=== PATIENT | male | born 1955 | race Caucasian/White ===

== ENCOUNTER → 2018-01-09 | Outpatient (CLI) | payer MEDICARE, BC ==
[2018-01-09 13:03] LABS: Blood Urea Nitrogen 9 mg/dL (9-20)
--- NOTE | 2018-01-09 17:34 | MR ---
EXAMINATION TYPE: MR brain and iac wo/w con DATE OF EXAM: 01/09/2018 COMPARISON: None HISTORY: Hearing loss,tinntinitis CONTRAST: Performed utilizing 10 mL intravenous Gadavist gadolinium contrast. TECHNIQUE: Multiplanar, multiecho imaging on a 3.0 Merry magnet is performed through the brain. Atte ntion is paid to the internal auditory canals with thin section imaging. Postcontrast imaging is per formed through the internal auditory canals. FINDINGS:Craniovertebral junction is normal. The pituitary is normal. Diffusion-weighted imaging is performed. No suspicious hyperintensity is present to suggest an acute intracranial infarct or acute ischemic area. Signal within the brain is very minimal periventricular white matter changes. Normal vascular structu res. Present on post contrast images. Thin section imaging is performed through the internal auditory canals and cerebellar pontine angles. No cerebellar pontine angle masses are evident. The internal auditory canals appear normal without expansion or erosion. Postcontrast imaging was performed. No suspicious enhancement is evident within the internal audito ry canals or the included portions of the brain. IMPRESSIONS: 1. Normal internal auditory canals.
== END | disposition home or self-care (01) ==
LOC: RADMRIMAIN 12:23
PROVIDERS: ATTEND Otolaryngology
DX: H91.92 Unspecified hearing loss, left ear (principal); H93.12 Tinnitus, left ear; H93.3X2 Disorders of left acoustic nerve; R42 Dizziness and giddiness
CPT/HCPCS: 82565; 84520; 70553; 36415; A9585

== ENCOUNTER → 2018-02-21 | Outpatient (CLI) | payer MEDICARE, BC ==
--- NOTE | 2018-02-22 14:01 | XR ---
Lumbar spine HISTORY: Low back pain 3 views of the lumbar spine Bone mineralization is maintained. Lumbar vertebral body height and alignment are normal. Hypertrophi c spondylosis is noted, there is some loss of disc height L3-4 greater than the remaining interverteb ral levels. Sclerosis present in the posterior elements of the lower lumbar spine. IMPRESSION: Degenerative disc disease and facet arthropathy. Consider lumbar MRI.
== END | disposition home or self-care (01) ==
LOC: RADXRMAIN 15:41
PROVIDERS: ATTEND Anesthesiology
DX: M51.36 Other intervertebral disc degeneration, lumbar region (principal); M46.96 Unspecified inflammatory spondylopathy, lumbar region
CPT/HCPCS: 72100

== ENCOUNTER → 2019-12-31 | Outpatient (CLI) | payer MEDICARE ==
[2019-12-31 12:53] LABS: Basophils % (A) 0 %; Eosinophils # (A) 0.2 k/uL (0-0.7); Eosinophils % (A) 3 %; HCT 46.3 % (39.0-53.0); HGB 15.3 gm/dL (13.0-17.5); Lymphocytes # (A) 1.8 k/uL (1.0-4.8); Lymphocytes % (A) 26 %; MCH 30.1 pg (25.0-35.0); MCV 91.3 fL (80.0-100.0); Mean Platelet Volume 8.4; Monocytes # (A) 0.3 k/uL (0-1.0); Monocytes % (A) 5 %; Neutrophils # (A) 4.6 k/uL (1.3-7.7); Neutrophils % (A) 65 %; Platelet Count 148 k/uL (150-450); RBC 5.07 m/uL (4.30-5.90); RDW 13.9 % (11.5-15.5)
[2019-12-31 20:36] LABS: African American GFR (CKD) 102.8 (60.0-200.0); Albumin 4.3 g/dL (3.80-4.90); Albumin/Globulin Ratio 1.87 (1.60-3.17); Anion Gap 8.5 mmol/L (4.00-12.00); Calcium 9.5 mg/dL (8.7-10.3); Carbon Dioxide 26.5 mmol/L (21.6-31.8); Chol/HDL Ratio 3.4; Globulin 2.3 g/dL (1.6-3.3); LDL Cholesterol,Calculated 97.4 mg/dL (0.0-131.0); Non-African American GFR(CKD) 88.7 (60.0-200.0); Potassium 4.5 mmol/L (3.5-5.5); Total Bilirubin 0.7 mg/dL (0.3-1.2); Total Protein 6.6 g/dL (6.2-8.2); VLDL Calculation 15.6 mg/dL (5.00-40.00)
[2019-12-31 20:44] LABS: Prostate Specific Antigen 1.1 ng/mL (0.0-4.5)
== END | disposition home or self-care (01) ==
LOC: LABWHC1 11:46
PROVIDERS: ATTEND Family Medicine
DX: E78.2 Mixed hyperlipidemia (principal); Z12.5 Encounter for screening for malignant neoplasm of prostate
CPT/HCPCS: 36415; 80053; 80061; 84153; 85025

== ENCOUNTER → 2020-02-22 | Outpatient (CLI) | payer OTHER, MEDICARE | END | disposition home or self-care (01) | LOC: RADMRIMAIN 15:43 | PROVIDERS: ATTEND Anesthesiology | DX: Z53.9 Procedure and treatment not carried out, unspecified reason (principal) ==

== ENCOUNTER → 2021-01-23 | Outpatient (CLI) | payer MEDICARE ==
[2021-01-23 19:26] LABS: HCT 44.3 % (39.6-50.0); HGB 14.4 g/dL (13.0-17.0); MCH 29.2 pg (27.0-32.0); MCHC 32.5 g/dL (32.0-37.0); MCV 89.9 fL (80.0-97.0); Mean Platelet Volume 12.9 fL (9.5-12.2); Platelet Count 160 X 10*3/uL (140-440); RBC 4.93 X 10*6/uL (4.40-5.60); RDW 13.2 % (11.5-14.5); WBC 8.22 X 10*3/uL (4.50-10.00)
[2021-01-23 21:16] LABS: African American GFR (CKD) 102.1 (60.0-200.0); Albumin 4.3 g/dL (3.8-4.9); Albumin/Globulin Ratio 1.54 (1.60-3.17); Anion Gap 12.7 mmol/L (4.00-12.00); BUN/Creat Ratio 9.44 Ratio (12.00-20.00); Blood Urea Nitrogen 8.5 mg/dL (9.0-27.0); Calcium 9.7 mg/dL (8.7-10.3); Carbon Dioxide 28.3 mmol/L (21.6-31.8); Globulin 2.8 g/dL (1.6-3.3); Non-African American GFR(CKD) 88.1 (60.0-200.0); Potassium 4.1 mmol/L (3.5-5.5); T4, Free (Free Thyroxine) 1.39 ng/dL (0.800-1.800); Testosterone 96.9 ng/mL (86.98-780.10); Total Bilirubin 0.4 mg/dL (0.30-1.20); Total Protein 7.1 g/dL (6.2-8.2)
== END | disposition home or self-care (01) ==
LOC: LABWHC1 11:54
PROVIDERS: ATTEND Psychiatry & Neurology Neurology
DX: F43.23 Adjustment disorder with mixed anxiety and depressed mood (principal); R53.83 Other fatigue
CPT/HCPCS: 36415; 80053; 82306; 82607; 84403; 84439; 84443; 84481; 85027

== ENCOUNTER → 2021-07-04 | Outpatient (CLI) | payer MEDICARE ==
[2021-07-04 19:10] LABS: ALT 8 U/L (10-49); AST 23 U/L (14-35); African American GFR (CKD) 107.1 (60.0-200.0); Albumin 4.1 g/dL (3.8-4.9); Albumin/Globulin Ratio 1.41 (1.60-3.17); Alkaline Phosphatase 94 U/L (41-126); BUN/Creat Ratio 17.63 Ratio (12.00-20.00); Blood Urea Nitrogen 14.1 mg/dL (9.0-27.0); Calcium 9.5 mg/dL (8.7-10.3); Carbon Dioxide 26.6 mmol/L (20.0-27.5); Chloride 102 mmol/L (96-109); Globulin 2.9 g/dL (1.6-3.3); Glucose 103 mg/dL (70-110); Non-African American GFR(CKD) 92.4 (60.0-200.0); Potassium 3.8 mmol/L (3.5-5.5); Sodium 140 mmol/L (135-145)
[2021-07-04 19:11] LABS: Chol/HDL Ratio 3.89 Ratio; LDL Cholesterol,Calculated 103.1 mg/dL (0.0-131.0); VLDL Calculation 15.78 mg/dL (5.00-40.00)
== END | disposition home or self-care (01) ==
LOC: LABWHC1 11:28
PROVIDERS: ATTEND Family Medicine
DX: Z12.5 Encounter for screening for malignant neoplasm of prostate (principal); Z11.9 Encounter for screening for infectious and parasitic diseases, unspecified; I10 Essential (primary) hypertension
CPT/HCPCS: 86803; 80061; 80053; 36415; G0103

== ENCOUNTER 2021-09-19 14:12 | Emergency (ER) | payer MEDICARE ==
[2021-09-19 14:36] VITALS: TEMP 98.4
[2021-09-19] MEDS ORDERED: SODIUM CHLORIDE 0.9% 1,000 ML IV STA (15:19)
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
[2021-09-19 16:11] LABS: Basophils # (A) 0.1 k/uL (0-0.2); Basophils % (A) 1 %; Eosinophils # (A) 0.6 k/uL (0-0.7); Eosinophils % (A) 8 %; HCT 45.2 % (39.0-53.0); HGB 14.9 gm/dL (13.0-17.5); Lymphocytes # (A) 1.1 k/uL (1.0-4.8); Lymphocytes % (A) 13 %; MCH 28.8 pg (25.0-35.0); MCHC 32.9 g/dL (31.0-37.0); MCV 87.6 fL (80.0-100.0); Mean Platelet Volume 7.6; Monocytes # (A) 0.3 k/uL (0-1.0); Monocytes % (A) 4 %; Neutrophils # (A) 5.8 k/uL (1.3-7.7); Neutrophils % (A) 73 %; Platelet Count 203 k/uL (150-450); RBC 5.16 m/uL (4.30-5.90); RDW 13.9 % (11.5-15.5)
[2021-09-19 16:21] LABS: African American GFR (CKD) >90 (>60 ml/min/1.73 sqM); Anion Gap 7 mmol/L; Blood Urea Nitrogen 17 mg/dL (9-20); Calcium 9.7 mg/dL (8.4-10.2); Carbon Dioxide 30 mmol/L (22-30); Chloride 99 mmol/L (98-107); Glucose 108 mg/dL (74-99); Non-African American GFR(CKD) 89 (>60 ml/min/1.73 sqM); Sodium 136 mmol/L (137-145)
[2021-09-19 16:42] LABS: Appearance,Urine Clear (Clear); Bacteria,Urine Rare /hpf; Bilirubin,Urine Negative (Negative); Blood,Urine Moderate (Negative); Color,Urine Yellow; Glucose,Urine (UA) Negative (Negative); Hyaline Casts,Urine 3 /lpf (0-2); Ketones,Urine Negative (Negative); Leukocyte Esterase,Urine Moderate (Negative); Mucus,Urine Few /hpf; Nitrite,Urine Negative (Negative); PH, Urine 5.5 (5.0-8.0); Protein,Urine Trace (Negative); RBC,Urine 66 /hpf (0-5); Specific Gravity,Urine 1.016 (1.001-1.035); Squamous Epithelial Cell,Urine 1 /hpf (0-4); WBC,Urine 17 /hpf (0-5)
[2021-09-19 17:32] VITALS: BP 140/106; PULSE 110; RESP 14
== END 2021-09-19 17:32 | disposition home or self-care (01) ==
LOC: EC 14:12
DX: R53.1 Weakness (principal); I10 Essential (primary) hypertension; F41.9 Anxiety disorder, unspecified; Z88.0 Allergy status to penicillin; Z20.822 Contact with and (suspected) exposure to COVID-19
CPT/HCPCS: 36415; 80048; 81001; 85025; 87077; 87086; 87186; 87636; 93005; 96360; 96361; 99285

== ENCOUNTER 2022-02-18 16:25 | Emergency (ER) | payer OTHER, MEDICARE ==
[2022-02-18 17:04] VITALS: RESP 18
--- NOTE | 2022-02-18 19:51 | ED ---
Male Urogenital HPI - General Chief complaint: Urogenital Stated complaint: Leaky Bladder Time Seen by Provider: 02/18/22 18:30 Source: patient, RN notes reviewed Mode of arrival: wheelchair - History of Present Illness Initial comments: This is a pleasant 66-year-old male with a history of paraplegia. Patient also has neurogenic bladder. Patient has had long-standing bladder issues and has to self catheter home. He has had problems with recurrent infections. Patient just finished an antibiotic for upper respiratory illness as well as a bladder infection. However the patient states he is unable to self catheter home. He states he is leaking some urine at night. Having difficulty with self catheterization. Denying any fevers or chills. No headache, no fever or chills, no changes in vision or hearing, no sore throat or difficulty with speech, no neck pain, no chest pain or shortness of breath, no abdominal pain, no nausea or vomiting, no changes in bowel movements, no numbness or tingling, no extremity pain, no skin rashes or lesions. Past medical, surgical, social, and family history reviewed. - Related Data Previous Rx's Medication Instructions Recorded Cefpodoxime Proxetil [Vantin] 200 mg PO Q12HR 10 Days #20 tab 09/19/21 Tamsulosin [Flomax] 0.4 mg PO DAILY #14 cap 02/18/22 Allergies Allergy/AdvReac Type Severity Reaction Status Date / Time Penicillins Allergy Unknown Verified 02/18/22 17:04 Review of Systems ROS Statement: Those systems with pertinent positive or pertinent negative responses have been documented in the HPI. ROS Other: All systems not noted in ROS Statement are negative. Past Medical History Past Medical History: Hypertension Additional Past Medical History / Comment(s): paraplegia History of Any Multi-Drug Resistant Organisms: None Reported Past Surgical History: Back Surgery, Orthopedic Surgery Past Psychological History: Anxiety Smoking Status: Never smoker Past Alcohol Use History: None Reported Past Drug Use History: None Reported General Exam - General Exam Comments Initial Comments: Patient does not appear to be ill or toxic. Vital signs reviewed. General appearance: alert, in no apparent distress Head exam: Present: atraumatic, normocephalic, normal inspection Eye exam: Present: normal appearance, PERRL, EOMI. Absent: scleral icterus, conjunctival injection, periorbital swelling ENT exam: Present: normal exam, mucous membranes moist Neck exam: Present: normal inspection. Absent: tenderness, meningismus, lymphadenopathy Respiratory exam: Present: normal lung sounds bilaterally. Absent: respiratory distress, wheezes, rales, rhonchi, stridor Cardiovascular Exam: Present: regular rate, normal rhythm, normal heart sounds. Absent: systolic murmur, diastolic murmur, rubs, gallop, clicks GI/Abdominal exam: Present: soft, normal bowel sounds. Absent: distended, tenderness, guarding, rebound, rigid Extremities exam: Present: normal inspection, normal capillary refill. Absent: tenderness, pedal edema Back exam: Present: normal inspection Neurological exam: Present: alert, oriented X3, CN II-XII intact Psychiatric exam: Present: normal affect, normal mood Skin exam: Present: warm, dry, intact, normal color. Absent: rash Course Vital Signs 02/18/22 17:00 Temperature 98.7 F Pulse Rate 95 Respiratory 18 Rate Blood Pressure 126/76 O2 Sat by Pulse 95 Oximetry - Reevaluation(s) Reevaluation #1: 02/18/22 22:03 Patient had about 500 mL of urine on bladder scan. Patient was doing well after Holt catheter placement. Patient had 6 white cells per high-powered field. No evidence of infection. We will have the patient follow up with urology or his regular physician. Given information for on-call urology. Discussed return or follow parameters in detail. Patient voiced understanding. Released in stable condition. Patient improved Medical Decision Making - Medical Decision Making She presented with urinary retention, likely secondary to neurogenic bladder as the patient is paraplegic. No evidence of infectious process. Holt catheter placed after 500 mL were found on bladder scan. Patient tolerated well. Gave urology follow-up. Patient was told to return to the ER for any signs or symptoms worsen. Told to return immediately if any other problems arise. All questions answered. Treatment plan discussed. Patient in agreement Every effort has been made to ensure accuracy of this dictation. However, due to the limitations of electronic medical records and dictation devices, errors in charting still occur. Supervising physician Dr. Huston - Lab Data Result diagrams: 02/18/22 20:30 02/18/22 20:30 Lab Results 02/18/22 02/18/22 02/18/22 Range/Units 20:30 20:30 21:07 WBC 13.3 H (3.8-10.6) k/uL RBC 5.36 (4.30-5.90) m/uL Hgb 15.9 (13.0-17.5) gm/dL Hct 46.5 (39.0-53.0) % MCV 86.8 (80.0-100.0) fL MCH 29.7 (25.0-35.0) pg MCHC 34.2 (31.0-37.0) g/dL RDW 13.2 (11.5-15.5) % Plt Count 201 (150-450) k/uL MPV 8.8 Neutrophils % 76 % Lymphocytes % 17 % Monocytes % 6 % Eosinophils % 0 % Basophils % 0 % Neutrophils # 10.1 H (1.3-7.7) k/uL Lymphocytes # 2.2 (1.0-4.8) k/uL Monocytes # 0.7 (0-1.0) k/uL Eosinophils # 0.0 (0-0.7) k/uL Basophils # 0.0 (0-0.2) k/uL Sodium 138 (137-145) mmol/L Potassium 4.7 (3.5-5.1) mmol/L Chloride 99 (98-107) mmol/L Carbon Dioxide 31 H (22-30) mmol/L Anion Gap 8 mmol/L BUN 20 (9-20) mg/dL Creatinine 0.74 (0.66-1.25) mg/dL Est GFR (CKD-EPI)AfAm >90 (>60 ml/min/1.73 sqM) Est GFR (CKD-EPI)NonAf >90 (>60 ml/min/1.73 sqM) Glucose 116 H (74-99) mg/dL Calcium 9.4 (8.4-10.2) mg/dL Urine Color Yellow Urine Appearance Clear (Clear) Urine pH 5.0 (5.0-8.0) Ur Specific [place] 1.015 (1.001-1.035) Urine Protein Negative (Negative) Urine Glucose (UA) Negative (Negative) Urine Ketones Negative (Negative) Urine Blood Negative (Negative) Urine Nitrite Negative (Negative) Urine Bilirubin Negative (Negative) Urine Urobilinogen <2.0 (<2.0) mg/dL Ur Leukocyte Esterase Moderate H (Negative) Urine RBC <1 (0-5) /hpf Urine WBC 6 H (0-5) /hpf Urine Mucus Rare H (None) /hpf Urine Yeast (Budding) Rare H (None) /hpf Disposition Clinical Impression: Acute urinary retention Disposition: HOME SELF-CARE Condition: Good Instructions (If sedation given, give patient instructions): Urinary Retention in Men (ED), Holt Catheter Placement and Care (ED) Additional Instructions: Review the Holt catheter in for 3-4 days. Follow-up with urology or your regular physician for removal. Follow-up with your regular physician as directed. Return to the ER immediately if any symptoms worsen, new symptoms arise, or any other problems develop. Prescriptions: Tamsulosin [Flomax] 0.4 mg PO DAILY #14 cap Is patient prescribed a controlled substance at d/c from ED?: No Referrals: Mahendra Yanez MD [STAFF PHYSICIAN] - 02/21/22 Time of Disposition: 22:03
[2022-02-18 21:01] LABS: Basophils % (A) 0 %; Eosinophils % (A) 0 %; HCT 46.5 % (39.0-53.0); HGB 15.9 gm/dL (13.0-17.5); Lymphocytes # (A) 2.2 k/uL (1.0-4.8); Lymphocytes % (A) 17 %; MCH 29.7 pg (25.0-35.0); MCHC 34.2 g/dL (31.0-37.0); MCV 86.8 fL (80.0-100.0); Mean Platelet Volume 8.8; Monocytes # (A) 0.7 k/uL (0-1.0); Monocytes % (A) 6 %; Neutrophils # (A) 10.1 k/uL (1.3-7.7); Neutrophils % (A) 76 %; Platelet Count 201 k/uL (150-450); RBC 5.36 m/uL (4.30-5.90); RDW 13.2 % (11.5-15.5); WBC 13.3 k/uL (3.8-10.6)
[2022-02-18 21:14] LABS: African American GFR (CKD) >90 (>60 ml/min/1.73 sqM); Anion Gap 8 mmol/L; Blood Urea Nitrogen 20 mg/dL (9-20); Calcium 9.4 mg/dL (8.4-10.2); Carbon Dioxide 31 mmol/L (22-30); Chloride 99 mmol/L (98-107); Glucose 116 mg/dL (74-99); Non-African American GFR(CKD) >90 (>60 ml/min/1.73 sqM); Potassium 4.7 mmol/L (3.5-5.1); Sodium 138 mmol/L (137-145)
[2022-02-18 21:38] LABS: Appearance,Urine Clear (Clear); Bilirubin,Urine Negative (Negative); Blood,Urine Negative (Negative); Budding Yeast,Urine Rare /hpf; Color,Urine Yellow; Glucose,Urine (UA) Negative (Negative); Ketones,Urine Negative (Negative); Leukocyte Esterase,Urine Moderate (Negative); Mucus,Urine Rare /hpf; Nitrite,Urine Negative (Negative); Protein,Urine Negative (Negative); RBC,Urine <1 /hpf (0-5); Specific Gravity,Urine 1.015 (1.001-1.035); Urobilinogen,Urine <2.0 mg/dL (<2.0); WBC,Urine 6 /hpf (0-5)
[2022-02-18] MEDS ORDERED: SULFAMETH-TMP DS STARTER PACK 2 TAB BTL PO STA (22:21)
[2022-02-18 22:39] VITALS: BP 165/88; PULSE 82; TEMP 97.8
== END 2022-02-18 22:22 | disposition home or self-care (01) ==
LOC: EC 16:25
DX: R33.9 Retention of urine, unspecified (principal); I10 Essential (primary) hypertension; F41.9 Anxiety disorder, unspecified; Z88.0 Allergy status to penicillin
CPT/HCPCS: 36415; 51798; 80048; 81001; 85025; 87086; 99283; 99284

== ENCOUNTER 2022-06-04 14:56 | Inpatient (IN) | payer MEDICARE ==
--- NOTE | 2022-06-04 15:46 | ED ---
Skin/Abscess/FB HPI - General Chief complaint: Skin/Abscess/Foreign Body Stated complaint: Bed Sore Time Seen by Provider: 06/04/22 15:18 Source: patient, family Mode of arrival: wheelchair Limitations: no limitations - History of Present Illness Initial comments: This patient is a 66-year-old man who states she was directed to come here by his visiting nurse. She had last seen him 2 weeks ago and then visited him today. On checking his sacral decubitus ulcer, she felt that it had worsened and would require some debridement. The patient states she is not really having much in way of symptoms. He has not noted fever or chills. No chest pain, d yspnea, tachycardia. MD complaint: other -: week(s) Tetanus Up to Date: yes Location: buttocks Severity scale (1-10): 0 Improves with: none Worsens with: none Associated symptoms: denies other symptoms Treatments Prior to Arrival: none - Related Data Home Medications Medication Instructions Recorded Confirmed ALPRAZolam [Xanax] 0.5 mg PO Q6H PRN 06/04/22 06/04/22 Morphine Pain Pump 1 dose INTRATHECA CONTINUOUS 06/04/22 06/04/22 oxyCODONE-APAP 10-325MG [Percocet 1 tab PO BID PRN 06/04/22 06/04/22 10-325 mg] Allergies Allergy/AdvReac Type Severity Reaction Status Date / Time Penicillins Allergy Unknown Verified 06/11/22 13:52 Childhood Review of Systems ROS Statement: Those systems with pertinent positive or pertinent negative responses have been documented in the HPI. ROS Other: All systems not noted in ROS Statement are negative. Constitutional: Denies: fever, chills Respiratory: Denies: cough, dyspnea Cardiovascular: Denies: chest pain, edema, syncope Gastrointestinal: Denies: abdominal pain, vomiting, diarrhea, constipation Genitourinary: Denies: dysuria, hematuria Skin: Reports: as per HPI, other (Ulcer). Denies: rash Past Medical History Past Medical History: Hypertension Additional Past Medical History / Comment(s): paraplegia History of Any Multi-Drug Resistant Organisms: None Reported Past Surgical History: Back Surgery, Orthopedic Surgery Past Psychological History: Anxiety Smoking Status: Never smoker Past Alcohol Use History: None Reported Past Drug Use History: None Reported General Exam Limitations: no limitations General appearance: alert, in no apparent distress Head exam: Present: atraumatic, normocephalic Respiratory exam: Present: normal lung sounds bilaterally. Absent: respiratory distress, wheezes, rales, rhonchi, stridor Cardiovascular Exam: Present: regular rate, normal rhythm, normal heart sounds. Absent: systolic murmur, diastolic murmur, rubs, gallop GI/Abdominal exam: Present: soft, other (Pain pump palpable in the left upper qu adrant.). Absent: distended, tenderness, guarding, rebound, rigid, mass Extremities exam: Present: normal inspection, normal capillary refill Neurological exam: Present: alert Skin exam: Present: warm, dry, normal color, other (There is a sacral decubitus ulcer, roughly circular approximately 7-8 cm diameter, packed wet-to-dry, small amount of necrotic tissue, no purulent discharge.) Course Vital Signs 06/04/22 06/04/22 06/04/22 15:12 17:21 19:01 Temperature 97.9 F Pulse Rate 100 88 83 Respiratory 20 18 18 Rate Blood Pressure 115/71 144/61 173/73 O2 Sat by Pulse 95 99 96 Oximetry 06/04/22 20:59 Temperature Pulse Rate 81 Respiratory 17 Rate Blood Pressure 124/58 O2 Sat by Pulse 96 Oximetry Medical Decision Making - Medical Decision Making This patient is a 66-year-old man here with sacral decubitus ulcer which will require some debridement. Patient admitted to the medical physician with surgical consultation as well as wound care consultation. Was pt. sent in by a medical professional or institution (, PA, LEGAL RECEPTIONIST, urgent care, hospital, or senior living...) When possible be specific @ -[Patient was recommended to come emergency department by his visiting nurse Did you speak to anyone other than the patient for history (EMS, parent, family, police, friend...)? What history was obtained from this source @ -[No] Did you review nursing and triage notes (agree or disagree)? Why? @ -[I reviewed and agree with nursing and triage notes] Were old charts reviewed (outside hosp., previous admission, EMS record, old EKG, old radiological studies, urgent care reports/EKG's, senior living records)? Report findings @ -[No old charts were reviewed] Differential Diagnosis (chest pain, altered mental status, abdominal pain women, abdominal pain men, vaginal bleeding, weakness, fever, dyspnea, syncope, headache, dizziness, GI bleed, back pain, seizure, CVA, palpatations, mental health, musculoskeletal)? @ -[Differential diagnosis includes decubitus ulcer with infection, osteomyelitis, and other tissue infection. EKG interpreted by me (3pts min.). @ -[As above] X-rays interpreted by me (1pt min.). @ -[None done] CT interpreted by me (1pt min.). @ -[None done] U/S interpreted by me (1pt. min.). @ -[None done] What testing was considered but not performed or refused? (CT, X-rays, U/S, labs)? Why? @ -[None] What meds were considered but not given or refused? Why? @ -[None] Did you discuss the management of the patient with other professionals (professionals i.e. , PA, LEGAL RECEPTIONIST, lab, RT, psych nurse, social worker psychiatric, addiction medicine physician, teacher, intelligence officer basic, caseworker protective services)? Give summary @ -[Admitting physician Was smoking cessation discussed for >3mins.? @ -[No] Was critical care preformed (if so, how long)? @ -[No] Were there social determinants of health that impacted care today? How? (Homelessness, low income, unemployed, alcoholism, drug addiction, transportation, low edu. Level, literacy, decrease access to med. care, shelter, rehab)? @ -[No] Was there de-escalation of care discussed even if they declined (Discuss DNR or withdrawal of care, Hospice)? DNR status @ -[No] What co-morbidities impacted this encounter? (DM, HTN, Smoking, COPD, CAD, Cancer, CVA, ARF, Chemo, Hep., AIDS, mental health diagnosis, sleep apnea, morb id obesity)? @ -[Paraplegia Was patient admitted / discharged? Hospital course, mention meds given and route, prescriptions, significant lab abnormalities, going to OR and other pertinent info. @ -[Admitted, with antibiotic coverage and surgical consultation for suspected debridement Undiagnosed new problem with uncertain prognosis? @ -[No] Drug Therapy requiring intensive monitoring for toxicity (Heparin, Nitro, Insulin, Cardizem)? @ -[No] Were any procedures done? @ -[No] Diagnosis/symptom? @ -[1. Chronic sacral decubitus ulcer with suspected acute infection Acute, or Chronic, or Acute on Chronic? @ -[default] Uncomplicated (without systemic symptoms) or Complicated (systemic symptoms)? @ -[Uncomplicated Side effects of treatment? @ -[No] Exacerbation, Progression, or Severe Exacerbation? @ -[No] Poses a threat to life or bodily function? How? (Chest pain, USA, [place], pneumonia, PE, COPD, DKA, ARF, appy, cholecystitis, CVA, Diverticulitis, Homicidal, Suicidal, threat to staff... and all critical care pts) @ -[No] - Lab Data Result diagrams: 06/13/22 06:36 06/13/22 06:36 Lab Results 06/04/22 06/04/22 06/05/22 Range/Units 16:21 16:21 08:49 WBC 12.0 H 10.7 H (3.8-10.6) k/uL RBC 4.10 L 3.83 L (4.30-5.90) m/uL Hgb 11.6 L 11.1 L (13.0-17.5) gm/dL Hct 35.4 L 33.2 L (39.0-53.0) % MCV 86.4 86.8 (80.0-100.0) fL MCH 28.4 29.0 (25.0-35.0) pg MCHC 32.8 33.4 (31.0-37.0) g/dL RDW 13.7 13.6 (11.5-15.5) % Plt Count 413 427 (150-450) k/uL MPV 7.6 7.6 Neutrophils % 84 83 % Lymphocytes % 8 10 % Monocytes % 5 4 % Eosinophils % 2 2 % Basophils % 0 0 % Neutrophils # 10.1 H 8.9 H (1.3-7.7) k/uL Lymphocytes # 1.0 1.1 (1.0-4.8) k/uL Monocytes # 0.6 0.4 (0-1.0) k/uL Eosinophils # 0.2 0.2 (0-0.7) k/uL Basophils # 0.0 0.0 (0-0.2) k/uL ESR 95 H (0-15) mm/hr Sodium 133 L (137-145) mmol/L Potassium 3.9 (3.5-5.1) mmol/L Chloride 92 L (98-107) mmol/L Carbon Dioxide 36 H (22-30) mmol/L Anion Gap 5 mmol/L BUN 12 (9-20) mg/dL Creatinine 0.56 L (0.66-1.25) mg/dL Est GFR (CKD-EPI)AfAm >90 (>60 ml/min/1.73 sqM) Est GFR (CKD-EPI)NonAf >90 (>60 ml/min/1.73 sqM) Glucose 120 H (74-99) mg/dL Calcium 8.3 L (8.4-10.2) mg/dL Magnesium (1.6-2.3) mg/dL Total Bilirubin 0.5 (0.2-1.3) mg/dL AST 30 (17-59) U/L ALT 27 (4-49) U/L Alkaline Phosphatase 105 (38-126) U/L C-Reactive Protein 13.5 H (<1.0) mg/dL Total Protein 6.3 (6.3-8.2) g/dL Albumin 2.9 L (3.5-5.0) g/dL Globulin g/dL Albumin/Globulin Ratio 06/05/ Range/Units 08:49 WBC (3.8-10.6) k/uL RBC (4.30-5.90) m/uL Hgb (13.0-17.5) gm/dL Hct (39.0-53.0) % MCV (80.0-100.0) fL MCH (25.0-35.0) pg MCHC (31.0-37.0) g/dL RDW (11.5-15.5) % Plt Count (150-450) k/uL MPV Neutrophils % % Lymphocytes % % Monocytes % % Eosinophils % % Basophils % % Neutrophils # (1.3-7.7) k/uL Lymphocytes # (1.0-4.8) k/uL Monocytes # (0-1.0) k/uL Eosinophils # (0-0.7) k/uL Basophils # (0-0.2) k/uL ESR (0-15) mm/hr Sodium 134 L (137-145) mmol/L Potassium 3.3 L (3.5-5.1) mmol/L Chloride 92 L (98-107) mmol/L Carbon Dioxide 36 H (22-30) mmol/L Anion Gap 6 mmol/L BUN 10 (9-20) mg/dL Creatinine 0.62 L (0.66-1.25) mg/dL Est GFR (CKD-EPI)AfAm >90 (>60 ml/min/1.73 sqM) Est GFR (CKD-EPI)NonAf >90 (>60 ml/min/1.73 sqM) Glucose 163 H (74-99) mg/dL Calcium 8.2 L (8.4-10.2) mg/dL Magnesium 2.0 (1.6-2.3) mg/dL Total Bilirubin 0.5 (0.2-1.3) mg/dL AST 29 (17-59) U/L ALT 26 (4-49) U/L Alkaline Phosphatase 97 (38-126) U/L C-Reactive Protein (<1.0) mg/dL Total Protein 6.1 L (6.3-8.2) g/dL Albumin 2.8 L (3.5-5.0) g/dL Globulin 3.3 g/dL Albumin/Globulin Ratio 0.8 Disposition Clinical Impression: Sacral decubitus ulcer, stage IV Disposition: ADMITTED IP TO THIS HOSP Condition: Fair Is patient prescribed a controlled substance at d/c from ED?: No
[2022-06-04 16:54] LABS: Basophils % (A) 0 %; Eosinophils # (A) 0.2 k/uL (0-0.7); Eosinophils % (A) 2 %; HCT 35.4 % (39.0-53.0); HGB 11.6 gm/dL (13.0-17.5); Lymphocytes % (A) 8 %; MCH 28.4 pg (25.0-35.0); MCHC 32.8 g/dL (31.0-37.0); MCV 86.4 fL (80.0-100.0); Mean Platelet Volume 7.6; Monocytes # (A) 0.6 k/uL (0-1.0); Monocytes % (A) 5 %; Neutrophils # (A) 10.1 k/uL (1.3-7.7); Neutrophils % (A) 84 %; Platelet Count 413 k/uL (150-450); RDW 13.7 % (11.5-15.5)
[2022-06-04 17:13] LABS: ALT 27 U/L (4-49); AST 30 U/L (17-59); African American GFR (CKD) >90 (>60 ml/min/1.73 sqM); Albumin 2.9 g/dL (3.5-5.0); Alkaline Phosphatase 105 U/L (38-126); Anion Gap 5 mmol/L; Blood Urea Nitrogen 12 mg/dL (9-20); Calcium 8.3 mg/dL (8.4-10.2); Carbon Dioxide 36 mmol/L (22-30); Chloride 92 mmol/L (98-107); Glucose 120 mg/dL (74-99); Non-African American GFR(CKD) >90 (>60 ml/min/1.73 sqM); Potassium 3.9 mmol/L (3.5-5.1); Sodium 133 mmol/L (137-145); Total Bilirubin 0.5 mg/dL (0.2-1.3); Total Protein 6.3 g/dL (6.3-8.2)
[2022-06-04 17:26] LABS: C Reactive Protein 13.5 mg/dL (<1.0)
[2022-06-04 17:47] LABS: Erythrocyte Sedimentation Rate 95 mm/hr (0-15)
[2022-06-04] MEDS ORDERED: ACETAMINOPHEN TAB 325 MG TAB PO PRN (18:22)
[2022-06-04] MEDS ORDERED: NALOXONE 0.4 MG/ML 1 ML VIAL IV PRN (18:22)
[2022-06-04] MEDS: SODIUM CHLORIDE 0.9% 1,000 ML IV SCH (19:05)
[2022-06-04] MEDS: oxyCODONE-APAP 10-325MG 1 EACH TAB PO PRN (19:07)
[2022-06-05] MEDS ORDERED: NON FORMULARY DRUG (Morphine Pain Pump 1 DOSE) IV SCH (01:30)
[2022-06-05] MEDS: NON FORMULARY DRUG (Morphine Pain Pump 1 DOSE) IV SCH (01:32)
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
[2022-06-05] MEDS: HEPARIN SODIUM,PORCINE/PF 5,000 UNIT/0.5 ML SYRINGE SQ SCH ×2 (08:42→18:24)
[2022-06-05] MEDS: ALPRAZolam 0.5 MG TAB PO PRN (08:48)
[2022-06-05] MEDS: oxyCODONE-APAP 10-325MG 1 EACH TAB PO PRN (08:48)
[2022-06-05 09:08] LABS: Basophils % (A) 0 %; Eosinophils # (A) 0.2 k/uL (0-0.7); Eosinophils % (A) 2 %; HCT 33.2 % (39.0-53.0); HGB 11.1 gm/dL (13.0-17.5); Lymphocytes # (A) 1.1 k/uL (1.0-4.8); Lymphocytes % (A) 10 %; MCHC 33.4 g/dL (31.0-37.0); MCV 86.8 fL (80.0-100.0); Mean Platelet Volume 7.6; Monocytes # (A) 0.4 k/uL (0-1.0); Monocytes % (A) 4 %; Neutrophils # (A) 8.9 k/uL (1.3-7.7); Neutrophils % (A) 83 %; Platelet Count 427 k/uL (150-450); RBC 3.83 m/uL (4.30-5.90); RDW 13.6 % (11.5-15.5); WBC 10.7 k/uL (3.8-10.6)
[2022-06-05 09:18] LABS: ALT 26 U/L (4-49); AST 29 U/L (17-59); African American GFR (CKD) >90 (>60 ml/min/1.73 sqM); Albumin 2.8 g/dL (3.5-5.0); Albumin/Globulin Ratio 0.8; Alkaline Phosphatase 97 U/L (38-126); Anion Gap 6 mmol/L; Blood Urea Nitrogen 10 mg/dL (9-20); Calcium 8.2 mg/dL (8.4-10.2); Carbon Dioxide 36 mmol/L (22-30); Chloride 92 mmol/L (98-107); Globulin 3.3 g/dL; Glucose 163 mg/dL (74-99); Non-African American GFR(CKD) >90 (>60 ml/min/1.73 sqM); Potassium 3.3 mmol/L (3.5-5.1); Sodium 134 mmol/L (137-145); Total Bilirubin 0.5 mg/dL (0.2-1.3); Total Protein 6.1 g/dL (6.3-8.2)
--- NOTE | 2022-06-05 10:02 | CT ---
EXAMINATION TYPE: CT sacrum wo con DATE OF EXAM: 06/05/2022 COMPARISON: Prior CT abdomen and pelvis 2012 HISTORY: Sacral decubitus ulcer. CT DLP: 405.6 mGycm Automated exposure control for dose reduction was used. FINDINGS: There is skin defect or decubitus ulcer with believe packing along the posterior inferior a spect of the sacrum with abnormal surrounding soft tissue extending to the inferior posterior aspect of the left sacrum seen best on axial image 44. Cannot exclude bony destruction or involvement along the right posterior aspect on this image. Remainder of the sacrum is intact without definitive bony d estruction. There is no well-formed fluid collection or drainable abscess identified. There is mild/m oderate ill-defined fluid extending bilaterally greater on the left where there is more inferior exte nsion. Visualized pelvis shows moderate to severe concentric wall thickening in the poorly distended bladder . Cannot exclude acute infection in the appropriate clinical setting. There is partial visualization of known right inguinal hernia. IMPRESSION: As above. Known decubitus ulcer. This abuts the posterior inferior margin of the lower sa cristina making acute osteomyelitis impossible to exclude. No well-formed fluid collection or drainable a bscess noted.
[2022-06-05] MEDS ORDERED: VANCOMYCIN IV PER PHARMACY 1 EACH MISC MISCELLANE PRN (10:35)
[2022-06-05] MEDS ORDERED: POTASSIUM CHLORIDE ER 20 MEQ TAB.ER PO STA (10:39)
[2022-06-05] MEDS: CEFEPIME 2 GM in SODIUM CHLORIDE 0.9% 100 ML IVPB SCH ×2 (11:31→22:05)
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
[2022-06-05 13:11] VITALS: BMI 28.5
[2022-06-05] MEDS: VANCOMYCIN 1,500 MG in SODIUM CHLORIDE 0.9% 500 ML 500 ML IVPB SCH (13:24)
[2022-06-05] MEDS: metroNIDAZOLE-NS PMX 500 MG in SALINE 1 100ML.BAG IVPB SCH ×2 (16:22→18:25)
[2022-06-05] MEDS: SODIUM CHLORIDE 0.9% 1,000 ML IV SCH (16:23)
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
[2022-06-06] MEDS: HEPARIN SODIUM,PORCINE/PF 5,000 UNIT/0.5 ML SYRINGE SQ SCH ×3 (02:09→18:56)
[2022-06-06] MEDS: metroNIDAZOLE-NS PMX 500 MG in SALINE 1 100ML.BAG IVPB SCH ×4 (02:09→18:56)
[2022-06-06] MEDS: VANCOMYCIN 1,500 MG in SODIUM CHLORIDE 0.9% 500 ML 500 ML IVPB SCH ×2 (02:10→15:18)
[2022-06-06] MEDS: SODIUM CHLORIDE 0.9% 1,000 ML IV SCH ×2 (03:08→16:51)
[2022-06-06] MEDS: NON FORMULARY DRUG (Morphine Pain Pump 1 DOSE) IV SCH (05:35)
[2022-06-06 08:42] LABS: HCT 30.4 % (39.6-50.0); HGB 9.4 g/dL (13.0-17.0); MCH 27.2 pg (27.0-32.0); MCHC 30.9 g/dL (32.0-37.0); MCV 88.1 fL (80.0-97.0); Mean Platelet Volume 10.6 fL (9.5-12.2); NRBC Per 100 WBC 0 /100 WBCS (0.0-0.0); Platelet Count 230 X 10*3/uL (140-440); RBC 3.45 X 10*6/uL (4.40-5.60); RDW 13.9 % (11.5-14.5)
[2022-06-06 08:52] LABS: ALT 21 U/L (10-49); AST 23 U/L (14-35); African American GFR (CKD) 119.7 (60.0-200.0); Albumin 2.5 g/dL (3.8-4.9); Albumin/Globulin Ratio 0.86 (1.60-3.17); Alkaline Phosphatase 77 U/L (41-126); BUN/Creat Ratio 15.17 Ratio (12.00-20.00); Blood Urea Nitrogen 9.1 mg/dL (9.0-27.0); Calcium 8.1 mg/dL (8.7-10.3); Carbon Dioxide 28.3 mmol/L (20.0-27.5); Chloride 100 mmol/L (96-109); Globulin 2.9 g/dL (1.6-3.3); Glucose 133 mg/dL (70-110); Non-African American GFR(CKD) 103.3 (60.0-200.0); Potassium 3.8 mmol/L (3.5-5.5); Sodium 135 mmol/L (135-145); Total Bilirubin <0.15 mg/dL (0.30-1.20); Total Protein 5.4 g/dL (6.2-8.2)
[2022-06-06] MEDS: CEFEPIME 2 GM in SODIUM CHLORIDE 0.9% 100 ML IVPB SCH ×2 (09:39→20:41)
[2022-06-06] MEDS ORDERED: LACTATED RINGERS 1,000 ML IV ONE (11:04)
[2022-06-06] MEDS ORDERED: ONDANSETRON 4 MG/2 ML VIAL ONE (11:06)
[2022-06-06] MEDS ORDERED: ONDANSETRON 4 MG/2 ML VIAL IVP ONE (11:08)
[2022-06-06] MEDS ORDERED: DEXAMETHASONE SOD PHOSPHATE 4 MG/ML 1 ML VIAL IVP ONE (11:08)
[2022-06-06] MEDS ORDERED: BUPIVACAIN-EPI 0.25%-1:200,000 30 ML VIAL SQ ONE (11:37)
[2022-06-06] MEDS ORDERED: fentaNYL (PF) 50 MCG/ML 2 ML AMP ONE (11:55)
[2022-06-06] MEDS ORDERED: PROPOFOL 10 MG/ML 20 ML VIAL IV ONE (11:55)
[2022-06-06] MEDS ORDERED: MIDAZOLAM 2 MG/2 ML VIAL ONE (11:55)
--- NOTE | 2022-06-06 12:40 | P.OP ---
Date of Procedure: 06/06/22 Preoperative Diagnosis: Decubitus ulcer Postoperative Diagnosis: Sacral decubitus ulcer Procedure(s) Performed: Debridement of necrotic skin and fat muscle at sacral decubitus ulcer Anesthesia: spinal Surgeon: Jose Armando Benitez Pathology: other Condition: stable Disposition: PACU Description of Procedure: The patient's placed on the operative table in the lateral position. He received IV sedation. The patient a large sacral meticulous ulcer located over the coccyx area. He also measured approximately 15 x 12 x 5 cm. There was necrotic skin and fat and muscle. The area was sharply dissected using a 15 blade and a pair Metzenbaum scissors. The specimens of pathology. After debridement of the necrotic tissue left cautery achieved hemostasis. The wound was then packed with wet-to-dry Kerlix. Patient tolerated procedure well. He was sent to recovery room stable condition
[2022-06-06] MEDS ORDERED: HYDROmorphone 0.5 MG/0.5 ML SYRINGE IVP ONE (12:57)
[2022-06-06] MEDS: oxyCODONE-APAP 10-325MG 1 EACH TAB PO PRN (15:22)
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
[2022-06-07] MEDS: HEPARIN SODIUM,PORCINE/PF 5,000 UNIT/0.5 ML SYRINGE SQ SCH ×4 (00:50→23:37)
[2022-06-07] MEDS: metroNIDAZOLE-NS PMX 500 MG in SALINE 1 100ML.BAG IVPB SCH ×5 (00:50→23:37)
[2022-06-07] MEDS: NON FORMULARY DRUG (Morphine Pain Pump 1 DOSE) IV SCH ×2 (00:51→23:35)
[2022-06-07] MEDS: SODIUM CHLORIDE 0.9% 1,000 ML IV SCH ×2 (01:58→17:35)
[2022-06-07] MEDS: VANCOMYCIN 1,500 MG in SODIUM CHLORIDE 0.9% 500 ML 500 ML IVPB SCH ×2 (01:58→14:17)
[2022-06-07] MEDS: oxyCODONE-APAP 10-325MG 1 EACH TAB PO PRN ×2 (05:35→17:41)
[2022-06-07] MEDS: CEFEPIME 2 GM in SODIUM CHLORIDE 0.9% 100 ML IVPB SCH ×3 (07:42→23:36)
[2022-06-07 08:49] LABS: HCT 30.9 % (39.6-50.0); HGB 9.7 g/dL (13.0-17.0); MCH 27.5 pg (27.0-32.0); MCHC 31.4 g/dL (32.0-37.0); MCV 87.5 fL (80.0-97.0); Mean Platelet Volume 10.4 fL (9.5-12.2); NRBC Per 100 WBC 0 /100 WBCS (0.0-0.0); Platelet Count 217 X 10*3/uL (140-440); RBC 3.53 X 10*6/uL (4.40-5.60); RDW 13.8 % (11.5-14.5); WBC 11.72 X 10*3/uL (4.50-10.00)
[2022-06-07 08:58] LABS: Magnesium 2.1 mg/dL (1.5-2.4)
[2022-06-07 09:02] LABS: ALT 17 U/L (10-49); AST 16 U/L (14-35); African American GFR (CKD) 119.7 (60.0-200.0); Albumin 2.5 g/dL (3.8-4.9); Albumin/Globulin Ratio 0.83 (1.60-3.17); Alkaline Phosphatase 82 U/L (41-126); BUN/Creat Ratio 18.67 Ratio (12.00-20.00); Blood Urea Nitrogen 11.2 mg/dL (9.0-27.0); Calcium 8.2 mg/dL (8.7-10.3); Carbon Dioxide 28.5 mmol/L (20.0-27.5); Chloride 103 mmol/L (96-109); Glucose 214 mg/dL (70-110); Non-African American GFR(CKD) 103.3 (60.0-200.0); Potassium 3.9 mmol/L (3.5-5.5); Sodium 138 mmol/L (135-145); Total Bilirubin <0.15 mg/dL (0.30-1.20); Total Protein 5.5 g/dL (6.2-8.2)
[2022-06-07] MEDS ORDERED: VANCOMYCIN TROUGH DUE 1 EACH MISC MISCELLANE ONE (13:00)
--- NOTE | 2022-06-07 13:14 | P.PN ---
Subjective Progress Note Date: 06/07/22 CHIEF COMPLAINT: Sacral decubitus ulcer HISTORY OF PRESENT ILLNESS: Patient is postop day #1 status post debridement of sacral decubitus ulcer. Patient sitting in bed comfortably. Tolerating diet. Denies any nausea vomiting. Afebrile. WBC 13 and 11.7 to Hgb 9.7 platelets 217 Patient seen and examined with Dr. hanson PHYSICAL EXAM: VITAL SIGNS: Reviewed. GENERAL: Well-developed in no acute distress. HEENT: No sclera icterus. Extraocular movements grossly intact. Moist buccal mucosa. Head is atraumatic, normocephalic. ABDOMEN: Soft. Nondistended. Nontender. NEUROLOGIC: Alert and oriented. Cranial nerves II through XII grossly intact. ASSESSMENT: 1. Sacral decubitus ulcer status post debridement 2. Possible osteomyelitis PLAN: -Patient can be discharged from surgical standpoint when medically cleared -Continue antibiotics per infectious disease -Continue wet-to-dry dressing changes -Patient is scheduled for a diverting colostomy next 06/14/[address] Hanson due to continuous fecal contamination of his sacral decubitus ulcer. Patient does not have to remain in hospital until the surgery. Recommend clear liquid diet 2 days prior to surgery Physician Police Chief note has been reviewed by physician. Signing provider agrees with the documented findings, assessment, and plan of care. Objective - Vital Signs Vital signs: Vital Signs Temp 97.5 F L 06/07/22 07:00 Pulse 60 06/07/22 07:00 Resp 16 06/07/22 07:00 BP 146/70 06/07/22 07:00 Pulse Ox 99 06/07/22 07:00 FiO2 Intake & Output 06/06/22 06/07/22 06/07/22 18:59 06:59 18:59 Intake Total 680 118 Output Total 1120 550 Balance -440 -550 118 Weight 100.698 kg Intake: IV 500 Oral 180 118 Output: Urine 1100 550 Estimated Blood Loss 20 Other: Voiding Method Self-Catheterization Self-Catheterization Self-Catheterization # Voids 1 1 - Labs CBC & Chem 7: 06/07/22 04:40 06/07/22 04:40 Labs: Abnormal Lab Results - Last 24 Hours (Table) 06/07/22 06/07/22 Range/Units 04:40 04:40 WBC 11.72 H (4.50-10.00) X 10*3/uL RBC 3.53 L (4.40-5.60) X 10*6/uL Hgb 9.7 L (13.0-17.0) g/dL Hct 30.9 L (39.6-50.0) % MCHC 31.4 L (32.0-37.0) g/dL Carbon Dioxide 28.5 H (20.0-27.5) mmol/L Anion Gap 6.50 L (10.00-18.00) mmol/L Glucose 214 H (70-110) mg/dL Calcium 8.2 L (8.7-10.3) mg/dL Total Bilirubin <0.15 L (0.30-1.20) mg/dL Total Protein 5.5 L (6.2-8.2) g/dL Albumin 2.5 L (3.8-4.9) g/dL Albumin/Globulin Ratio 0.83 L (1.60-3.17) g/dL Microbiology - Last 24 Hours (Table) 06/05/22 05:34 Blood Culture - Preliminary Blood No Growth after 48 hours
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
[2022-06-07] MEDS: ALPRAZolam 0.5 MG TAB PO PRN (17:42)
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
[2022-06-08] MEDS: VANCOMYCIN 1,500 MG in SODIUM CHLORIDE 0.9% 500 ML 500 ML IVPB SCH ×2 (01:16→14:28)
[2022-06-08] MEDS: metroNIDAZOLE-NS PMX 500 MG in SALINE 1 100ML.BAG IVPB SCH ×4 (05:25→23:26)
[2022-06-08] MEDS: oxyCODONE-APAP 10-325MG 1 EACH TAB PO PRN ×2 (05:41→18:12)
[2022-06-08] MEDS: ALPRAZolam 0.5 MG TAB PO PRN ×3 (05:41→23:46)
[2022-06-08 06:58] LABS: African American GFR (CKD) >90 (>60 ml/min/1.73 sqM); Anion Gap 6 mmol/L; Blood Urea Nitrogen 14 mg/dL (9-20); Carbon Dioxide 31 mmol/L (22-30); Chloride 102 mmol/L (98-107); Glucose 133 mg/dL (74-99); Magnesium 1.9 mg/dL (1.6-2.3); Non-African American GFR(CKD) >90 (>60 ml/min/1.73 sqM); Potassium 3.7 mmol/L (3.5-5.1); Sodium 139 mmol/L (137-145)
[2022-06-08] MEDS: HEPARIN SODIUM,PORCINE/PF 5,000 UNIT/0.5 ML SYRINGE SQ SCH ×3 (08:13→23:26)
[2022-06-08] MEDS: CEFEPIME 2 GM in SODIUM CHLORIDE 0.9% 100 ML IVPB SCH ×3 (08:13→23:27)
[2022-06-08] MEDS: SODIUM CHLORIDE 0.9% 1,000 ML IV SCH (08:13)
--- NOTE | 2022-06-08 09:43 | P.PN ---
Subjective Progress Note Date: 06/08/22 Principal diagnosis: Sacral decubitus ulcer Patient says he did not sleep well last night. He says his IV was giving him trouble. Apparently there was some discussion of possible discharge yesterday but final plans were not arranged. Complains of mild soreness. No fevers. Objective - Vital Signs Vital signs: Vital Signs Temp 97.3 F L 06/08/22 07:00 Pulse 67 06/08/22 07:00 Resp 18 06/08/22 07:00 BP 132/64 06/08/22 07:00 Pulse Ox 100 06/08/22 07:00 FiO2 Intake & Output 06/07/22 06/08/22 06/08/22 18:59 06:59 18:59 Intake Total 118 240 Balance 118 240 Weight 100.698 kg Intake: Oral 118 240 Other: Voiding Method Self-Catheterization Self-Catheterization # Voids 2 1 0 - Exam Abdomen: Soft, nontender, nondistended Sacral decubitus dressings in place - Labs CBC & Chem 7: 06/07/22 04:40 06/08/22 06:22 Labs: Abnormal Lab Results - Last 24 Hours (Table) 06/08/22 Range/Units 06:22 Carbon Dioxide 31 H (22-30) mmol/L Creatinine 0.57 L (0.66-1.25) mg/dL Glucose 133 H (74-99) mg/dL Calcium 8.0 L (8.4-10.2) mg/dL Microbiology - Last 24 Hours (Table) 06/07/22 12:00 Gram Stain - Preliminary Buttock Wound Culture - Preliminary 06/05/22 05:34 Blood Culture - Preliminary Blood No Growth after 72 hours 06/07/22 12:00 Anaerobic Culture - Preliminary Coccyx Assessment and Plan (1) Sacral decubitus ulcer, stage IV Narrative/Plan: 66-year-old male with recent debridement for stage IV sacral ulcer. Continue local wound care. Continue antibiotics per infectious disease. Apparently plans for possible diverting ostomy next week. Continue offloading and protein intake. Current Visit: Yes Status: Acute Code(s): L89.154 - PRESSURE ULCER OF SACRAL REGION, STAGE 4 SNOMED Code(s): 81510548011859
[2022-06-08 10:56] LABS: HGB 9.2 g/dL (13.0-17.0); MCH 27.6 pg (27.0-32.0); MCHC 30.7 g/dL (32.0-37.0); MCV 90.1 fL (80.0-97.0); Mean Platelet Volume 10.8 fL (9.5-12.2); NRBC Per 100 WBC 0 /100 WBCS (0.0-0.0); Platelet Count 283 X 10*3/uL (140-440); RBC 3.33 X 10*6/uL (4.40-5.60); RDW 13.9 % (11.5-14.5); WBC 13.08 X 10*3/uL (4.50-10.00)
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
[2022-06-09] MEDS: NON FORMULARY DRUG (Morphine Pain Pump 1 DOSE) IV SCH (01:23)
[2022-06-09] MEDS: VANCOMYCIN 1,500 MG in SODIUM CHLORIDE 0.9% 500 ML 500 ML IVPB SCH (01:24)
[2022-06-09] MEDS: metroNIDAZOLE-NS PMX 500 MG in SALINE 1 100ML.BAG IVPB SCH ×4 (05:06→23:50)
[2022-06-09 06:39] LABS: African American GFR (CKD) >90 (>60 ml/min/1.73 sqM); Anion Gap 7 mmol/L; Blood Urea Nitrogen 13 mg/dL (9-20); Carbon Dioxide 27 mmol/L (22-30); Chloride 102 mmol/L (98-107); Glucose 139 mg/dL (74-99); Non-African American GFR(CKD) >90 (>60 ml/min/1.73 sqM); Potassium 3.5 mmol/L (3.5-5.1); Sodium 136 mmol/L (137-145)
[2022-06-09] MEDS: CEFEPIME 2 GM in SODIUM CHLORIDE 0.9% 100 ML IVPB SCH ×3 (08:09→23:50)
[2022-06-09] MEDS: HEPARIN SODIUM,PORCINE/PF 5,000 UNIT/0.5 ML SYRINGE SQ SCH ×3 (08:09→23:51)
--- NOTE | 2022-06-09 09:09 | P.PN ---
Subjective Progress Note Date: 06/09/22 Principal diagnosis: Sacral decubitus ulcer Patient says he is doing better today. Less fatigue. No significant pain at this time. He says he is having difficulty offloading and turning onto his side without significant assistance. Objective - Vital Signs Vital signs: Vital Signs Temp 97.3 F L 06/09/22 08:00 Pulse 64 06/09/22 08:00 Resp 18 06/09/22 08:00 BP 153/73 06/09/22 08:00 Pulse Ox 95 06/09/22 08:00 FiO2 Intake & Output 06/08/22 06/09/22 06/09/22 18:59 06:59 18:59 Intake Total 480 Output Total 450 0 1000 Balance 30 0 -1000 Intake: Oral 480 Output: Urine 450 1000 Stool 0 Emesis 0 Other: Voiding Method Self-Catheterization Self-Catheterization # Voids 1 - Exam Abdomen: Soft, nontender, nondistended Sacral decubitus dressings in place - Labs CBC & Chem 7: 06/08/22 06:22 06/09/22 05:36 Labs: Abnormal Lab Results - Last 24 Hours (Table) 06/08/22 06/09/22 Range/Units 06:22 05:36 WBC 13.08 H (4.50-10.00) X 10*3/uL RBC 3.33 L (4.40-5.60) X 10*6/uL Hgb 9.2 L (13.0-17.0) g/dL Hct 30.0 L (39.6-50.0) % MCHC 30.7 L (32.0-37.0) g/dL Sodium 136 L (137-145) mmol/L Creatinine 0.55 L (0.66-1.25) mg/dL Glucose 139 H (74-99) mg/dL Calcium 8.0 L (8.4-10.2) mg/dL Microbiology - Last 24 Hours (Table) 06/05/22 05:34 Blood Culture - Preliminary Blood No Growth after 96 hours 06/07/22 12:00 Gram Stain - Preliminary Buttock Wound Culture - Preliminary Gram Neg Bacilli Jennifer albicans Assessment and Plan (1) Sacral decubitus ulcer, stage IV Narrative/Plan: Patient doing about the same. Continue local wound care and antibiotics. Await final cultures. No further surgical plans. We'll sign off. Please call if needed. Current Visit: Yes Status: Acute Code(s): L89.154 - PRESSURE ULCER OF SACRAL REGION, STAGE 4 SNOMED Code(s): 20006409829095
[2022-06-09 09:18] LABS: HCT 32.4 % (39.6-50.0); MCH 27.3 pg (27.0-32.0); MCHC 30.9 g/dL (32.0-37.0); MCV 88.5 fL (80.0-97.0); Mean Platelet Volume 10.7 fL (9.5-12.2); NRBC Per 100 WBC 0 /100 WBCS (0.0-0.0); Platelet Count 261 X 10*3/uL (140-440); RBC 3.66 X 10*6/uL (4.40-5.60); RDW 14.2 % (11.5-14.5); WBC 10.79 X 10*3/uL (4.50-10.00)
[2022-06-09] MEDS: oxyCODONE-APAP 10-325MG 1 EACH TAB PO PRN (11:52)
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
[2022-06-09] MEDS: ALPRAZolam 0.5 MG TAB PO PRN (16:28)
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
[2022-06-10] MEDS: ALPRAZolam 0.5 MG TAB PO PRN ×3 (00:06→23:55)
[2022-06-10] MEDS: NON FORMULARY DRUG (Morphine Pain Pump 1 DOSE) IV SCH (02:14)
[2022-06-10] MEDS: metroNIDAZOLE-NS PMX 500 MG in SALINE 1 100ML.BAG IVPB SCH ×4 (05:57→23:54)
[2022-06-10] MEDS: HEPARIN SODIUM,PORCINE/PF 5,000 UNIT/0.5 ML SYRINGE SQ SCH ×3 (08:29→23:31)
[2022-06-10] MEDS: CEFEPIME 2 GM in SODIUM CHLORIDE 0.9% 100 ML IVPB SCH ×2 (08:29→17:51)
[2022-06-10] MEDS: oxyCODONE-APAP 10-325MG 1 EACH TAB PO PRN ×2 (11:00→23:54)
[2022-06-10 11:56] LABS: African American GFR (CKD) >90 (>60 ml/min/1.73 sqM); Anion Gap 5 mmol/L; Blood Urea Nitrogen 12 mg/dL (9-20); Calcium 8.2 mg/dL (8.4-10.2); Carbon Dioxide 34 mmol/L (22-30); Chloride 97 mmol/L (98-107); Glucose 131 mg/dL (74-99); Non-African American GFR(CKD) >90 (>60 ml/min/1.73 sqM); Potassium 4.1 mmol/L (3.5-5.1); Sodium 136 mmol/L (137-145)
[2022-06-10] MEDS ORDERED: VANCOMYCIN IV PER PHARMACY 1 EACH MISC MISCELLANE PRN (12:58)
[2022-06-10] MEDS ORDERED: VANCOMYCIN TROUGH DUE 1 EACH MISC MISCELLANE ONE (13:00)
--- NOTE | 2022-06-10 13:13 | US ---
EXAMINATION TYPE: US scrotum with doppler. Grayscale and color Doppler Duplex imaging performed of t he scrotum. DATE OF EXAM: 06/10/2022 COMPARISON: NONE CLINICAL HISTORY: scrotal swelling, no pain. EXAM MEASUREMENTS: TESTICLES: Right Testicle: 4.2 x 2.2 x 3.0 cm Skin thickening. Left Testicle: 3.4 x 21 x 3.0 cm EPIDIDYMIS HEAD: Right Epididymis: 1.0 x 1.2 x .8 cm anechoic area seen.8 x .4 x .6 cm. Left Epididymis: .6 x .5 x .6 cm Doppler performed to assess for testicular vascularity; good bilateral color flow and waveforms are s een. There is no evidence of testicular torsion. Presence of hydroceles: No Presence of varicoceles: No IMPRESSION: Diffuse skin thickening\edema correlate for infectious etiology. Small 8 mm epididymal he ad cyst.
[2022-06-10] MEDS: VANCOMYCIN 1,500 MG in SODIUM CHLORIDE 0.9% 500 ML 500 ML IVPB SCH (14:35)
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
[2022-06-10 18:17] LABS: HCT 33.3 % (39.6-50.0); HGB 10.1 g/dL (13.0-17.0); MCH 27.4 pg (27.0-32.0); MCHC 30.3 g/dL (32.0-37.0); MCV 90.2 fL (80.0-97.0); Mean Platelet Volume 10.4 fL (9.5-12.2); NRBC Per 100 WBC 0 /100 WBCS (0.0-0.0); Platelet Count 222 X 10*3/uL (140-440); RBC 3.69 X 10*6/uL (4.40-5.60); RDW 14.4 % (11.5-14.5); WBC 11.43 X 10*3/uL (4.50-10.00)
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
[2022-06-11] MEDS: NON FORMULARY DRUG (Morphine Pain Pump 1 DOSE) IV SCH ×2 (00:17→23:34)
[2022-06-11] MEDS: CEFEPIME 2 GM in SODIUM CHLORIDE 0.9% 100 ML IVPB SCH ×2 (02:02→08:51)
[2022-06-11] MEDS: VANCOMYCIN 1,500 MG in SODIUM CHLORIDE 0.9% 500 ML 500 ML IVPB SCH (04:04)
[2022-06-11] MEDS: metroNIDAZOLE-NS PMX 500 MG in SALINE 1 100ML.BAG IVPB SCH ×2 (06:13→12:42)
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
[2022-06-11] MEDS: HEPARIN SODIUM,PORCINE/PF 5,000 UNIT/0.5 ML SYRINGE SQ SCH ×3 (08:52→23:34)
[2022-06-11 09:54] LABS: HCT 33.8 % (39.0-53.0); HGB 10.9 gm/dL (13.0-17.5); MCH 28.6 pg (25.0-35.0); MCHC 32.3 g/dL (31.0-37.0); MCV 88.6 fL (80.0-100.0); Mean Platelet Volume 7.6; Platelet Count 343 k/uL (150-450); RBC 3.81 m/uL (4.30-5.90); RDW 14.5 % (11.5-15.5); WBC 10.7 k/uL (3.8-10.6)
[2022-06-11] MEDS ORDERED: bisacodyL 5 MG TABLET.DR PO STA (10:04)
[2022-06-11 10:06] LABS: African American GFR (CKD) >90 (>60 ml/min/1.73 sqM); Anion Gap 4 mmol/L; Blood Urea Nitrogen 11 mg/dL (9-20); Calcium 8.3 mg/dL (8.4-10.2); Carbon Dioxide 35 mmol/L (22-30); Chloride 97 mmol/L (98-107); Glucose 131 mg/dL (74-99); Non-African American GFR(CKD) >90 (>60 ml/min/1.73 sqM); Potassium 3.9 mmol/L (3.5-5.1); Sodium 136 mmol/L (137-145)
--- NOTE | 2022-06-11 11:01 | XR ---
EXAMINATION TYPE: XR abdomen 1V DATE OF EXAM: 06/11/2022 COMPARISON: NONE HISTORY: Constipation TECHNIQUE: One view abdominal series FINDINGS: The osseous structures are intact. The bowel gas pattern is nonspecific. Lung bases are clear. Surg ical clips right upper quadrant. Postsurgical changes overlying the thoracic spine. Stimulator device seen overlying the left abdomen. Vascular calcification left paraspinal line can be associated with the aorta. Arthropathy of the hips correlate for femoral acetabular impingement. Retained fecal debri s throughout the colon. IMPRESSION: 1. Nonspecific abdomen. No obstruction correlate for constipation. 2. There is a calcification along the left paraspinal line. Ultrasound of the aorta is recommended to exclude aneurysm
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
[2022-06-11] MEDS: AMPICILLIN-SULBACTAM 3 GM in SODIUM CHLORIDE 0.9% 100 ML IVPB SCH ×2 (17:53→23:33)
[2022-06-11 20:20] LABS: Glucose,Whole Blood 125 mg/dL (70-110)
[2022-06-11] MEDS: oxyCODONE-APAP 10-325MG 1 EACH TAB PO PRN (20:37)
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
[2022-06-12] MEDS: AMPICILLIN-SULBACTAM 3 GM in SODIUM CHLORIDE 0.9% 100 ML IVPB SCH ×3 (06:06→17:28)
[2022-06-12] MEDS: HEPARIN SODIUM,PORCINE/PF 5,000 UNIT/0.5 ML SYRINGE SQ SCH ×2 (08:09→17:28)
[2022-06-12] MEDS: oxyCODONE-APAP 10-325MG 1 EACH TAB PO PRN (10:36)
--- NOTE | 2022-06-12 13:22 | P.PN ---
Subjective Progress Note Date: 06/12/22 CHIEF COMPLAINT: Sacral decubitus ulcer HISTORY OF PRESENT ILLNESS: Patient is status post debridement of sacral decubitus ulcer on 06/06/22. Patient has wound VAC in place. On IV antibiotics. Followed by infectious disease. Abdominal x-ray nonspecific abdomen. No obstruction. Correlate for constipation. Afebrile. no new labs PHYSICAL EXAM: VITAL SIGNS: Reviewed. GENERAL: Well-developed in no acute distress. HEENT: No sclera icterus. Extraocular movements grossly intact. Moist buccal mucosa. Head is atraumatic, normocephalic. ABDOMEN: Soft. Nondistended. Nontender. NEUROLOGIC: Alert and oriented. Cranial nerves II through XII grossly intact. ASSESSMENT: 1. Sacral decubitus ulcer status post debridement 2. Possible osteomyelitis 3. Paraplegic PLAN: -Start patient on clear liquid diet in anticipation for diverting colostomy on 06/14/2022 Physician Truck Service Manager note has been reviewed by physician. Signing provider agrees with the documented findings, assessment, and plan of care. Objective - Vital Signs Vital signs: Vital Signs Temp 98.4 F 06/12/22 08:00 Pulse 73 06/12/22 08:00 Resp 16 06/12/22 08:00 BP 142/74 06/12/22 08:00 Pulse Ox 100 06/12/22 08:00 FiO2 Intake & Output 06/11/22 06/12/22 06/12/22 18:59 06:59 18:59 Intake Total 118 Output Total 4247 754 4263 Balance -1082 -350 -1200 Intake: Oral 118 Output: Urine 350 Stool 1200 1200 Other: Voiding Method Self-Catheterization Self-Catheterization Self-Catheterization # Voids 2 - Labs CBC & Chem 7: 06/11/22 09:27 06/11/22 09:27 Labs: Abnormal Lab Results - Last 24 Hours (Table) 06/11/22 Range/Units 20:19 POC Glucose (mg/dL) 125 H (70-110) mg/dL Microbiology - Last 24 Hours (Table) 06/07/22 12:00 Anaerobic Culture - Final Coccyx 06/07/22 12:00 Gram Stain - Final Buttock Wound Culture - Final Acinetobacter kriss/haemol Jennifer albicans Enterococcus faecalis
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
[2022-06-13] MEDS: AMPICILLIN-SULBACTAM 3 GM in SODIUM CHLORIDE 0.9% 100 ML IVPB SCH ×4 (00:30→17:17)
[2022-06-13] MEDS: HEPARIN SODIUM,PORCINE/PF 5,000 UNIT/0.5 ML SYRINGE SQ SCH ×3 (00:31→17:16)
[2022-06-13] MEDS: NON FORMULARY DRUG (Morphine Pain Pump 1 DOSE) IV SCH (02:04)
[2022-06-13] MEDS: ALPRAZolam 0.5 MG TAB PO PRN ×2 (07:59→20:14)
[2022-06-13] MEDS ORDERED: LIDOCAINE 1% (10MG/ML) FOR IV START INTRADERMA PRN (09:18)
[2022-06-13] MEDS: LACTATED RINGERS 1,000 ML IV SCH (09:37)
--- NOTE | 2022-06-13 09:43 | P.PN ---
Subjective Progress Note Date: 06/13/22 CHIEF COMPLAINT: Sacral decubitus ulcer HISTORY OF PRESENT ILLNESS: Patient is status post debridement of sacral decubitus ulcer on 06/06/22. Patient has wound VAC in place. On IV antibiotics. Afebrile. That's for today are pending. PHYSICAL EXAM: VITAL SIGNS: Reviewed. GENERAL: Well-developed in no acute distress. HEENT: No sclera icterus. Extraocular movements grossly intact. Moist buccal m ucosa. Head is atraumatic, normocephalic. ABDOMEN: Soft. Nondistended. Nontender. NEUROLOGIC: Alert and oriented. Cranial nerves II through XII grossly intact. ASSESSMENT: 1. Sacral decubitus ulcer status post debridement 2. Possible osteomyelitis 3. Paraplegic PLAN: -Patient scheduled for a diverting colostomy tomorrow, 06/14/[address] Benitez -Nothing by mouth after midnight -Clear liquid diet today Physician Tightening Machine Operator note has been reviewed by physician. Signing provider agrees with the documented findings, assessment, and plan of care. Objective - Vital Signs Vital signs: Vital Signs Temp 97.9 F 06/13/22 08:00 Pulse 68 06/13/22 08:00 Resp 19 06/13/22 08:31 BP 133/69 06/13/22 08:00 Pulse Ox 95 06/13/22 02:46 FiO2 Intake & Output 06/12/22 06/13/22 06/13/22 18:59 06:59 18:59 Output Total 1200 400 Balance -1200 -400 Output: Urine 400 Stool 1200 Other: Voiding Method Self-Catheterization Self-Catheterization - Labs CBC & Chem 7: 06/11/22 09:27 06/11/22 09:27
[2022-06-13 09:54] LABS: African American GFR (CKD) 119.7 (60.0-200.0); Anion Gap 11.5 mmol/L (10.00-18.00); BUN/Creat Ratio 13.17 Ratio (12.00-20.00); Blood Urea Nitrogen 7.9 mg/dL (9.0-27.0); Calcium 8.5 mg/dL (8.7-10.3); Carbon Dioxide 28.5 mmol/L (20.0-27.5); Non-African American GFR(CKD) 103.3 (60.0-200.0); Potassium 3.8 mmol/L (3.5-5.5)
[2022-06-13 10:34] LABS: Basophils # (A) 0.03 X 10*3/uL (0.00-0.10); Basophils % (A) 0.4 %; Eosinophils # (A) 0.27 X 10*3/uL (0.04-0.35); Eosinophils % (A) 3.7 %; HCT 30.3 % (39.6-50.0); HGB 9.5 g/dL (13.0-17.0); Immature Grans, Automated 1.9 %; Lymphocytes # (A) 1.59 X 10*3/uL (0.90-5.00); Lymphocytes % (A) 21.6 %; MCH 27.6 pg (27.0-32.0); MCHC 31.4 g/dL (32.0-37.0); MCV 88.1 fL (80.0-97.0); Mean Platelet Volume 10.1 fL (9.5-12.2); Monocytes # (A) 0.82 X 10*3/uL (0.20-1.00); Monocytes % (A) 11.1 %; NRBC Per 100 WBC 0 /100 WBCS (0.0-0.0); Neutrophils # (A) 4.52 X 10*3/uL (1.80-7.70); Neutrophils % (A) 61.3 %; Platelet Count 178 X 10*3/uL (140-440); RBC 3.44 X 10*6/uL (4.40-5.60); RDW 14.8 % (11.5-14.5); WBC 7.37 X 10*3/uL (4.50-10.00)
[2022-06-13] MEDS: oxyCODONE-APAP 10-325MG 1 EACH TAB PO PRN (11:39)
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
[2022-06-14] MEDS: NON FORMULARY DRUG (Morphine Pain Pump 1 DOSE) IV SCH (01:21)
[2022-06-14] MEDS: HEPARIN SODIUM,PORCINE/PF 5,000 UNIT/0.5 ML SYRINGE SQ SCH ×4 (01:21→22:53)
[2022-06-14] MEDS: AMPICILLIN-SULBACTAM 3 GM in SODIUM CHLORIDE 0.9% 100 ML IVPB SCH ×5 (01:21→22:53)
[2022-06-14 06:47] LABS: Basophils % (A) 0 %; Eosinophils # (A) 0.3 k/uL (0-0.7); Eosinophils % (A) 5 %; HCT 33.2 % (39.0-53.0); HGB 10.5 gm/dL (13.0-17.5); Lymphocytes # (A) 1.3 k/uL (1.0-4.8); Lymphocytes % (A) 22 %; MCH 27.8 pg (25.0-35.0); MCHC 31.8 g/dL (31.0-37.0); MCV 87.5 fL (80.0-100.0); Mean Platelet Volume 7.8; Monocytes # (A) 0.4 k/uL (0-1.0); Monocytes % (A) 7 %; Neutrophils # (A) 3.8 k/uL (1.3-7.7); Neutrophils % (A) 64 %; Platelet Count 235 k/uL (150-450); RBC 3.79 m/uL (4.30-5.90); RDW 14.6 % (11.5-15.5); WBC 5.9 k/uL (3.8-10.6)
[2022-06-14 06:53] LABS: African American GFR (CKD) >90 (>60 ml/min/1.73 sqM); Blood Urea Nitrogen 6 mg/dL (9-20); Carbon Dioxide 38 mmol/L (22-30); Chloride 97 mmol/L (98-107); Non-African American GFR(CKD) >90 (>60 ml/min/1.73 sqM)
[2022-06-14 06:54] LABS: Anion Gap 1 mmol/L; Calcium 8.4 mg/dL (8.4-10.2); Glucose 110 mg/dL (74-99); Sodium 136 mmol/L (137-145)
[2022-06-14] MEDS ORDERED: ONDANSETRON 4 MG/2 ML VIAL IVP PRN ×2 (07:00→15:43)
[2022-06-14] MEDS ORDERED: HYDROmorphone 0.5 MG/0.5 ML SYRINGE IVP PRN (07:00)
[2022-06-14] MEDS: LACTATED RINGERS 1,000 ML IV SCH (09:30)
[2022-06-14] MEDS: oxyCODONE-APAP 10-325MG 1 EACH TAB PO PRN ×2 (11:52→23:22)
[2022-06-14] MEDS ORDERED: IV FLUID CONTINUATION 1,000 ML IV ONE (14:10)
[2022-06-14] MEDS ORDERED: ONDANSETRON 4 MG/2 ML VIAL IVP ONE (14:15)
[2022-06-14] MEDS ORDERED: DEXAMETHASONE SOD PHOSPHATE 4 MG/ML 1 ML VIAL IVP ONE (14:15)
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
[2022-06-14] MEDS ORDERED: ROCURONIUM 10 MG/ML (5 ML VIAL) IV ONE (14:49)
[2022-06-14] MEDS ORDERED: GLYCOPYRROLATE 0.2 MG/ML 2 ML VIAL ONE (14:49)
[2022-06-14] MEDS ORDERED: LIDOCAINE 2% INJ 20 MG/ML (2 ML VIAL) ONE (14:49)
[2022-06-14] MEDS ORDERED: PROPOFOL 10 MG/ML 20 ML VIAL IV ONE (14:49)
[2022-06-14] MEDS ORDERED: NEOSTIGMINE 1 MG/ML 10 ML VIAL ONE (14:49)
[2022-06-14] MEDS ORDERED: HEPARIN SODIUM,PORCINE 5,000 UNIT/ML 1 ML VIAL ONE (14:49)
[2022-06-14] MEDS ORDERED: fentaNYL (PF) 50 MCG/ML 2 ML AMP ONE (14:49)
[2022-06-14] MEDS ORDERED: ceFAZolin 1,000 MG VIAL IVPB ONE (15:00)
[2022-06-14] MEDS ORDERED: NALOXONE 0.4 MG/ML 1 ML VIAL IV PRN (15:43)
[2022-06-14] MEDS ORDERED: LACTATED RINGERS 1,000 ML IV ONE (15:43)
--- NOTE | 2022-06-14 15:43 | P.OP ---
Date of Procedure: 06/14/22 Preoperative Diagnosis: Sacral decubitus ulcer Postoperative Diagnosis: Sacral decubitus ulcer Constipation Paraplegia Procedure(s) Performed: Diverting colostomy Anesthesia: DINA Surgeon: Jose Armando Benitez Estimated Blood Loss (ml): 5 Pathology: none sent Condition: stable Disposition: PACU Description of Procedure: The patient's placed on the operative table in the supine position. He received general anesthesia. His abdomen was prepped and draped usual fashion. The abdomen was entered through a midline incision. Using left cautery subcutaneous tissue divided. And then the abdominal wall was divided. The fascia was divided midline. And then the peritoneal cavity was entered. The patient had a redundant sigmoid colon. The colon was chosen transected near the rectosigmoid area. Using the GI stapler the colon was then transected. The mesentery is then divided using the Enseal device. Once the colon mesentery was divided a suitable length of colon was found to reach the left upper quadrant. The colostomy site was then created through the rectus muscle in the left upper quadrant. The colostomy was then created by bringing the colon up through the colostomy site. The abdomen was inspected there is no bleeding seen. The fascia was then closed in looped #1. Skin was closed marilyn. The colostomy then matured with 3-0 Vicryl suture. Sterile dressing applied. Patient tolerated the she will was sent to recovery room in stable condition.
[2022-06-14] MEDS: HYDROmorphone 1 MG/ML 1 ML SYRINGE IVP PRN (18:54)
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
[2022-06-14] MEDS: LACTULOSE 20 GM/30 ML CUP PO SCH (22:47)
[2022-06-14] MEDS ORDERED: LACTULOSE 20 GM/30 ML CUP PO ONE (23:01)
[2022-06-14] MEDS: ALPRAZolam 0.5 MG TAB PO PRN (23:22)
[2022-06-15] MEDS: ALPRAZolam 0.5 MG TAB PO PRN (05:14)
[2022-06-15] MEDS: AMPICILLIN-SULBACTAM 3 GM in SODIUM CHLORIDE 0.9% 100 ML IVPB SCH ×3 (05:14→17:21)
[2022-06-15 08:34] LABS: HCT 34.2 % (39.0-53.0); HGB 11.1 gm/dL (13.0-17.5); MCH 28.6 pg (25.0-35.0); MCHC 32.5 g/dL (31.0-37.0); MCV 88.1 fL (80.0-100.0); Mean Platelet Volume 8.2; Platelet Count 236 k/uL (150-450); RBC 3.88 m/uL (4.30-5.90); RDW 14.5 % (11.5-15.5); WBC 10.3 k/uL (3.8-10.6)
[2022-06-15 08:46] LABS: African American GFR (CKD) >90 (>60 ml/min/1.73 sqM); Blood Urea Nitrogen 8 mg/dL (9-20); Calcium 8.4 mg/dL (8.4-10.2); Chloride 94 mmol/L (98-107); Glucose 182 mg/dL (74-99); Non-African American GFR(CKD) >90 (>60 ml/min/1.73 sqM); Potassium 4.2 mmol/L (3.5-5.1); Sodium 136 mmol/L (137-145)
[2022-06-15 08:53] LABS: Anion Gap 7 mmol/L; Carbon Dioxide 35 mmol/L (22-30)
[2022-06-15] MEDS: NON FORMULARY DRUG (Morphine Pain Pump 1 DOSE) IV SCH (09:25)
--- NOTE | 2022-06-15 09:30 | P.PN ---
Progress Note - Text Progress Note Date: 06/15/22 The patient some complaints of incisional pain. His colostomy is pink. There is no significant output. On exam vital signs are stable. Abdomen soft. Incisions clean dry tach. Status post diverting colostomy. Patient has issues with chronic constipation. We will add lactulose twice a day. We plan on doing a wound debridement on Friday of the sacral decubitus ulcer
[2022-06-15] MEDS: ENOXAPARIN 40 MG/0.4 ML SYRINGE SQ SCH (09:33)
[2022-06-15] MEDS: LACTULOSE 20 GM/30 ML CUP PO SCH ×2 (09:33→20:43)
[2022-06-15] MEDS: oxyCODONE-APAP 10-325MG 1 EACH TAB PO PRN (09:40)
[2022-06-15] MEDS: HYDROmorphone 1 MG/ML 1 ML SYRINGE IVP PRN ×3 (11:43→21:36)
[2022-06-15] MEDS ORDERED: HYDROmorphone 1 MG/ML 1 ML SYRINGE IVP STA (13:31)
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
[2022-06-16] MEDS: AMPICILLIN-SULBACTAM 3 GM in SODIUM CHLORIDE 0.9% 100 ML IVPB SCH ×4 (00:37→17:12)
[2022-06-16] MEDS: NON FORMULARY DRUG (Morphine Pain Pump 1 DOSE) IV SCH (00:37)
[2022-06-16] MEDS: ENOXAPARIN 40 MG/0.4 ML SYRINGE SQ SCH (10:03)
[2022-06-16] MEDS: LACTULOSE 20 GM/30 ML CUP PO SCH ×2 (10:04→20:44)
[2022-06-16] MEDS: oxyCODONE-APAP 10-325MG 1 EACH TAB PO PRN ×2 (10:06→19:52)
[2022-06-16] MEDS ORDERED: CALCIUM CARBONATE 500 MG CHEWABLE PO PRN (10:20)
[2022-06-16] MEDS ORDERED: PANTOPRAZOLE 40 MG/10 ML VIAL IVP SCH (10:45)
--- NOTE | 2022-06-16 11:10 | P.PN ---
Progress Note - Text Progress Note Date: 06/16/22 Patient's complaints of nausea and abdominal distention. On exam vital signs are stable. Abdomen soft. There is some mild tenderness. Abdomen is mildly distended. Postoperative ileus. Patient will have nasogastric tube placed.
[2022-06-16] MEDS: PANTOPRAZOLE 40 MG/10 ML VIAL IVP SCH (12:11)
[2022-06-16] MEDS: HYDROmorphone 1 MG/ML 1 ML SYRINGE IVP PRN ×2 (12:23→17:10)
--- NOTE | 2022-06-16 12:50 | XR ---
EXAMINATION TYPE: XR chest 1V portable DATE OF EXAM: 06/16/2022 CLINICAL HISTORY: NG tube placement. TECHNIQUE: Single AP portable upright view of the chest is attempted. COMPARISON: Chest x-ray from August 12, 2012 FINDINGS: Nasogastric tube projects below diaphragm. Only the lower lungs are seen which is clear. C holecystectomy clips are now present. Visualized lungs show nonspecific likely nonobstructive bowel g as pattern. Trace free air lateral aspect right hemidiaphragm is suspected. Correlate clinically. Ove rlying surgical change in the midline of the chest is again seen. IMPRESSION: As above. A Yellow level critical message alert has been initiated for Jose Armando Benitez via the [employer] Critical Results System on 06/16/2022 12:48 PM. This message alert has been sent to Jose Armando Benitez via the preferences provided by the clinician for the receipt of Radiology Critical Findings. Message ID [id number].
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
[2022-06-16] MEDS ORDERED: hydrALAZINE HCL 25 MG TAB PO PRN (13:47)
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
[2022-06-17] MEDS: HYDROmorphone 1 MG/ML 1 ML SYRINGE IVP PRN ×2 (00:02→08:33)
[2022-06-17] MEDS: NON FORMULARY DRUG (Morphine Pain Pump 1 DOSE) IV SCH (00:37)
[2022-06-17] MEDS: oxyCODONE-APAP 10-325MG 1 EACH TAB PO PRN (01:48)
[2022-06-17] MEDS: AMPICILLIN-SULBACTAM 3 GM in SODIUM CHLORIDE 0.9% 100 ML IVPB SCH ×6 (05:47→23:05)
[2022-06-17] MEDS: ENOXAPARIN 40 MG/0.4 ML SYRINGE SQ SCH ×2 (08:29→08:40)
[2022-06-17] MEDS: PANTOPRAZOLE 40 MG/10 ML VIAL IVP SCH (08:29)
[2022-06-17] MEDS: LACTULOSE 20 GM/30 ML CUP PO SCH ×3 (08:29→20:57)
--- NOTE | 2022-06-17 09:16 | IR ---
PICC LINE PLACEMENT: HISTORY: Infection requiring long-term antibiotic therapy PROCEDURE: Ultrasound and fluoroscopic guidance of PICC line placement. COMPLICATIONS: None ANESTHESIA: 1. 1% Lidocaine locally. FINDINGS/TECHNIQUE: The procedure was explained to the patient. The risks, complications, benefits and alternatives were discussed and any questions were answered. Informed consent was obtained. The patient was placed supine on the fluoroscopic table and prepped and draped in the usual sterile fash ion. Utilizing a 21 gauge needle and sonographic and fluoroscopic guidance, access in the left basi lic vein was achieved and there is placement of a 0.018 guidewire. The vein is patent. A 4-F sheath was placed over the guidewire. The guidewire and dilator were removed and a 4-F. PICC line was plac ed through the sheath with the tip at the level of the SVC. The sheath was removed, the catheter was flushed and sutured into position. The patient was stable throughout the procedure and remained sta ble upon discharge from the Department of Radiology. The vein puncture was patent under ultrasound. A youngblood scale image was obtained to document patency of the vein punctured. All elements of the maximal barrier technique were utilized. FLUOROSCOPY TIME: DAP 0.105Gy cm2 IMPRESSION: Successful PICC line placement under ultrasound and fluoroscopic guidance.
[2022-06-17] MEDS ORDERED: LACTATED RINGERS 500 ML IV ONE (09:30)
[2022-06-17] MEDS ORDERED: DEXAMETHASONE SOD PHOSPHATE 4 MG/ML 1 ML VIAL IVP ONE (10:04)
[2022-06-17] MEDS ORDERED: LIDOCAINE 2% INJ 20 MG/ML (2 ML VIAL) ONE (10:35)
[2022-06-17] MEDS ORDERED: MIDAZOLAM 2 MG/2 ML VIAL ONE (10:35)
[2022-06-17] MEDS ORDERED: PROPOFOL 10 MG/ML 20 ML VIAL IV ONE (10:35)
[2022-06-17 10:46] LABS: HCT 33.5 % (39.6-50.0); HGB 10.5 g/dL (13.0-17.0); MCH 28.5 pg (27.0-32.0); MCHC 31.3 g/dL (32.0-37.0); Mean Platelet Volume 10.5 fL (9.5-12.2); NRBC Per 100 WBC 0 /100 WBCS (0.0-0.0); Platelet Count 180 X 10*3/uL (140-440); RBC 3.68 X 10*6/uL (4.40-5.60); RDW 15.3 % (11.5-14.5); WBC 8.33 X 10*3/uL (4.50-10.00)
[2022-06-17 10:55] LABS: African American GFR (CKD) 106.4 (60.0-200.0); Anion Gap 7.2 mmol/L (10.00-18.00); BUN/Creat Ratio 10.88 Ratio (12.00-20.00); Blood Urea Nitrogen 8.7 mg/dL (9.0-27.0); Carbon Dioxide 35.8 mmol/L (20.0-27.5); Magnesium 2.2 mg/dL (1.5-2.4); Non-African American GFR(CKD) 91.8 (60.0-200.0); Potassium 4.6 mmol/L (3.5-5.5)
[2022-06-17] MEDS ORDERED: LACTATED RINGERS 1,000 ML IV ONE (11:13)
--- NOTE | 2022-06-17 11:25 | P.OP ---
Date of Procedure: 06/17/22 Preoperative Diagnosis: Sacral decubitus ulcer Postoperative Diagnosis: Sacral decubitus ulcer Procedure(s) Performed: Debridement of sacral decubitus ulcer Anesthesia: DINA Surgeon: Jose Armando Benitez Estimated Blood Loss (ml): 25 Pathology: other (Wound culture) Condition: stable Disposition: PACU Description of Procedure: The patient's placed on the operative table in the supine position. He received IV sedation. His then rotated onto his right side. The patient had a sacral decubital ulcer. The ulcer measured approximately 25 x 25 x 5 cm. Using a 15 blade the necrotic wound was debrided.Was achieved using electrocautery. The wound was then packed with wet-to-dry Kerlix. Patient top she will was sent to recovery room in stable condition.
[2022-06-17] MEDS: METOCLOPRAMIDE 5 MG/ML 2 ML VIAL IVP SCH ×3 (15:21→23:06)
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
[2022-06-18] MEDS: NON FORMULARY DRUG (Morphine Pain Pump 1 DOSE) IV SCH (01:46)
[2022-06-18] MEDS: METOCLOPRAMIDE 5 MG/ML 2 ML VIAL IVP SCH ×4 (06:16→22:56)
[2022-06-18] MEDS: AMPICILLIN-SULBACTAM 3 GM in SODIUM CHLORIDE 0.9% 100 ML IVPB SCH ×4 (06:17→22:56)
[2022-06-18] MEDS: HYDROmorphone 1 MG/ML 1 ML SYRINGE IVP PRN ×3 (06:19→13:44)
[2022-06-18] MEDS: PANTOPRAZOLE 40 MG/10 ML VIAL IVP SCH (09:52)
[2022-06-18] MEDS: ENOXAPARIN 40 MG/0.4 ML SYRINGE SQ SCH (09:53)
[2022-06-18] MEDS: LACTULOSE 20 GM/30 ML CUP PO SCH ×2 (09:54→21:09)
--- NOTE | 2022-06-18 11:57 | P.PN ---
Subjective Progress Note Date: 06/18/22 CHIEF COMPLAINT: Sacral decubitus ulcer HISTORY OF PRESENT ILLNESS: Patient is status post diverting colostomy, postop day #4. Patient is status post debridement of sacral decubitus ulcer on 06/06/22 and 06/17/2022. Patient has developed a postoperative ileus. Patient reports pain is controlled. He denies any nausea. NG tube with 400 mL output. Ostomy has not started to function yet. Afebrile. WBC is 8.33 hgb 10.5 from yesterday PHYSICAL EXAM: VITAL SIGNS: Reviewed. GENERAL: Well-developed in no acute distress. HEENT: No sclera icterus. Extraocular movements grossly intact. Moist buccal mucosa. Head is atraumatic, normocephalic. ABDOMEN: Soft. Mildly distended. Incisional dressing clean dry and intact ostomy on the left. Stoma beefy red. No stool or air. NEUROLOGIC: Alert and oriented. Cranial nerves II through XII grossly intact. ASSESSMENT: 1. Sacral decubitus ulcer status post debridement x 2 2. Status post diverting colostomy on 06/14/22 3. Postoperative ileus 4. Possible osteomyelitis 5. Paraplegic PLAN: -Continue NG tube for decompression -Continue Reglan -Okay to replace wound VAC -Consult dietitian for TPN for nutrition support -GI prophylaxis Protonix and DVT prophylaxis Lovenox Physician [employer]ane [employer]er note has been reviewed by physician. Signing provider agrees with the documented findings, assessment, and plan of care. Objective - Vital Signs Vital signs: Vital Signs Temp 97.5 F L 06/18/22 08:04 Pulse 58 L 06/18/22 08:04 Resp 19 06/18/22 08:04 BP 165/73 06/18/22 08:04 Pulse Ox 98 06/18/22 08:04 FiO2 Intake & Output 06/17/22 06/18/22 06/18/22 18:59 06:59 18:59 Intake Total 300 Output Total 580 300 0 Balance -280 -300 0 Intake: IV 300 Output: Drainage 0 0 Abdomen 0 0 Urine 575 300 Estimated Blood Loss 5 Other: Voiding Method Indwelling Catheter Indwelling Catheter Indwelling Catheter - Labs CBC & Chem 7: 06/17/22 07:03 06/17/22 07:03 Labs: Microbiology - Last 24 Hours (Table) 06/17/22 11:12 Anaerobic Culture - Preliminary Other - Other 06/17/22 11:12 Tissue Culture - Preliminary Other - Other
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
[2022-06-18 13:50] LABS: ALT 16 U/L (4-49); AST 22 U/L (17-59); African American GFR (CKD) >90 (>60 ml/min/1.73 sqM); Albumin 2.9 g/dL (3.5-5.0); Alkaline Phosphatase 76 U/L (38-126); Anion Gap 4 mmol/L; Blood Urea Nitrogen 14 mg/dL (9-20); Calcium 8.8 mg/dL (8.4-10.2); Carbon Dioxide 39 mmol/L (22-30); Chloride 96 mmol/L (98-107); Glucose 98 mg/dL (74-99); Non-African American GFR(CKD) >90 (>60 ml/min/1.73 sqM); Phosphorus 3.2 mg/dL (2.5-4.5); Sodium 139 mmol/L (137-145); Total Bilirubin 0.6 mg/dL (0.2-1.3); Total Protein 5.9 g/dL (6.3-8.2)
[2022-06-18 14:00] LABS: Ionized Calcium 4.9 mg/dL (4.5-5.3)
[2022-06-18] MEDS ORDERED: MVI, ADULT NO.4 WITH VIT K 10 ML, TRACE (CONC-1ML/DOSE) 1 ML in AMINO ACID 5%-D20W+LYTE... IV SCH ×3 (15:30)
[2022-06-18] MEDS: ALPRAZolam 0.5 MG TAB PO PRN (17:14)
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
[2022-06-19] MEDS: AMPICILLIN-SULBACTAM 3 GM in SODIUM CHLORIDE 0.9% 100 ML IVPB SCH ×4 (05:07→23:48)
[2022-06-19] MEDS: METOCLOPRAMIDE 5 MG/ML 2 ML VIAL IVP SCH ×4 (05:07→23:47)
[2022-06-19] MEDS: HYDROmorphone 1 MG/ML 1 ML SYRINGE IVP PRN (05:54)
[2022-06-19] MEDS: ALPRAZolam 0.5 MG TAB PO PRN ×2 (05:54→12:54)
[2022-06-19] MEDS: NON FORMULARY DRUG (Morphine Pain Pump 1 DOSE) IV SCH (09:09)
[2022-06-19] MEDS: LACTULOSE 20 GM/30 ML CUP PO SCH ×3 (09:13→20:24)
[2022-06-19] MEDS: ENOXAPARIN 40 MG/0.4 ML SYRINGE SQ SCH (09:13)
[2022-06-19] MEDS: PANTOPRAZOLE 40 MG/10 ML VIAL IVP SCH (09:13)
[2022-06-19 09:18] LABS: Basophils % (A) 0 %; Eosinophils # (A) 0.1 k/uL (0-0.7); Eosinophils % (A) 1 %; HCT 31.9 % (39.0-53.0); HGB 10.2 gm/dL (13.0-17.5); Lymphocytes # (A) 1.2 k/uL (1.0-4.8); Lymphocytes % (A) 18 %; MCH 27.9 pg (25.0-35.0); MCV 87.2 fL (80.0-100.0); Mean Platelet Volume 8.5; Monocytes # (A) 0.4 k/uL (0-1.0); Monocytes % (A) 5 %; Neutrophils # (A) 5.3 k/uL (1.3-7.7); Neutrophils % (A) 75 %; Platelet Count 204 k/uL (150-450); RBC 3.65 m/uL (4.30-5.90); RDW 15.2 % (11.5-15.5)
[2022-06-19 09:46] LABS: African American GFR (CKD) >90 (>60 ml/min/1.73 sqM); Anion Gap 3 mmol/L; Blood Urea Nitrogen 14 mg/dL (9-20); Calcium 8.3 mg/dL (8.4-10.2); Carbon Dioxide 39 mmol/L (22-30); Chloride 96 mmol/L (98-107); Glucose 117 mg/dL (74-99); Non-African American GFR(CKD) >90 (>60 ml/min/1.73 sqM); Phosphorus 3.3 mg/dL (2.5-4.5); Potassium 3.7 mmol/L (3.5-5.1); Sodium 138 mmol/L (137-145)
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
[2022-06-19] MEDS: oxyCODONE-APAP 10-325MG 1 EACH TAB PO PRN ×2 (14:23→23:52)
--- NOTE | 2022-06-19 14:50 | P.PN ---
Subjective Progress Note Date: 06/19/22 CHIEF COMPLAINT: Sacral decubitus ulcer HISTORY OF PRESENT ILLNESS: Patient is status post diverting colostomy, postop day #5. Patient is status post debridement of sacral decubitus ulcer on 06/06/22 and 06/17/2022. Patient has developed a postoperative ileus. Patient reports pain is controlled. He occasionally has nausea. NG tube output only 100. He has been started on TPN for nutrition support. Ostomy has not started to function yet. Afebrile. WBC 7.0 Hgb 10.2 platelets 204 sodium is 138 potassium 3.7 creatinine 0.66. Patient does have wound VAC in place. Patient seen and examined with Dr. hanson PHYSICAL EXAM: VITAL SIGNS: Reviewed. GENERAL: Well-developed in no acute distress. HEENT: No sclera icterus. Extraocular movements grossly intact. Moist buccal mucosa. Head is atraumatic, normocephalic. ABDOMEN: Soft. Mildly distended. Incisional dressing clean dry and intact. o stomy on the left. Stoma beefy red. No stool or air. NEUROLOGIC: Alert and oriented. Cranial nerves II through XII grossly intact. ASSESSMENT: 1. Sacral decubitus ulcer status post debridement x 2 2. Status post diverting colostomy on 06/14/22 3. Postoperative ileus 4. Possible osteomyelitis 5. Paraplegic PLAN: -Discontinue NG tube -Continue Reglan -Continue TPN for nutrition support -Keep patient nothing by mouth until bowel function occurs -Consult PT OT. Increase activity level -GI prophylaxis Protonix and DVT prophylaxis Lovenox Physician Customs Broker note has been reviewed by physician. Signing provider agrees with the documented findings, assessment, and plan of care. Objective - Vital Signs Vital signs: Vital Signs Temp 97.8 F 06/19/22 14:00 Pulse 83 06/19/22 14:00 Resp 18 06/19/22 14:00 BP 132/70 06/19/22 14:00 Pulse Ox 95 06/19/22 14:00 FiO2 Intake & Output 06/18/22 06/19/22 06/19/22 18:59 06:59 18:59 Output Total 300 300 575 Balance -300 -300 -575 Weight 100.698 kg Output: Drainage 0 0 Abdomen 0 0 Urine 300 300 575 Other: Voiding Method Indwelling Catheter Indwelling Catheter Indwelling Catheter - Labs CBC & Chem 7: 06/19/22 07:22 06/19/22 07:22 Labs: Abnormal Lab Results - Last 24 Hours (Table) 06/19/22 06/19/22 Range/Units 07:22 07:22 RBC 3.65 L (4.30-5.90) m/uL Hgb 10.2 L (13.0-17.5) gm/dL Hct 31.9 L (39.0-53.0) % Chloride 96 L (98-107) mmol/L Carbon Dioxide 39 H (22-30) mmol/L Glucose 117 H (74-99) mg/dL Calcium 8.3 L (8.4-10.2) mg/dL Microbiology - Last 24 Hours (Table) 06/17/22 11:12 Gram Stain - Preliminary Other - Other Tissue Culture - Preliminary Jennifer albicans
[2022-06-19] MEDS: FAT EMULSION 20% 250 ML in EMPTY BAG 1 BAG IV SCH (17:54)
[2022-06-19] MEDS: 1: MVI, ADULT NO.4 WITH VIT K 10 ML, TRACE (CONC-1ML/DOSE) 1 ML in AMINO ACID 5%-D20W+LY IV SCH ×3 (23:47)
[2022-06-20] MEDS: NON FORMULARY DRUG (Morphine Pain Pump 1 DOSE) IV SCH (02:45)
[2022-06-20] MEDS: 1: MVI, ADULT NO.4 WITH VIT K 10 ML, TRACE (CONC-1ML/DOSE) 1 ML in AMINO ACID 5%-D20W+LY IV SCH ×6 (02:45→11:33)
[2022-06-20] MEDS: AMPICILLIN-SULBACTAM 3 GM in SODIUM CHLORIDE 0.9% 100 ML IVPB SCH ×3 (06:27→17:48)
[2022-06-20] MEDS: ALPRAZolam 0.5 MG TAB PO PRN (06:27)
[2022-06-20] MEDS: METOCLOPRAMIDE 5 MG/ML 2 ML VIAL IVP SCH ×3 (06:27→17:48)
[2022-06-20] MEDS: ENOXAPARIN 40 MG/0.4 ML SYRINGE SQ SCH (09:49)
[2022-06-20] MEDS: PANTOPRAZOLE 40 MG/10 ML VIAL IVP SCH (09:49)
[2022-06-20] MEDS: LACTULOSE 20 GM/30 ML CUP PO SCH ×2 (09:50→19:49)
[2022-06-20] MEDS: oxyCODONE-APAP 10-325MG 1 EACH TAB PO PRN ×2 (09:53→19:46)
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
[2022-06-20 11:29] LABS: Magnesium 1.7 mg/dL (1.5-2.4)
[2022-06-20 11:43] LABS: African American GFR (CKD) 119.5 (60.0-200.0); Anion Gap 8.3 mmol/L (10.00-18.00); BUN/Creat Ratio 24.21 Ratio (12.00-20.00); Blood Urea Nitrogen 14.6 mg/dL (9.0-27.0); Calcium 8.4 mg/dL (8.7-10.3); Carbon Dioxide 31.6 mmol/L (20.0-27.5); Non-African American GFR(CKD) 103.1 (60.0-200.0); Potassium 3.8 mmol/L (3.5-5.5)
--- NOTE | 2022-06-20 12:42 | P.PN ---
Progress Note - Text Progress Note Date: 06/20/22 Patient feels better today. He has less nausea. He's had flatus through his colostomy appliance. On exam vital signs are stable. Abdomen is soft. Stoma is pink and functioning with some gas and stool. Status post diverting colostomy was some postoperative ileus. The patient will continue remain nothing by mouth until he is significant bowel function.
[2022-06-20] MEDS ORDERED: MAGNESIUM SULFATE-D5W PMX 1 GM in DEXTROSE/WATER 1 100ML.BAG IVPB ONE (13:00)
[2022-06-20] MEDS: RELISTOR SQ SCH (13:14)
[2022-06-20] MEDS ORDERED: POTASSIUM CHLORIDE 20 MEQ in WATER FOR INJECTION 1 100ML.BAG IVPB ONE (13:30)
[2022-06-20] MEDS: HYDROmorphone 1 MG/ML 1 ML SYRINGE IVP PRN (13:43)
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
[2022-06-21] MEDS: 1: MVI, ADULT NO.4 WITH VIT K 10 ML, TRACE (CONC-1ML/DOSE) 1 ML in AMINO ACID 5%-D20W+LY IV SCH ×9 (00:19→23:47)
[2022-06-21] MEDS: METOCLOPRAMIDE 5 MG/ML 2 ML VIAL IVP SCH ×5 (00:20→23:47)
[2022-06-21] MEDS: AMPICILLIN-SULBACTAM 3 GM in SODIUM CHLORIDE 0.9% 100 ML IVPB SCH ×5 (00:20→23:47)
[2022-06-21] MEDS: ALPRAZolam 0.5 MG TAB PO PRN ×3 (00:22→13:49)
[2022-06-21] MEDS: NON FORMULARY DRUG (Morphine Pain Pump 1 DOSE) IV SCH (07:19)
[2022-06-21] MEDS: oxyCODONE-APAP 10-325MG 1 EACH TAB PO PRN ×2 (08:02→22:07)
[2022-06-21] MEDS: PANTOPRAZOLE 40 MG/10 ML VIAL IVP SCH (10:13)
[2022-06-21] MEDS: ENOXAPARIN 40 MG/0.4 ML SYRINGE SQ SCH (10:13)
[2022-06-21] MEDS: LACTULOSE 20 GM/30 ML CUP PO SCH ×2 (10:49→21:53)
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
[2022-06-21 11:18] LABS: Basophils # (A) 0.02 X 10*3/uL (0.00-0.10); Basophils % (A) 0.3 %; Eosinophils # (A) 0.21 X 10*3/uL (0.04-0.35); Eosinophils % (A) 2.7 %; HCT 32.3 % (39.6-50.0); HGB 9.8 g/dL (13.0-17.0); Immature Grans, Automated 0.9 %; Lymphocytes # (A) 1.52 X 10*3/uL (0.90-5.00); Lymphocytes % (A) 19.7 %; MCHC 30.3 g/dL (32.0-37.0); MCV 92.3 fL (80.0-97.0); Mean Platelet Volume 11.5 fL (9.5-12.2); Monocytes # (A) 0.81 X 10*3/uL (0.20-1.00); Monocytes % (A) 10.5 %; NRBC Per 100 WBC 0 /100 WBCS (0.0-0.0); Neutrophils # (A) 5.09 X 10*3/uL (1.80-7.70); Neutrophils % (A) 65.9 %; Platelet Count 162 X 10*3/uL (140-440); RDW 15.8 % (11.5-14.5); WBC 7.72 X 10*3/uL (4.50-10.00)
[2022-06-21 11:25] LABS: African American GFR (CKD) 119.7 (60.0-200.0); Anion Gap 7.6 mmol/L (10.00-18.00); BUN/Creat Ratio 33.83 Ratio (12.00-20.00); Blood Urea Nitrogen 20.3 mg/dL (9.0-27.0); Calcium 8.3 mg/dL (8.7-10.3); Carbon Dioxide 30.4 mmol/L (20.0-27.5); Non-African American GFR(CKD) 103.3 (60.0-200.0); Phosphorus 3.5 mg/dL (2.4-5.1); Potassium 3.9 mmol/L (3.5-5.5)
--- NOTE | 2022-06-21 12:11 | P.PN ---
Progress Note - Text Progress Note Date: 06/21/22 The patient has had some output through his colostomy. There is been on liquid stool and gas. On exam vital signs are stable. Abdomen soft. Incisions clean dry intact. Colostomy is pink. Status post diverting colostomy for sacral decubitus ulcer. Patient will have his diet slowly advance. Went to be discharged to [facility] on Friday.
[2022-06-21] MEDS: RELISTOR SQ SCH (12:46)
[2022-06-21] MEDS ORDERED: traZODone HCL 50 MG TAB PO PRN (16:28)
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
[2022-06-22] MEDS: NON FORMULARY DRUG (Morphine Pain Pump 1 DOSE) IV SCH (00:34)
[2022-06-22] MEDS: oxyCODONE-APAP 10-325MG 1 EACH TAB PO PRN ×2 (05:47→15:07)
[2022-06-22] MEDS: AMPICILLIN-SULBACTAM 3 GM in SODIUM CHLORIDE 0.9% 100 ML IVPB SCH ×3 (05:47→18:13)
[2022-06-22] MEDS: METOCLOPRAMIDE 5 MG/ML 2 ML VIAL IVP SCH ×3 (06:05→18:07)
[2022-06-22] MEDS: HYDROmorphone 1 MG/ML 1 ML SYRINGE IVP PRN ×2 (09:24→19:59)
[2022-06-22] MEDS: PANTOPRAZOLE 40 MG/10 ML VIAL IVP SCH (09:26)
[2022-06-22] MEDS: ENOXAPARIN 40 MG/0.4 ML SYRINGE SQ SCH (09:26)
--- NOTE | 2022-06-22 09:53 | P.PN ---
Subjective Progress Note Date: 06/22/22 Principal diagnosis: Sacral decubitus ulcer Patient says he is uncomfortable across his body. No significant abdominal pain. Tolerating full liquid diet without nausea or vomiting. Ostomy is now functioning nicely. Patient is asking to go to [facility]. Objective - Vital Signs Vital signs: Vital Signs Temp 98.3 F 06/22/22 07:10 Pulse 76 06/22/22 07:10 Resp 16 06/22/22 07:10 BP 114/67 06/22/22 07:10 Pulse Ox 97 06/22/22 07:10 FiO2 Intake & Output 06/21/22 06/22/22 06/22/22 18:59 06:59 18:59 Intake Total 1388 1000 Output Total 925 800 Balance 463 200 Weight 100.698 kg Intake: IV 1188 Amino Acid 5%-D20w+Lytes* 1188 E* 1,000 ml @ 99 mls/hr IV .BY DURATION [facility] Rx#: [id number] Intake, IV Titration 200 1000 Amount Amino Acid 5%-D20w+Lytes* 1000 E* 1,000 ml @ 99 mls/hr IV .BY DURATION [facility] Rx#: [id number] Ampicillin-Sulbactam 3 gm 200 In Sodium Chloride 0.9% 100 ml @ 200 mls/hr IVPB Q6HR [facility] Rx#:[id number] Output: Urine 925 800 Other: Voiding Method Indwelling Catheter # Bowel Movements 1 - Exam Abdomen: Soft, mild tenderness, dressing clean and dry, ostomy functioning - Labs CBC & Chem 7: 06/21/22 05:44 06/21/22 05:44 Labs: Abnormal Lab Results - Last 24 Hours (Table) 06/21/22 06/21/22 Range/Units 05:44 05:44 RBC 3.50 L (4.40-5.60) X 10*6/uL Hgb 9.8 L (13.0-17.0) g/dL Hct 32.3 L (39.6-50.0) % MCHC 30.3 L (32.0-37.0) g/dL RDW 15.8 H (11.5-14.5) % Immature Gran # 0.07 H (0.00-0.04) X 10*3/uL Carbon Dioxide 30.4 H (20.0-27.5) mmol/L Anion Gap 7.60 L (10.00-18.00) mmol/L BUN/Creatinine Ratio 33.83 H (12.00-20.00) Ratio Glucose 133 H (70-110) mg/dL Calcium 8.3 L (8.7-10.3) mg/dL Microbiology - Last 24 Hours (Table) 06/17/22 11:12 Anaerobic Culture - Preliminary Other - Other Assessment and Plan (1) Sacral decubitus ulcer, stage IV Narrative/Plan: Patient doing well at this time. Will increase diet. Stable for transfer to rehab from our point of view. Current Visit: Yes Status: Acute Code(s): L89.154 - PRESSURE ULCER OF SACRAL REGION, STAGE 4 SNOMED Code(s): 74249835006317
[2022-06-22] MEDS: LACTULOSE 20 GM/30 ML CUP PO SCH ×2 (10:12→20:27)
[2022-06-22] MEDS: 1: MVI, ADULT NO.4 WITH VIT K 10 ML, TRACE (CONC-1ML/DOSE) 1 ML in AMINO ACID 5%-D20W+LY IV SCH ×6 (12:47→14:52)
[2022-06-22] MEDS: LACTATED RINGERS 1,000 ML IV SCH (13:00)
[2022-06-22 13:23] LABS: Basophils # (A) 0.02 X 10*3/uL (0.00-0.10); Basophils % (A) 0.3 %; Eosinophils # (A) 0.31 X 10*3/uL (0.04-0.35); Eosinophils % (A) 4.1 %; HCT 31.1 % (39.6-50.0); HGB 9.6 g/dL (13.0-17.0); Immature Grans, Automated 0.8 %; Lymphocytes # (A) 1.66 X 10*3/uL (0.90-5.00); Lymphocytes % (A) 21.9 %; MCH 28.1 pg (27.0-32.0); MCHC 30.9 g/dL (32.0-37.0); MCV 90.9 fL (80.0-97.0); Mean Platelet Volume 11.4 fL (9.5-12.2); Monocytes # (A) 0.93 X 10*3/uL (0.20-1.00); Monocytes % (A) 12.3 %; NRBC Per 100 WBC 0 /100 WBCS (0.0-0.0); Neutrophils # (A) 4.61 X 10*3/uL (1.80-7.70); Neutrophils % (A) 60.6 %; Platelet Count 147 X 10*3/uL (140-440); RBC 3.42 X 10*6/uL (4.40-5.60); RDW 15.9 % (11.5-14.5); WBC 7.59 X 10*3/uL (4.50-10.00)
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
[2022-06-22 15:23] LABS: African American GFR (CKD) 112.4 (60.0-200.0); Anion Gap 8.3 mmol/L (10.00-18.00); BUN/Creat Ratio 28.14 Ratio (12.00-20.00); Blood Urea Nitrogen 19.7 mg/dL (9.0-27.0); Calcium 8.2 mg/dL (8.7-10.3); Carbon Dioxide 28.7 mmol/L (20.0-27.5); Magnesium 1.9 mg/dL (1.5-2.4); Phosphorus 3.4 mg/dL (2.4-5.1); Potassium 4.2 mmol/L (3.5-5.5)
[2022-06-22] MEDS ORDERED: oxyCODONE-APAP 10-325MG 1 EACH TAB PO PRN (16:32)
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
[2022-06-22] MEDS: FAT EMULSION 20% 250 ML in EMPTY BAG 1 BAG IV SCH (18:21)
[2022-06-22] MEDS: ALPRAZolam 0.5 MG TAB PO PRN (19:59)
[2022-06-23] MEDS: METOCLOPRAMIDE 5 MG/ML 2 ML VIAL IVP SCH ×3 (00:42→12:07)
[2022-06-23] MEDS: AMPICILLIN-SULBACTAM 3 GM in SODIUM CHLORIDE 0.9% 100 ML IVPB SCH ×4 (00:46→18:00)
[2022-06-23] MEDS: NON FORMULARY DRUG (Morphine Pain Pump 1 DOSE) IV SCH (02:45)
[2022-06-23] MEDS: 1: MVI, ADULT NO.4 WITH VIT K 10 ML, TRACE (CONC-1ML/DOSE) 1 ML in AMINO ACID 5%-D20W+LY IV SCH ×6 (04:24→12:35)
[2022-06-23 06:41] LABS: African American GFR (CKD) >90 (>60 ml/min/1.73 sqM); Anion Gap 5 mmol/L; Blood Urea Nitrogen 20 mg/dL (9-20); Calcium 7.8 mg/dL (8.4-10.2); Carbon Dioxide 29 mmol/L (22-30); Chloride 98 mmol/L (98-107); Glucose 161 mg/dL (74-99); Magnesium 1.9 mg/dL (1.6-2.3); Non-African American GFR(CKD) >90 (>60 ml/min/1.73 sqM); Phosphorus 3.7 mg/dL (2.5-4.5); Potassium 4.2 mmol/L (3.5-5.1); Sodium 132 mmol/L (137-145)
[2022-06-23] MEDS: PANTOPRAZOLE 40 MG/10 ML VIAL IVP SCH (08:21)
[2022-06-23] MEDS: LACTULOSE 20 GM/30 ML CUP PO SCH ×2 (08:21→20:59)
[2022-06-23] MEDS: ENOXAPARIN 40 MG/0.4 ML SYRINGE SQ SCH (08:21)
--- NOTE | 2022-06-23 10:18 | P.PN ---
Subjective Progress Note Date: 06/23/22 Principal diagnosis: Sacral decubitus ulcer Patient resting comfortably this morning. No complaints of pain currently. Bowel function persist. No nausea or vomiting. Objective - Vital Signs Vital signs: Vital Signs Temp 98.7 F 06/23/22 07:10 Pulse 83 06/23/22 07:10 Resp 18 06/23/22 07:10 BP 112/58 06/23/22 07:10 Pulse Ox 97 06/23/22 07:10 FiO2 Intake & Output 06/22/22 06/23/22 06/23/22 18:59 06:59 18:59 Intake Total 1000 Output Total 1350 500 Balance -350 -500 Weight 100.698 kg Intake: Intake, IV Titration 1000 Amount Amino Acid 5%-D20w+Lytes* 1000 E* 1,000 ml @ 99 mls/hr IV .BY DURATION [facility] Rx#: [id number] Output: Urine 1000 500 Other 350 Other: Voiding Method Indwelling Catheter Indwelling Catheter # Bowel Movements 1 - Exam Abdomen: Soft, mild tenderness, dressing clean and dry, ostomy functioning - Labs CBC & Chem 7: 06/22/22 06:26 06/23/22 06:02 Labs: Abnormal Lab Results - Last 24 Hours (Table) 06/22/22 06/22/22 06/23/22 Range/Units 06:26 06:26 06:02 RBC 3.42 L (4.40-5.60) X 10*6/uL Hgb 9.6 L (13.0-17.0) g/dL Hct 31.1 L (39.6-50.0) % MCHC 30.9 L (32.0-37.0) g/dL RDW 15.9 H (11.5-14.5) % Immature Gran # 0.06 H (0.00-0.04) X 10*3/uL Sodium 132 L (137-145) mmol/L Carbon Dioxide 28.7 H (20.0-27.5) mmol/L Anion Gap 8.30 L (10.00-18.00) mmol/L Creatinine 0.51 L (0.66-1.25) mg/dL BUN/Creatinine Ratio 28.14 H (12.00-20.00) Ratio Glucose 125 H 161 H (70-110) mg/dL Calcium 8.2 L 7.8 L (8.7-10.3) mg/dL Microbiology - Last 24 Hours (Table) 06/17/22 11:12 Anaerobic Culture - Final Other - Other Assessment and Plan (1) Sacral decubitus ulcer, stage IV Narrative/Plan: Patient doing about the same. Continue diet. Await transfer to rehab. Continue local wound care and offloading. Current Visit: Yes Status: Acute Code(s): L89.154 - PRESSURE ULCER OF SACRAL REGION, STAGE 4 SNOMED Code(s): 51861241147485
[2022-06-23] MEDS: HYDROmorphone 1 MG/ML 1 ML SYRINGE IVP PRN ×2 (12:16→19:37)
--- NOTE | 2022-06-23 13:02 | XR ---
EXAMINATION TYPE: XR chest 1V portable DATE OF EXAM: 06/23/2022 COMPARISON: NONE HISTORY: Cough TECHNIQUE: Single frontal view of the chest is obtained. FINDINGS: There is no focal air space opacity, pleural effusion, or pneumothorax seen. The cardiac silhouette size is within normal limits. Postsurgical changes in the midline chest. PICC line enterin g the left arm and terminating in the SVC. IMPRESSION: No acute process.
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
[2022-06-23] MEDS: ALPRAZolam 0.5 MG TAB PO PRN (19:38)
[2022-06-24] MEDS: AMPICILLIN-SULBACTAM 3 GM in SODIUM CHLORIDE 0.9% 100 ML IVPB SCH ×2 (01:26→05:19)
[2022-06-24] MEDS: NON FORMULARY DRUG (Morphine Pain Pump 1 DOSE) IV SCH (03:47)
[2022-06-24 06:48] LABS: HCT 27.2 % (39.0-53.0); HGB 9.2 gm/dL (13.0-17.5); MCHC 33.8 g/dL (31.0-37.0); MCV 85.8 fL (80.0-100.0); Mean Platelet Volume 8.2; Platelet Count 155 k/uL (150-450); RBC 3.17 m/uL (4.30-5.90); RDW 15.6 % (11.5-15.5)
[2022-06-24 07:12] LABS: ALT 44 U/L (4-49); AST 78 U/L (17-59); African American GFR (CKD) >90 (>60 ml/min/1.73 sqM); Albumin 2.2 g/dL (3.5-5.0); Albumin/Globulin Ratio 0.9; Alkaline Phosphatase 179 U/L (38-126); Anion Gap 3 mmol/L; Blood Urea Nitrogen 13 mg/dL (9-20); Calcium 7.9 mg/dL (8.4-10.2); Carbon Dioxide 32 mmol/L (22-30); Chloride 99 mmol/L (98-107); Globulin 2.5 g/dL; Glucose 88 mg/dL (74-99); Non-African American GFR(CKD) >90 (>60 ml/min/1.73 sqM); Potassium 4.1 mmol/L (3.5-5.1); Sodium 134 mmol/L (137-145); Total Bilirubin 0.5 mg/dL (0.2-1.3); Total Protein 4.7 g/dL (6.3-8.2)
[2022-06-24 07:26] VITALS: RESP 17
[2022-06-24] MEDS: LACTULOSE 20 GM/30 ML CUP PO SCH (08:18)
[2022-06-24] MEDS: ENOXAPARIN 40 MG/0.4 ML SYRINGE SQ SCH (08:18)
[2022-06-24] MEDS: PANTOPRAZOLE 40 MG/10 ML VIAL IVP SCH (08:19)
[2022-06-24] MEDS ORDERED: ERTAPENEM 1 GM in SODIUM CHLORIDE 0.9% 50 ML IVPB SCH (12:00)
[2022-06-24] MEDS: HYDROmorphone 1 MG/ML 1 ML SYRINGE IVP PRN (13:03)
[2022-06-24 14:04] VITALS: BP 111/59; PULSE 86; TEMP 96.9
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
== END 2022-06-24 16:46 | disposition home health service (06) | DRG 579 ==
LOC: EC 14:56 → 6NMEDSUR 18:23 → OBSVTOIN 06-05 19:02 → 4SSUR 06-14 16:34
PROVIDERS: ADMIT Internal Medicine; ATTEND Internal Medicine
PROC: 0KBN0ZZ Excision of Right Hip Muscle, Open Approach (ICD-10-PCS; 2022-06-06)
PROC: 0KBP0ZZ Excision of Left Hip Muscle, Open Approach (ICD-10-PCS; principal; 2022-06-06 14:20)
PROC: 0D1N4Z4 Bypass Sigmoid Colon to Cutaneous, Percutaneous Endoscopic Approach (ICD-10-PCS; 2022-06-14)
PROC: 02HV33Z Insertion of Infusion Device into Superior Vena Cava, Percutaneous Approach (ICD-10-PCS; 2022-06-17)
DX: L89.154 Pressure ulcer of sacral region, stage 4 (principal); E43 Unspecified severe protein-calorie malnutrition; B37.89 Other sites of candidiasis; G82.20 Paraplegia, unspecified; K56.7 Ileus, unspecified; M46.28 Osteomyelitis of vertebra, sacral and sacrococcygeal region; E87.1 Hypo-osmolality and hyponatremia; E87.8 Other disorders of electrolyte and fluid balance, not elsewhere classified; I10 Essential (primary) hypertension; D64.9 Anemia, unspecified; K59.00 Constipation, unspecified; B95.2 Enterococcus as the cause of diseases classified elsewhere; T40.605A Adverse effect of unspecified narcotics, initial encounter; E87.6 Hypokalemia; N44.8 Other noninflammatory disorders of the testis; Z74.01 Bed confinement status; Z88.0 Allergy status to penicillin; Z79.891 Long term (current) use of opiate analgesic; Z68.28 Body mass index [BMI] 28.0-28.9, adult; Z28.310 Unvaccinated for COVID-19
CPT/HCPCS: 36415; 36573; 71045; 72192; 74018; 76870; 80048; 80053; 80202; 82330; 83735; 84100; 84478; 85025; 85027; 85652; 86140; 86850; 86900; 86901; 87040; 87070; 87075; 87077; 87186; 87205; 88304; 93975; 99284

== ENCOUNTER 2023-01-02 14:29 | Emergency (ER) | payer MEDICARE ==
--- NOTE | 2023-01-02 15:14 | XR ---
EXAMINATION TYPE: XR chest 2V DATE OF EXAM: 01/02/2023 COMPARISON: 06/23/2022 HISTORY: Shortness of breath TECHNIQUE: Frontal and lateral views of the chest are obtained. FINDINGS: Scattered senescent parenchymal changes noted. Hyperinflation compatible with COPD. No evidence for infiltrate. No evidence for atelectasis. Heart size is stable. Mediastinal structures are stable and grossly unremarkable. No evidence for hilar prominence. Degenerative changes dorsal spine. IMPRESSION: 1. No evidence for acute pulmonary disease.
--- NOTE | 2023-01-02 15:38 | ED ---
Arrhythmia/Palpitations HPI - General Chief Complaint: Arrhythmia/Palpitations Stated Complaint: irr heart beat Time Seen by Provider: 01/02/23 15:38 Source: patient, family, RN notes reviewed Mode of arrival: wheelchair Limitations: no limitations - History of Present Illness Initial Comments: 67-year-old male presenting with chief complaint of irregular heartbeat. Patient is a paraplegic. Patient was seen at his doctor today for a pain pump refilled, he was noted to have an irregular heart rate and sent to the ER. States that he feels tired at this time, no chest pain. Mild shortness of breath. No palpitations, numbness, tingling, abdominal pain, nausea, vomiting, vision or hearing changes, headache. - Related Data Home Medications Medication Instructions Recorded Confirmed ALPRAZolam [Xanax] 0.5 mg PO Q6H PRN 06/04/22 06/04/22 Morphine Pain Pump 1 dose INTRATHECA CONTINUOUS 06/04/22 06/04/22 oxyCODONE-APAP 10-325MG [Percocet 1 tab PO BID PRN 06/04/22 06/04/22 10-325 mg] Previous Rx's Medication Instructions Recorded Ampicillin Sodium/Sulbactam Na 3 gm IJ Q6H #140 each 06/23/22 [Unasyn 3 gm Vial] Lactulose 20 gm PO AC-BID #1800 ml 06/24/22 oxyCODONE-APAP 10-325MG [Percocet 1 each PO Q4HR PRN #12 tab 06/24/22 10-325 mg] traZODone HCL [Desyrel] 50 mg PO HS PRN #30 tab 06/24/22 Allergies Allergy/AdvReac Type Severity Reaction Status Date / Time Penicillins Allergy Unknown Verified 01/02/23 14:36 Childhood Review of Systems ROS Statement: Those systems with pertinent positive or pertinent negative responses have been documented in the HPI. ROS Other: All systems not noted in ROS Statement are negative. Past Medical History Past Medical History: Hypertension Additional Past Medical History / Comment(s): paraplegic History of Any Multi-Drug Resistant Organisms: None Reported Past Surgical History: Back Surgery, Orthopedic Surgery Additional Past Surgical History / Comment(s): Bilateral leg surgeries. Past Anesthesia/Blood Transfusion Reactions: No Reported Reaction Past Psychological History: Anxiety Smoking Status: Never smoker Past Alcohol Use History: None Reported Past Drug Use History: None Reported General Exam - General Exam Comments Initial Comments: Visual Physical Exam Vital signs reviewed General: Well-appearing, nontoxic, no acute distress. Head: Normocephalic, atraumatic Eyes: PERRLA, EOMI ENT: Airway patent Chest: Nonlabored breathing Skin: No visual rash, normal skin tone Neuro: Alert and oriented 3 Musculoskeletal: No gross abnormalities Limitations: no limitations General appearance: alert, in no apparent distress Head exam: Present: atraumatic, normocephalic, normal inspection Eye exam: Present: normal appearance, EOMI Neck exam: Present: normal inspection, full ROM Respiratory exam: Present: normal lung sounds bilaterally. Absent: respiratory distress, wheezes, rales, rhonchi, stridor Cardiovascular Exam: Present: regular rate, normal rhythm, normal heart sounds. Absent: systolic murmur, diastolic murmur, rubs, gallop, clicks Neurological exam: Present: alert, oriented X3 Psychiatric exam: Present: normal affect, normal mood Skin exam: Present: warm, dry, intact, normal color. Absent: rash Course Vital Signs 01/02/23 01/02/23 01/02/23 14:32 16:45 16:46 Temperature 98 F Pulse Rate 101 H 91 Pulse Rate [ 88 Pulse Oximetery ] Respiratory 16 18 Rate Blood Pressure 102/59 123/67 O2 Sat by Pulse 100 100 Oximetry 01/02/23 17:56 Temperature 97.5 F L Pulse Rate 57 L Pulse Rate [ Pulse Oximetery ] Respiratory 18 Rate Blood Pressure 131/93 O2 Sat by Pulse 96 Oximetry EKG Findings - EKG Comments: EKG Findings:: Sinus tachycardia ventricular rate 103. WI interval 169. QRS 107. QT 340. QTC 400. Medical Decision Making - Medical Decision Making Was pt. sent in by a medical professional or institution (, PA, BRIQUETTER OPERATOR, urgent ca re, hospital, or correction...) When possible be specific @ -Sent by PCP Did you speak to anyone other than the patient for history (EMS, parent, family, police, friend...)? What history was obtained from this source @ -No Did you review nursing and triage notes (agree or disagree)? Why? @ -I reviewed and agree with nursing and triage notes Were old charts reviewed (outside hosp., previous admission, EMS record, old EKG, old radiological studies, urgent care reports/EKG's, correction records)? Report findings @ -No old charts were reviewed Differential Diagnosis (chest pain, altered mental status, abdominal pain women, abdominal pain men, vaginal bleeding, weakness, fever, dyspnea, syncope, headache, dizziness, GI bleed, back pain, seizure, CVA, palpatations, mental health, musculoskeletal)? @ -Differential Palpitations Ventricular arrhythmias, atrial arrhythmias, myocardial infarction, anemia, thyrotoxicosis, electrolyte imbalance, hypokalemia, pulmonary embolism, pulmonary disease, drugs, alcohol, anxiety, stress.... This is not meant to be an all-inclusive list. EKG interpreted by me (3pts min.). @ -As above X-rays interpreted by me (1pt min.). @ -Chest x-ray shows no acute process CT interpreted by me (1pt min.). @ -None done U/S interpreted by me (1pt. min.). @ -None done What testing was considered but not performed or refused? (CT, X-rays, U/S, labs)? Why? @ -None What meds were considered but not given or refused? Why? @ -None Did you discuss the management of the patient with other professionals (professionals i.e. , PA, BRIQUETTER OPERATOR, lab, RT, psych nurse, manager social media, care management coordinator, teacher, commanding officer garage, case managers)? Give summary @ -No Was smoking cessation discussed for >3mins.? @ -No Was critical care preformed (if so, how long)? @ -No Were there social determinants of health that impacted care today? How? (Homelessness, low income, unemployed, alcoholism, drug addiction, transportation, low edu. Level, literacy, decrease access to med. care, shelter, rehab)? @ -No Was there de-escalation of care discussed even if they declined (Discuss DNR or withdrawal of care, Hospice)? DNR status @ -No What co-morbidities impacted this encounter? (DM, HTN, Smoking, COPD, CAD, Cancer, CVA, ARF, Chemo, Hep., AIDS, mental health diagnosis, sleep apnea, mor bid obesity)? @ -None Was patient admitted / discharged? Hospital course, mention meds given and route, prescriptions, significant lab abnormalities, going to OR and other pertinent info. @ -67-year-old male presenting from his PCPs office due to an irregular heart rate that his doctor noted. Patient states that he feels tired at this time is having no other symptoms. Physical exam was conducted. No leukocytosis. Hemoglobin 11.8 consistent with baseline. Negative troponin. EKG shows no acute findings. Negative chest x-ray. On reassessment patient is resting comfortably. He does tell me that his anxiety has been much worse than usual lately. He is given a dose of Ativan here. He is discharged home and instructed to follow-up with his PCP. Advised getting a pulse ox for home to monitor heart rate and any irregularities. Follow-up with PCP. Report back to ER with any new or worsening symptoms. Discussed return parameters and answered all questions. Patient conveyed verbal understanding and agreed to the plan. I discussed this case in detail with my attending Dr. Kamara Undiagnosed new problem with uncertain prognosis? @ -No Drug Therapy requiring intensive monitoring for toxicity (Heparin, Nitro, Insulin, Cardizem)? @ -No Were any procedures done? @ -No Diagnosis/symptom? @ -Anxiety Acute, or Chronic, or Acute on Chronic? @ -acute Uncomplicated (without systemic symptoms) or Complicated (systemic symptoms)? @ -Uncomplicated Side effects of treatment? @ -No Exacerbation, Progression, or Severe Exacerbation? @ -No Poses a threat to life or bodily function? How? (Chest pain, USA, DC, pneumonia, PE, COPD, DKA, ARF, appy, cholecystitis, CVA, Diverticulitis, Homicidal, Suicidal, threat to staff... and all critical care pts) @ -No - Lab Data Result diagrams: 01/02/23 15:44 01/02/23 15:44 Lab Results 01/02/23 01/02/23 01/02/23 Range/Units 15:44 15:44 15:44 WBC 10.2 (3.8-10.6) k/uL RBC 4.70 (4.30-5.90) m/uL Hgb 11.8 L (13.0-17.5) gm/dL Hct 37.0 L (39.0-53.0) % MCV 78.9 L (80.0-100.0) fL MCH 25.1 (25.0-35.0) pg MCHC 31.8 (31.0-37.0) g/dL RDW 15.3 (11.5-15.5) % Plt Count 379 (150-450) k/uL MPV 7.5 Neutrophils % 81 % Lymphocytes % 13 % Monocytes % 3 % Eosinophils % 2 % Basophils % 0 % Neutrophils # 8.2 H (1.3-7.7) k/uL Lymphocytes # 1.4 (1.0-4.8) k/uL Monocytes # 0.3 (0-1.0) k/uL Eosinophils # 0.2 (0-0.7) k/uL Basophils # 0.0 (0-0.2) k/uL Hypochromasia Slight PT 10.8 (10.0-12.5) sec INR 1.0 (<1.2) APTT 26.6 (22.0-30.0) sec Sodium 138 (137-145) mmol/L Potassium 4.1 (3.5-5.1) mmol/L Chloride 100 (98-107) mmol/L Carbon Dioxide 28 (22-30) mmol/L Anion Gap 10 mmol/L BUN 14 (9-20) mg/dL Creatinine 0.65 L (0.66-1.25) mg/dL Est GFR (CKD-EPI)AfAm >90 (>60 ml/min/1.73 sqM) Est GFR (CKD-EPI)NonAf >90 (>60 ml/min/1.73 sqM) Glucose 128 H (74-99) mg/dL Calcium 9.3 (8.4-10.2) mg/dL Magnesium 2.1 (1.6-2.3) mg/dL Total Bilirubin 0.5 (0.2-1.3) mg/dL AST 28 (17-59) U/L ALT 12 (4-49) U/L Alkaline Phosphatase 103 (38-126) U/L Troponin I (0.000-0.034) ng/mL Total Protein 7.3 (6.3-8.2) g/dL Albumin 3.6 (3.5-5.0) g/dL 01/02/23 Range/Units 15:44 WBC (3.8-10.6) k/uL RBC (4.30-5.90) m/uL Hgb (13.0-17.5) gm/dL Hct (39.0-53.0) % MCV (80.0-100.0) fL MCH (25.0-35.0) pg MCHC (31.0-37.0) g/dL RDW (11.5-15.5) % Plt Count (150-450) k/uL MPV Neutrophils % % Lymphocytes % % Monocytes % % Eosinophils % % Basophils % % Neutrophils # (1.3-7.7) k/uL Lymphocytes # (1.0-4.8) k/uL Monocytes # (0-1.0) k/uL Eosinophils # (0-0.7) k/uL Basophils # (0-0.2) k/uL Hypochromasia PT (10.0-12.5) sec INR (<1.2) APTT (22.0-30.0) sec Sodium (137-145) mmol/L Potassium (3.5-5.1) mmol/L Chloride (98-107) mmol/L Carbon Dioxide (22-30) mmol/L Anion Gap mmol/L BUN (9-20) mg/dL Creatinine (0.66-1.25) mg/dL Est GFR (CKD-EPI)AfAm (>60 ml/min/1.73 sqM) Est GFR (CKD-EPI)NonAf (>60 ml/min/1.73 sqM) Glucose (74-99) mg/dL Calcium (8.4-10.2) mg/dL Magnesium (1.6-2.3) mg/dL Total Bilirubin (0.2-1.3) mg/dL AST (17-59) U/L ALT (4-49) U/L Alkaline Phosphatase (38-126) U/L Troponin I <0.012 (0.000-0.034) ng/mL Total Protein (6.3-8.2) g/dL Albumin (3.5-5.0) g/dL Disposition Clinical Impression: Anxiety Disposition: HOME SELF-CARE Condition: Good Instructions (If sedation given, give patient instructions): Heart Palpitations (ED), Anxiety (ED) Additional Instructions: Follow-up with PCP. Report back to ER with any new or worsening symptoms. Is patient prescribed a controlled substance at d/c from ED?: No Referrals: Christian Gordon MD [Primary Care Provider] - 1-2 days Time of Disposition: 17:29
[2023-01-02 16:07] LABS: Basophils % (A) 0 %; Eosinophils # (A) 0.2 k/uL (0-0.7); Eosinophils % (A) 2 %; HGB 11.8 gm/dL (13.0-17.5); Hypochromasia Slight; Lymphocytes # (A) 1.4 k/uL (1.0-4.8); Lymphocytes % (A) 13 %; MCH 25.1 pg (25.0-35.0); MCHC 31.8 g/dL (31.0-37.0); MCV 78.9 fL (80.0-100.0); Mean Platelet Volume 7.5; Monocytes # (A) 0.3 k/uL (0-1.0); Monocytes % (A) 3 %; Neutrophils # (A) 8.2 k/uL (1.3-7.7); Neutrophils % (A) 81 %; Platelet Count 379 k/uL (150-450); RDW 15.3 % (11.5-15.5); WBC 10.2 k/uL (3.8-10.6)
[2023-01-02 16:19] LABS: Partial Thromboplastin Time 26.6 sec (22.0-30.0); Prothrombin Time 10.8 sec (10.0-12.5)
[2023-01-02 16:33] LABS: ALT 12 U/L (4-49); AST 28 U/L (17-59); African American GFR (CKD) >90 (>60 ml/min/1.73 sqM); Albumin 3.6 g/dL (3.5-5.0); Alkaline Phosphatase 103 U/L (38-126); Blood Urea Nitrogen 14 mg/dL (9-20); Calcium 9.3 mg/dL (8.4-10.2); Carbon Dioxide 28 mmol/L (22-30); Chloride 100 mmol/L (98-107); Glucose 128 mg/dL (74-99); Magnesium 2.1 mg/dL (1.6-2.3); Non-African American GFR(CKD) >90 (>60 ml/min/1.73 sqM); Total Bilirubin 0.5 mg/dL (0.2-1.3); Total Protein 7.3 g/dL (6.3-8.2)
[2023-01-02 16:43] LABS: Anion Gap 10 mmol/L; Potassium 4.1 mmol/L (3.5-5.1); Sodium 138 mmol/L (137-145)
[2023-01-02 16:57] VITALS: RESP 18
[2023-01-02] MEDS ORDERED: LORazepam 2 MG/ML INJ IV STA (17:00)
[2023-01-02 18:03] VITALS: BP 131/93; PULSE 57; TEMP 97.5
== END 2023-01-02 17:56 | disposition home or self-care (01) ==
LOC: EC 14:29
DX: F41.9 Anxiety disorder, unspecified (principal); R00.0 Tachycardia, unspecified; I10 Essential (primary) hypertension; Z88.0 Allergy status to penicillin; Z79.899 Other long term (current) drug therapy
CPT/HCPCS: 36415; 93005; 80053; 83735; 84484; 85025; 85610; 85730; 71046; 99285; 96374; J2060

== ENCOUNTER 2023-10-16 13:48 | Inpatient (IN) | payer MEDICARE ==
--- NOTE | 2023-10-16 14:10 | ED ---
Skin/Abscess/FB HPI - General Chief complaint: Skin/Abscess/Foreign Body Stated complaint: abcess Time Seen by Provider: 10/16/23 14:03 Source: patient, RN notes reviewed Mode of arrival: EMS Limitations: no limitations - History of Present Illness Initial comments: This is a 67-year-old male who presents to the emergency department for concerns of infection. Patient is a paraplegic and has developed wounds on the bilateral feet, worse on the left foot, over the last several weeks. He has nurses who check on the wounds and re-bandages them once a week. However, there is concern that they are not getting any better. Not currently on antibiotics. He does also have a sacral wound, which he states has been there for the last year and a half and is also not healing well. The nurses advised he come to the emergency department for evaluation of worsening infection. Denies any fevers or chills. States that he does seem more fatigued than normal and spent a lot of the day sleeping yesterday. - Related Data Home Medications Medication Instructions Recorded Confirmed oxyCODONE-APAP 10-325MG [Percocet 1 tab PO QID PRN 06/04/22 10/16/23 10-325 mg] Patient Own Pump 0 bag 10/16/23 Allergies Allergy/AdvReac Type Severity Reaction Status Date / Time Penicillins Allergy Unknown Verified 10/16/23 14:54 Childhood Review of Systems ROS Statement: Those systems with pertinent positive or pertinent negative responses have been documented in the HPI. ROS Other: All systems not noted in ROS Statement are negative. Past Medical History Past Medical History: Hypertension Additional Past Medical History / Comment(s): paraplegic History of Any Multi-Drug Resistant Organisms: None Reported Past Surgical History: Back Surgery, Orthopedic Surgery Additional Past Surgical History / Comment(s): Bilateral leg surgeries. Past Anesthesia/Blood Transfusion Reactions: No Reported Reaction Past Psychological History: Anxiety Smoking Status: Never smoker Past Alcohol Use History: None Reported Past Drug Use History: None Reported General Exam Limitations: no limitations General appearance: alert, in no apparent distress Head exam: Present: atraumatic, normocephalic, normal inspection Respiratory exam: Present: normal lung sounds bilaterally. Absent: respiratory distress, wheezes, rales, rhonchi, stridor Cardiovascular Exam: Present: regular rate, normal rhythm, normal heart sounds. Absent: systolic murmur, diastolic murmur, rubs, gallop, clicks Neurological exam: Present: alert, oriented X3, CN II-XII intact Psychiatric exam: Present: normal affect, normal mood Skin exam: Present: warm, dry, intact, normal color. Absent: rash Course Vital Signs 10/16/23 10/16/23 10/16/23 14:50 17:25 19:53 Temperature 99.0 F 98.8 F Pulse Rate 94 83 98 Respiratory 18 18 18 Rate Blood Pressure 111/62 109/46 103/59 O2 Sat by Pulse 97 98 95 Oximetry 10/16/23 10/16/23 20:02 21:38 Temperature 98.4 F Pulse Rate 97 72 Respiratory 16 19 Rate Blood Pressure 104/52 140/68 O2 Sat by Pulse 97 99 Oximetry Medical Decision Making - Medical Decision Making This is a 67 year old male who presents to the emergency department for concerns of an infection in his lower extremities. Was pt. sent in by a medical professional or institution? @ -No Did you speak to anyone other than the patient for history? @ -No Did you review nursing and triage notes? @ -Yes, and I agree, it is accurate with regards to the patient's symptoms. Were old charts reviewed? @ -No Differential Diagnosis? @ -Differential Infection: Cellulitis, osteomyelitis, venous stasis ulcer, gangrene, this is not meant to be an all-inclusive list. EKG interpreted by me (3pts min.)? @ -EKG interpreted by me demonstrating the following: Sinus rhythm. Ventricular rate 80 bpm, IN interval 182 ms, QRS duration 106 ms, QTc 408 ms. X-rays interpreted by me (1pt min.)? @ -X-ray of the bilateral feet and ankles obtained. My interpretation identifies no evidence of osseous destruction. CT interpreted by me (1pt min.)? @ -Not obtained U/S interpreted by me (1pt. min.)? @ -Not obtained What testing was considered but not performed? (CT, X-rays, U/S, labs)? Why? @ -None What meds were considered but not given? Why? @ -None Did you discuss the management of the patient with other professionals? @ -No Did you reconcile home meds? @ -Yes Was smoking cessation discussed for >3mins.? @ -No Was critical care preformed (if so, how long)? @ -No Were there social determinants of health that impacted care today? How? (Homelessness, low income, unemployed, alcoholism, drug addiction, transportation, low edu. Level, literacy, decrease access to med. care, detention, rehab)? @ -No Was there de-escalation of care discussed even if they declined? (Discuss DNR or withdrawal of care, Hospice)? @ -No What co-morbidities impacted this encounter? (DM, HTN, Smoking, COPD, CAD, Cancer, CVA, Hep., AIDS, mental health diagnosis, sleep apnea, morbid obesity)? @ -HTN, paraplegia Was patient admitted / discharged? @ -Admitted. Lab work demonstrates leukocytosis and was otherwise unremarkable. X-ray of the bilateral feet and ankles demonstrates soft tissue wounds and swelling suggestive of cellulitis. There is no evidence for osteomyelitis at this time. Aerobic and anaerobic wound cultures obtained. Blood cultures obtained as well. Patient started on vancomycin and cefepime. Patient admitted to medicine for further management of lower extremity cellulitis given the depth of the wounds and patient developing systemic symptoms. Consult placed for infectious disease. Case discussed with ED attending, Dr. Guzmán. Undiagnosed new problem with uncertain prognosis? @ -None Drug Therapy requiring intensive monitoring for toxicity (Heparin, Nitro, Insulin, Cardizem)? @ -None Were any procedures done? @ -None Diagnosis/symptom? @ -Cellulitis of the left foot Acute, or Chronic, or Acute on Chronic? @ -Acute Uncomplicated (without systemic symptoms) or Complicated (systemic symptoms)? @ -Complicated Side effects of treatment? @ -None Exacerbation, Progression, or Severe Exacerbation] @ -Not applicable Poses a threat to life or bodily function? @ -Yes, can lead to septic shock, which can lead to organ dysfunction and . - Lab Data Result diagrams: 10/16/23 15:03 10/16/23 15:03 Lab Results 10/16/23 10/16/23 10/16/23 Range/Units 15:03 15:03 15:03 WBC 16.0 H (3.8-10.6) k/uL RBC 3.73 L (4.30-5.90) m/uL Hgb 9.0 L (13.0-17.5) gm/dL Hct 27.4 L (39.0-53.0) % MCV 73.4 L (80.0-100.0) fL MCH 24.2 L (25.0-35.0) pg MCHC 33.0 (31.0-37.0) g/dL RDW 15.8 H (11.5-15.5) % Plt Count 311 (150-450) k/uL MPV 8.4 Neutrophils % 82 % Lymphocytes % 8 % Monocytes % 8 % Eosinophils % 1 % Basophils % 0 % Neutrophils # 13.1 H (1.3-7.7) k/uL Lymphocytes # 1.3 (1.0-4.8) k/uL Monocytes # 1.3 H (0-1.0) k/uL Eosinophils # 0.1 (0-0.7) k/uL Basophils # 0.0 (0-0.2) k/uL Hypochromasia Marked Microcytosis Moderate ESR 88 H (0-20) mm/Hr Sodium 135 L (137-145) mmol/L Potassium 4.7 (3.5-5.1) mmol/L Chloride 98 (98-107) mmol/L Carbon Dioxide 32 H (22-30) mmol/L Anion Gap 5 mmol/L BUN 13 (9-20) mg/dL Creatinine 0.60 L (0.66-1.25) mg/dL Est GFR (CKD-EPI)AfAm >90 (>60 ml/min/1.73 sqM) Est GFR (CKD-EPI)NonAf >90 (>60 ml/min/1.73 sqM) Glucose 133 H (74-99) mg/dL Plasma Lactic Acid David 1.4 (0.7-2.0) mmol/L Calcium 8.8 (8.4-10.2) mg/dL Total Bilirubin 0.4 (0.2-1.3) mg/dL AST 17 (17-59) U/L ALT 9 (4-49) U/L Alkaline Phosphatase 99 (38-126) U/L C-Reactive Protein 14.0 H (<1.0) mg/dL Total Protein 6.1 L (6.3-8.2) g/dL Albumin 2.9 L (3.5-5.0) g/dL - Radiology Data Radiology results: report reviewed, image reviewed Disposition Clinical Impression: Cellulitis of both lower extremities, Sacral decubitus ulcer Disposition: ADMITTED IP TO THIS HOSP
[2023-10-16 15:38] LABS: ALT 9 U/L (4-49); AST 17 U/L (17-59); African American GFR (CKD) >90 (>60 ml/min/1.73 sqM); Albumin 2.9 g/dL (3.5-5.0); Alkaline Phosphatase 99 U/L (38-126); Anion Gap 5 mmol/L; Blood Urea Nitrogen 13 mg/dL (9-20); Calcium 8.8 mg/dL (8.4-10.2); Carbon Dioxide 32 mmol/L (22-30); Chloride 98 mmol/L (98-107); Glucose 133 mg/dL (74-99); Non-African American GFR(CKD) >90 (>60 ml/min/1.73 sqM); Potassium 4.7 mmol/L (3.5-5.1); Sodium 135 mmol/L (137-145); Total Bilirubin 0.4 mg/dL (0.2-1.3); Total Protein 6.1 g/dL (6.3-8.2)
[2023-10-16 15:48] LABS: Basophils % (A) 0 %; Eosinophils # (A) 0.1 k/uL (0-0.7); Eosinophils % (A) 1 %; HCT 27.4 % (39.0-53.0); Hypochromasia Marked; Lymphocytes # (A) 1.3 k/uL (1.0-4.8); Lymphocytes % (A) 8 %; MCH 24.2 pg (25.0-35.0); MCV 73.4 fL (80.0-100.0); Mean Platelet Volume 8.4; Microcytosis Moderate; Monocytes # (A) 1.3 k/uL (0-1.0); Monocytes % (A) 8 %; Neutrophils # (A) 13.1 k/uL (1.3-7.7); Neutrophils % (A) 82 %; Platelet Count 311 k/uL (150-450); RBC 3.73 m/uL (4.30-5.90); RDW 15.8 % (11.5-15.5)
--- NOTE | 2023-10-16 15:59 | XR ---
EXAMINATION TYPE: XR ankle complete bilateral, XR foot complete bilateral DATE OF EXAM: 10/16/2023 2:41 PM CLINICAL INDICATION:Male, 67 years old with history of Infection; [facility] COMPARISON: None TECHNIQUE: XR ankle complete bilateral, XR foot complete bilateral; ankle is imaged in frontal, late ral and oblique projections. FINDINGS: Diffuse osseous demineralization throughout the foot. There is soft tissue swelling. Soft t issue defect over the heel on the left foot and to a lesser extent the right foot are present. No supriya dence for osteomyelitis at this time no evidence for erosion. Multifocal degeneration changes of the joints of the feet with osteophyte formation and joint space narrowing. IMPRESSION: 1. Soft tissue wounds without evidence for osteomyelitis at this time. 2. Soft tissue swelling correlate for cellulitis. 3. Multifocal degeneration changes of the feet.
[2023-10-16] MEDS ORDERED: VANCOMYCIN IV PER PHARMACY 1 EACH MISC MISCELLANE PRN (16:06)
[2023-10-16] MEDS ORDERED: CEFEPIME 1 GM in SODIUM CHLORIDE 0.9% 50 ML IVPB SCH (16:15)
[2023-10-16] MEDS ORDERED: MORPHINE SULFATE 4 MG/ML SYRINGE IV PRN (16:18)
[2023-10-16] MEDS ORDERED: HYDROcodone/APAP 5-325MG 1 EACH TAB PO PRN (16:18)
[2023-10-16] MEDS ORDERED: ACETAMINOPHEN TAB 325 MG TAB PO PRN (16:18)
[2023-10-16] MEDS ORDERED: NALOXONE 0.4 MG/ML 1 ML VIAL IV PRN (16:18)
[2023-10-16] MEDS ORDERED: KETOROLAC 15 MG/ML 1 ML VIAL IVP PRN (16:21)
[2023-10-16] MEDS: CEFEPIME 2 GM in SODIUM CHLORIDE 0.9% 100 ML IVPB STA (17:16)
[2023-10-16] MEDS: SODIUM CHLORIDE 0.9% 1,000 ML IV ONE (17:18)
[2023-10-16] MEDS: oxyCODONE-APAP 10-325MG 1 EACH TAB PO PRN (17:53)
[2023-10-16] MEDS: SODIUM CHLORIDE 0.9% 500 ML 500 ML IV ONE (18:28)
[2023-10-16 18:44] LABS: Erythrocyte Sedimentation Rate 88 mm/Hr (0-20)
[2023-10-16] MEDS: VANCOMYCIN 1,500 MG in SODIUM CHLORIDE 0.9% 500 ML 500 ML IVPB STA (19:41)
[2023-10-17] MEDS: CEFEPIME 2 GM in SODIUM CHLORIDE 0.9% 100 ML IVPB SCH (00:59)
[2023-10-17] MEDS ORDERED: VANCOMYCIN 1,500 MG in SODIUM CHLORIDE 0.9% 500 ML 500 ML IVPB SCH (04:00)
[2023-10-17] MEDS: PANTOPRAZOLE 40 MG/10 ML VIAL IV SCH (08:40)
[2023-10-17 15:23] VITALS: BMI 21.2
[2023-10-17] MEDS: MELATONIN 5 MG TABLET PO PRN (20:27)
--- NOTE | 2023-10-18 08:55 | P.CONS ---
History of Present Illness - Reason for Consult Consult date: 10/17/23 Bilateral lower extremity cellulitis Requesting physician: Jacqui Paul - Chief Complaint Worsening wound to the left heel x weeks - History of Present Illness Patient is a 68-year-old male with a past medical history significant for hypertension history of paraplegia anxiety patient did have a sacral pressure ulcer for the patient was in May 2022 when the patient did have sacral osteomyelitis patient is status post diverting colostomy to help this wound local culture at that time grew Acinetobacter Enterococcus and the patient was advised a 6-week course of IV Unasyn with the patient has completed patient apparently has been doing wound care and mention has used wound VAC for couple of months subsequently treatment has been switched to a different modality of the patient not very clear about patient is now presenting to the ER concerning for infection apparently the patient has developed some wounds on bilateral feet and has worse on the left heel area that apparently has been getting worse for the last few weeks patient was evaluated by the home care nurse who has noticed worsening of the wound and nonhealing subsequent advised the patient to go to the hospital concerning for infection and antibiotic therapy patient denies having any fever or any chills and no fever have been recorded on presentation to the hospital patient was nontachycardic hypotensive or hypoxic he did have white count of 16,000 with a left shift creatinine was normal at 0.70 electrolytes normal liver enzymes are normal sed rate is 88 CRP is 14 blood cultures obtained as well as local culture patient also have a ankle x-ray soft tissue wound without evidence of osteomyelitis at this point Review of Systems Positive point and negatives has been mentioned in the HPI, complete review of systems was performed and all other systems are negative Past Medical History Past Medical History: Hypertension Additional Past Medical History / Comment(s): paraplegic History of Any Multi-Drug Resistant Organisms: None Reported Past Surgical History: Back Surgery, Orthopedic Surgery Additional Past Surgical History / Comment(s): Bilateral leg surgeries. Past Anesthesia/Blood Transfusion Reactions: No Reported Reaction Past Psychological History: Anxiety Smoking Status: Never smoker Past Alcohol Use History: None Reported Past Drug Use History: None Reported Medications and Allergies Home Medications Medication Instructions Recorded Confirmed Type oxyCODONE-APAP 10-325MG [Percocet 1 tab PO QID PRN 06/04/22 10/16/23 History 10-325 mg] Patient Own Pump 0 bag 10/16/23 History Allergies Allergy/AdvReac Type Severity Reaction Status Date / Time Penicillins Allergy Unknown Verified 10/16/23 14:54 Childhood vancomycin Allergy Dyspnea Verified 10/17/23 16:39 Physical Exam Vitals: Vital Signs Temp Pulse Pulse Resp BP BP Pulse Ox 10/17/23 12:33 98.5 F 65 101/61 100 10/17/23 07:21 98.4 F 63 17 92/50 100 10/17/23 01:51 98.8 F 80 17 102/65 95 10/16/23 23:00 70 16 101/69 95 10/16/23 22:40 99.5 F 40 L 16 92/59 93 L 10/16/23 22:22 16 10/16/23 21:38 98.4 F 72 19 140/68 99 10/16/23 20:02 97 16 104/52 97 10/16/23 19:53 98.8 F 98 18 103/59 95 10/16/23 17:25 99.0 F 83 18 109/46 98 10/16/23 14:50 94 18 111/62 97 Intake and Output 10/16/23 10/17/23 10/17/23 22:59 06:59 14:59 Intake Total 100 Balance 100 Intake: Intake, IV Titration 100 Amount Cefepime 2 gm In Sodium 100 Chloride 0.9% 100 ml @ 200 mls/hr IVPB Q8H [facility] Rx#:[id number] Other: Voiding Method Self-Catheterization Self-Catheterization # Voids 1 Weight 77.111 kg GENERAL DESCRIPTION: Elderly male lying in bed, no distress. No tachypnea or accessory muscle of respiration use. HEENT: Shows Pallor , no scleral icterus. Oral mucous membrane is dry. No pharyngeal erythema or thrush NECK: Trachea central, no thyromegaly. LUNGS: Unlabored breathing. Clear to auscultation anteriorly. No wheeze or crackle. HEART: S1, S2, regular rate and rhythm. No loud murmur ABDOMEN: Soft, no tenderness , guarding or rigidity, no organomegaly EXTREMITIES: Left heel with a stage IV pressure ulcer with a bony palpable did have some purulent drainage has been cultured SKIN: Patient did have a stage III sacral pressure ulcer with no slough tissue or surrounding redness NEUROLOGICAL: The patient is awake, alert, oriented x3, mood and affect normal. Results CBC & Chem 7: 10/16/23 15:03 10/16/23 15:03 Labs: Abnormal Lab Results - Last 24 Hours (Table) 10/16/23 10/16/23 Range/Units 15:03 15:03 WBC 16.0 H (3.8-10.6) k/uL RBC 3.73 L (4.30-5.90) m/uL Hgb 9.0 L (13.0-17.5) gm/dL Hct 27.4 L (39.0-53.0) % MCV 73.4 L (80.0-100.0) fL MCH 24.2 L (25.0-35.0) pg RDW 15.8 H (11.5-15.5) % Neutrophils # 13.1 H (1.3-7.7) k/uL Monocytes # 1.3 H (0-1.0) k/uL ESR 88 H (0-20) mm/Hr Sodium 135 L (137-145) mmol/L Carbon Dioxide 32 H (22-30) mmol/L Creatinine 0.60 L (0.66-1.25) mg/dL Glucose 133 H (74-99) mg/dL C-Reactive Protein 14.0 H (<1.0) mg/dL Total Protein 6.1 L (6.3-8.2) g/dL Albumin 2.9 L (3.5-5.0) g/dL Microbiology - Last 24 Hours (Table) 10/16/23 17:32 Gram Stain - Preliminary Foot - Left Assessment and Plan (1) Stage III pressure ulcer of sacral region Current Visit: Yes Status: Acute Code(s): L89.153 - PRESSURE ULCER OF SACRAL REGION, STAGE 3 SNOMED Code(s): 53162231373010 (2) Stage IV pressure ulcer of left heel Current Visit: Yes Status: Acute Code(s): L89.624 - PRESSURE ULCER OF LEFT HEEL, STAGE 4 SNOMED Code(s): 11220642578905 (3) Foot osteomyelitis, left Current Visit: Yes Status: Acute Code(s): M86.9 - OSTEOMYELITIS, UNSPECIFIED SNOMED Code(s): 6754647560848279 (4) Allergy to multiple antibiotics Current Visit: Yes Status: Acute Code(s): Z88.1 - ALLERGY STATUS TO OTHER ANTIBIOTIC AGENTS SNOMED Code(s): 761017555 Plan: 1patient presented to the hospital with a worsening wound especially to the left heel area that has been there for couple of weeks patient bonus palpable and there was some purulent drainage concerning for osteomyelitis. 2patient also have a stage III sacral pressure ulcer with the wound exposed no significant slough tissue or surrounding redness. 3patient with the documented allergy on the chart of vancomycin and penicillin however the patient has been treated with the Unasyn last year without any problem clinically doubt true penicillin allergy. 4local wound care to the left heel and sacral wound with a dry Aquacel dressing change daily to every 48 hours depending upon the drainage. 5continue with cefepime while waiting for the culture to finalize will likely need a PICC line and outpatient IV antibiotic therapy. Question concern answered and care discussed with the nursing staff. We will follow on clinical condition and cultures to further adjust medication if needed Thank you for this consultation we will follow the patient along with you Dictation was produced using [employer] dictation software. please excuse any grammatical, word or spelling errors. Time with Patient: Greater than 30
--- NOTE | 2023-10-18 16:11 | P.PN ---
Subjective Progress Note Date: 10/18/23 Principal diagnosis: Reason for follow-up is left heel wound/osteomyelitis and sacral wound Patient is a 68-year-old male with a past medical history significant for hypertension history of paraplegia anxiety patient did have a sacral pressure ulcer for the patient was in May 2022 when the patient did have sacral osteomyelitis now presented to hospital with a worsening wound to the left heel and right big toe area. On today's evaluation that is 10/18/2023,the patient remains to be afebrile, patient is on room air not requiring supplemental oxygen and denies any shortness of breath no chest pain or cough.Patient denies having any nausea or vomiting, no abdominal pain and no diarrhea has been reported. No new lab has been obtained today cultures currently pending Objective - Vital Signs Vital signs: Vital Signs Temp 98.6 F 10/18/23 13:18 Pulse 69 10/18/23 13:18 Resp 19 10/18/23 13:18 BP 127/54 10/18/23 13:18 Pulse Ox 98 10/18/23 13:18 FiO2 Intake & Output 10/17/23 10/18/23 10/18/23 18:59 06:59 18:59 Intake Total 480 1020 240 Output Total 500 500 Balance -20 520 240 Weight 77.111 kg Intake: Oral 480 1020 240 Output: Urine 500 500 Other: Voiding Method Self-Catheterization Self-Catheterization Self-Catheterization - Exam GENERAL DESCRIPTION: An elderly male lying in bed in no distress RESPIRATORY SYSTEM: Unlabored breathing , decreased breath sounds at bases HEART: S1 S2 regular rate and rhythm , ABDOMEN: Soft , no tenderness EXTREMITIES: Left heel wound is currently dressed it has a wound on the dorsum aspect of the left big toe minimal drainage - Labs CBC & Chem 7: 10/16/23 15:03 10/16/23 15:03 Labs: Microbiology - Last 24 Hours (Table) 10/17/23 17:23 Gram Stain - Preliminary Foot - Left 10/16/23 17:00 Blood Culture - Preliminary Blood 10/16/23 17:15 Blood Culture - Preliminary Blood Assessment and Plan (1) Stage III pressure ulcer of sacral region Current Visit: Yes Status: Acute Code(s): L89.153 - PRESSURE ULCER OF SACRAL REGION, STAGE 3 SNOMED Code(s): 44356077570713 (2) Stage IV pressure ulcer of left heel Current Visit: Yes Status: Acute Code(s): L89.624 - PRESSURE ULCER OF LEFT HEEL, STAGE 4 SNOMED Code(s): 56347375882849 (3) Foot osteomyelitis, left Current Visit: Yes Status: Acute Code(s): M86.9 - OSTEOMYELITIS, UNSPECIFIED SNOMED Code(s): 6082592138021479 (4) Allergy to multiple antibiotics Current Visit: Yes Status: Acute Code(s): Z88.1 - ALLERGY STATUS TO OTHER ANTIBIOTIC AGENTS SNOMED Code(s): 228304120 Plan: 1patient presented to the hospital with a worsening wound especially to the left heel area that has been there for couple of weeks patient bonus palpable and there was some purulent drainage concerning for osteomyelitis. 2patient also have a stage III sacral pressure ulcer with the wound exposed no significant slough tissue or surrounding redness. 3patient with the documented allergy on the chart of vancomycin and penicillin however the patient has been treated with the Unasyn last year without any problem this has been confirmed with the will take penicillin allergy on the chart 4local wound care to the left heel with a dry Aquacel dressing change daily to every 48 hours depending upon the drainage, will apply wound VAC to the sacral wound with a layer of Medihoney change Friday and 5patient to continue with cefepime while waiting for the culture to finalize will likely need a PICC line and outpatient IV antibiotic therapy. at the bedside multiple question concern answered Dictation was produced using [employer] dictation software. please excuse any grammatical, word or spelling errors. Time with Patient: Less than 30
[2023-10-18] MEDS: oxyCODONE-APAP 10-325MG 1 EACH TAB PO SCH (21:59)
[2023-10-19] MEDS: FLUTICASONE NASAL 50MCG/SPRAY 16GM BTL EA NOSTRIL PRN (13:06)
[2023-10-19] MEDS: ONDANSETRON 4 MG/2 ML VIAL IVP PRN (14:44)
--- NOTE | 2023-10-19 14:51 | P.PN ---
Subjective Progress Note Date: 10/19/23 Principal diagnosis: Reason for follow-up is left heel wound/osteomyelitis and sacral wound Patient is a 68-year-old male with a past medical history significant for hypertension history of paraplegia anxiety patient did have a sacral pressure ulcer for the patient was in May 2022 when the patient did have sacral osteomyelitis now presented to hospital with a worsening wound to the left heel and right big toe area. On today's evaluation that is 10/19/2023, the patient continues to be afebrile, the patient is on room air and breathing comfortably, the Pt denies having any chest pain or cough, the patient denies having any abdominal pain no vomiting or any diarrhea, no new symptoms. No new lab has been obtained today local culture currently growing presumptive Staph aureus Objective - Vital Signs Vital signs: Vital Signs Temp 98.8 F 10/19/23 07:54 Pulse 72 10/19/23 07:54 Resp 16 10/19/23 07:54 BP 118/57 10/19/23 07:54 Pulse Ox 100 10/19/23 07:54 FiO2 Intake & Output 10/18/23 10/19/23 10/19/23 18:59 06:59 18:59 Intake Total 365 Output Total 800 725 900 Balance -474 -021 -900 Intake: Intake, IV Titration 125 Amount Cefepime 2 gm In Sodium 125 Chloride 0.9% 100 ml @ 200 mls/hr IVPB Q8H [facility] Rx#:[id number] Oral 240 Output: Urine 800 725 900 Other: Voiding Method Self-Catheterization Self-Catheterization Self-Catheterization - Exam GENERAL DESCRIPTION: An elderly male lying in bed in no distress RESPIRATORY SYSTEM: Unlabored breathing , decreased breath sounds at bases HEART: S1 S2 regular rate and rhythm , ABDOMEN: Soft , no tenderness EXTREMITIES: Left heel wound is currently dressed it has a wound on the dorsum aspect of the left big toe minimal drainage - Labs CBC & Chem 7: 10/16/23 15:03 10/16/23 15:03 Labs: Microbiology - Last 24 Hours (Table) 10/16/23 17:00 Blood Culture - Preliminary Blood 10/16/23 17:15 Blood Culture - Preliminary Blood 10/17/23 17:23 Gram Stain - Preliminary Foot - Left Wound Culture - Preliminary Presumptive Staph aureus Assessment and Plan (1) Stage III pressure ulcer of sacral region Current Visit: Yes Status: Acute Code(s): L89.153 - PRESSURE ULCER OF SACRAL REGION, STAGE 3 SNOMED Code(s): 77524770884540 (2) Stage IV pressure ulcer of left heel Current Visit: Yes Status: Acute Code(s): L89.624 - PRESSURE ULCER OF LEFT HEEL, STAGE 4 SNOMED Code(s): 72954421508701 (3) Foot osteomyelitis, left Current Visit: Yes Status: Acute Code(s): M86.9 - OSTEOMYELITIS, UNSPECIFIED SNOMED Code(s): 9976071674908618 (4) Allergy to multiple antibiotics Current Visit: Yes Status: Acute Code(s): Z88.1 - ALLERGY STATUS TO OTHER ANTIBIOTIC AGENTS SNOMED Code(s): 989307691 Plan: 1patient presented to the hospital with a worsening wound especially to the left heel area that has been there for couple of weeks patient bonus palpable and there was some purulent drainage concerning for osteomyelitis. 2patient also have a stage III sacral pressure ulcer with the wound exposed no significant slough tissue or surrounding redness. 3patient with the documented allergy on the chart of vancomycin and penicillin however the patient has been treated with the Unasyn last year without any problem this has been confirmed with the will take penicillin allergy on the chart 4local wound care to the left heel with a dry Aquacel dressing change daily to every 48 hours depending upon the drainage, will apply wound VAC to the sacral wound with a layer of Medihoney change Friday and 5patient to continue with cefepime local culture currently growing Staph aureus sensitivities pending add daptomycin pending culture we will order PICC line for tomorrow Dictation was produced using [employer] dictation software. please excuse any grammatical, word or spelling errors. Time with Patient: Less than 30
[2023-10-19 15:34] LABS: Basophils % (A) 0 %; Eosinophils # (A) 0.1 k/uL (0-0.7); Eosinophils % (A) 1 %; HGB 8.7 gm/dL (13.0-17.5); Hypochromasia Marked; Lymphocytes # (A) 0.8 k/uL (1.0-4.8); Lymphocytes % (A) 8 %; MCH 23.2 pg (25.0-35.0); MCHC 31.1 g/dL (31.0-37.0); MCV 74.5 fL (80.0-100.0); Mean Platelet Volume 7.2; Microcytosis Slight; Monocytes # (A) 0.4 k/uL (0-1.0); Monocytes % (A) 4 %; Neutrophils # (A) 9.7 k/uL (1.3-7.7); Neutrophils % (A) 87 %; Platelet Count 345 k/uL (150-450); RBC 3.76 m/uL (4.30-5.90); RDW 15.9 % (11.5-15.5); WBC 11.1 k/uL (3.8-10.6)
[2023-10-19 15:49] LABS: African American GFR (CKD) >90 (>60 ml/min/1.73 sqM); Anion Gap 4 mmol/L; Blood Urea Nitrogen 14 mg/dL (9-20); Calcium 8.5 mg/dL (8.4-10.2); Carbon Dioxide 28 mmol/L (22-30); Chloride 102 mmol/L (98-107); Glucose 105 mg/dL (74-99); Non-African American GFR(CKD) >90 (>60 ml/min/1.73 sqM); Potassium 3.5 mmol/L (3.5-5.1); Sodium 134 mmol/L (137-145)
--- NOTE | 2023-10-19 16:40 | P.HPIM ---
History of Present Illness H&P Date: 10/17/23 Chief Complaint: Wound infection 67-year-old male, history of hypertension, paraplegia who presents to the emergency department for concerns of infection. Patient is a paraplegic and has developed wounds on the bilateral feet, worse on the left foot, over the last several weeks. He has nurses who check on the wounds and re-bandages them once a week. However, there is concern that they are not getting any better. Not currently on antibiotics. He does also have a sacral wound, which he states has been there for the last year and a half and is also not healing well. The nurses advised he come to the emergency department for evaluation of worsening infection. Denies any fevers or chills. States that he does seem more fatigued than normal and spent a lot of the day sleeping yesterday. Lab work demonstrates leukocytosis and was otherwise unremarkable. X-ray of the bilateral feet and ankles demonstrates soft tissue wounds and swelling suggestive of cellulitis. There is no evidence for osteomyelitis at this time. Aerobic and anaerobic wound cultures obtained. Blood cultures obtained as well. Patient started on vancomycin and cefepime. Review of Systems REVIEW OF SYSTEMS: CONSTITUTIONAL: No fever, no malaise, no fatigue. HEENT: No recent visual problems or hearing problems. Denied any sore throat. CARDIOVASCULAR: No chest pain, orthopnea, PND, no palpitations, no syncope. PULMONARY: No shortness of breath, no cough, no hemoptysis. GASTROINTESTINAL: No diarrhea, no nausea, no vomiting, no abdominal pain. NEUROLOGICAL: No headaches, no weakness, no numbness. HEMATOLOGICAL: Denies any bleeding or petechiae. GENITOURINARY: Denies any burning micturition, frequency, or urgency. MUSCULOSKELETAL/RHEUMATOLOGICAL: Denies any joint pain, swelling, or any muscle pain. ENDOCRINE: Denies any polyuria or polydipsia. The rest of the 14-point review of systems is negative. Past Medical History Past Medical History: Hypertension Additional Past Medical History / Comment(s): paraplegic History of Any Multi-Drug Resistant Organisms: None Reported Past Surgical History: Back Surgery, Orthopedic Surgery Additional Past Surgical History / Comment(s): Bilateral leg surgeries. Past Anesthesia/Blood Transfusion Reactions: No Reported Reaction Past Psychological History: Anxiety Smoking Status: Never smoker Past Alcohol Use History: None Reported Past Drug Use History: None Reported Medications and Allergies Home Medications Medication Instructions Recorded Confirmed Type oxyCODONE-APAP 10-325MG [Percocet 1 tab PO QID PRN 06/04/22 10/16/23 History 10-325 mg] Patient Own Pump 0 bag 10/16/23 History Allergies Allergy/AdvReac Type Severity Reaction Status Date / Time vancomycin Allergy Dyspnea Verified 10/17/23 16:39 Physical Exam Vitals: Vital Signs Temp Pulse Pulse Resp BP BP Pulse Ox 10/17/23 07:21 98.4 F 63 17 92/50 100 10/17/23 01:51 98.8 F 80 17 102/65 95 10/16/23 23:00 70 16 101/69 95 10/16/23 22:40 99.5 F 40 L 16 92/59 93 L 10/16/23 22:22 16 10/16/23 21:38 98.4 F 72 19 140/68 99 10/16/23 20:02 97 16 104/52 97 10/16/23 19:53 98.8 F 98 18 103/59 95 10/16/23 17:25 99.0 F 83 18 109/46 98 10/16/23 14:50 94 18 111/62 97 Intake and Output 10/16/23 10/17/23 10/17/23 22:59 06:59 14:59 Intake Total 100 Balance 100 Intake: Intake, IV Titration 100 Amount Cefepime 2 gm In Sodium 100 Chloride 0.9% 100 ml @ 200 mls/hr IVPB Q8H [facility] Rx#:[id number] Other: Voiding Method Self-Catheterization # Voids 1 Weight 77.111 kg General appearance: alert, in no apparent distress Head exam: Present: atraumatic, normocephalic, normal inspection Respiratory exam: Present: normal lung sounds bilaterally. Absent: respiratory distress, wheezes, rales, rhonchi, stridor Cardiovascular Exam: Present: regular rate, normal rhythm, normal heart sounds. Absent: systolic murmur, diastolic murmur, rubs, gallop, clicks Neurological exam: Present: alert, oriented X3, CN II-XII intact Psychiatric exam: Present: normal affect, normal mood Skin exam: Present: warm, dry, intact, normal color. Absent: rash Results CBC & Chem 7: 10/19/23 14:45 10/19/23 14:45 Labs: Abnormal Lab Results - Last 24 Hours (Table) 10/16/23 10/16/23 Range/Units 15:03 15:03 WBC 16.0 H (3.8-10.6) k/uL RBC 3.73 L (4.30-5.90) m/uL Hgb 9.0 L (13.0-17.5) gm/dL Hct 27.4 L (39.0-53.0) % MCV 73.4 L (80.0-100.0) fL MCH 24.2 L (25.0-35.0) pg RDW 15.8 H (11.5-15.5) % Neutrophils # 13.1 H (1.3-7.7) k/uL Monocytes # 1.3 H (0-1.0) k/uL ESR 88 H (0-20) mm/Hr Sodium 135 L (137-145) mmol/L Carbon Dioxide 32 H (22-30) mmol/L Creatinine 0.60 L (0.66-1.25) mg/dL Glucose 133 H (74-99) mg/dL C-Reactive Protein 14.0 H (<1.0) mg/dL Total Protein 6.1 L (6.3-8.2) g/dL Albumin 2.9 L (3.5-5.0) g/dL Microbiology - Last 24 Hours (Table) 10/16/23 17:32 Gram Stain - Preliminary Foot - Left Thrombosis Risk Factor Assmnt - Choose All That Apply Any of the Below Risk Factors Present?: No Other Risk Factors: Yes Each Risk Factor Represents 2 Points: Age 61-74 years Other congenital or acquired thrombophilia - If yes, enter type in comment: No Thrombosis Risk Factor Assessment Total Risk Factor Score: 2 Thrombosis Risk Factor Assessment Level: Low Risk Assessment and Plan Assessment: 1. Cellulitis both lower extremities with stage IV pressure ulcer left heel/osteomyelitis -Patient received IV cefepime 2 g IV every 8 hours along with vancomycin; vancomycin had to be discontinued due to allergic reaction -Patient remains on IV cefepime; vancomycin is discontinued -ID to evaluate and make further recommendations 2. Infected decubitus ulcers; --sacral decubitus ulcer; stage III; present on admission -- Stage IV pressure ulcer left heel; present on admission Patient has been placed on IV antibiotics; wound care consulted 3. Leukocytosis; related to cellulitis and infected ulcers; will monitor CBC, CRP and procalcitonin; blood cultures and wound cultures have been obtained 4. Mild hyponatremia; sodium at 135 upon admission; we will continue with IV fluids in form of normal saline; monitor electrolytes and make adjustments as needed 5. Chronic anemia; hemoglobin at 9.0 which seems to be at baseline; we will continue to monitor CBC 6. History of hypertension; patient not on any antihypertensive therapy DVT prophylaxis; SCDs CODE STATUS; full code
--- NOTE | 2023-10-19 16:41 | P.PN ---
Subjective Progress Note Date: 10/18/23 67-year-old male, history of hypertension, paraplegia who presents to the emergency department for concerns of infection. Patient is a paraplegic and has developed wounds on the bilateral feet, worse on the left foot, over the last several weeks. He has nurses who check on the wounds and re-bandages them once a week. However, there is concern that they are not getting any better. Not currently on antibiotics. He does also have a sacral wound, which he states has been there for the last year and a half and is also not healing well. The nurses advised he come to the emergency department for evaluation of worsening infection. Denies any fevers or chills. States that he does seem more fatigued than normal and spent a lot of the day sleeping yesterday. Lab work demonstrates leukocytosis and was otherwise unremarkable. X-ray of the bilateral feet and ankles demonstrates soft tissue wounds and swelling suggestive of cellulitis. There is no evidence for osteomyelitis at this time. Aerobic and anaerobic wound cultures obtained. Blood cultures obtained as well. Patient started on vancomycin and cefepime. --Patient has been evaluated by ID and is placed on IV daptomycin; remains on IV cefepime Objective - Vital Signs Vital signs: Vital Signs Temp 98.8 F 10/18/23 07:49 Pulse 71 10/18/23 07:49 Resp 16 10/18/23 07:49 BP 116/53 10/18/23 07:49 Pulse Ox 98 10/18/23 07:49 FiO2 Intake & Output 10/17/23 10/18/23 10/18/23 18:59 06:59 18:59 Intake Total 480 1020 240 Output Total 500 500 Balance -20 520 240 Weight 77.111 kg Intake: Oral 480 1020 240 Output: Urine 500 500 Other: Voiding Method Self-Catheterization Self-Catheterization Self-Catheterization - Exam General appearance: alert, in no apparent distress Head exam: Present: atraumatic, normocephalic, normal inspection Respiratory exam: Present: normal lung sounds bilaterally. Absent: respiratory distress, wheezes, rales, rhonchi, stridor Cardiovascular Exam: Present: regular rate, normal rhythm, normal heart sounds. Absent: systolic murmur, diastolic murmur, rubs, gallop, clicks Neurological exam: Present: alert, oriented X3, CN II-XII intact Psychiatric exam: Present: normal affect, normal mood Skin exam: Present: warm, dry, intact, normal color. Absent: rash - Labs CBC & Chem 7: 10/19/23 14:45 10/19/23 14:45 Labs: Microbiology - Last 24 Hours (Table) 10/17/23 17:23 Gram Stain - Preliminary Foot - Left 10/16/23 17:00 Blood Culture - Preliminary Blood 10/16/23 17:15 Blood Culture - Preliminary Blood Assessment and Plan Assessment: 1. Cellulitis both lower extremities with stage IV pressure ulcer left heel/osteomyelitis -Patient received IV cefepime 2 g IV every 8 hours along with vancomycin; vancomycin had to be discontinued due to allergic reaction -Patient remains on IV cefepime; vancomycin is discontinued -ID to evaluate and make further recommendations 2. Infected decubitus ulcers; --sacral decubitus ulcer; stage III; present on admission -- Stage IV pressure ulcer left heel; present on admission Patient has been placed on IV antibiotics; wound care consulted 3. Leukocytosis; related to cellulitis and infected ulcers; will monitor CBC, CRP and procalcitonin; blood cultures and wound cultures have been obtained 4. Mild hyponatremia; sodium at 135 upon admission; we will continue with IV fluids in form of normal saline; monitor electrolytes and make adjustments as needed 5. Chronic anemia; hemoglobin at 9.0 which seems to be at baseline; we will continue to monitor CBC 6. History of hypertension; patient not on any antihypertensive therapy DVT prophylaxis; SCDs CODE STATUS; full code
--- NOTE | 2023-10-19 16:44 | P.PN ---
Subjective Progress Note Date: 10/19/23 67-year-old male, history of hypertension, paraplegia who presents to the emergency department for concerns of infection. Patient is a paraplegic and has developed wounds on the bilateral feet, worse on the left foot, over the last several weeks. He has nurses who check on the wounds and re-bandages them once a week. However, there is concern that they are not getting any better. Not currently on antibiotics. He does also have a sacral wound, which he states has been there for the last year and a half and is also not healing well. The nurses advised he come to the emergency department for evaluation of worsening infection. Denies any fevers or chills. States that he does seem more fatigued than normal and spent a lot of the day sleeping yesterday. Lab work demonstrates leukocytosis and was otherwise unremarkable. X-ray of the bilateral feet and ankles demonstrates soft tissue wounds and swelling suggestive of cellulitis. There is no evidence for osteomyelitis at this time. Aerobic and anaerobic wound cultures obtained. Blood cultures obtained as well. Patient started on vancomycin and cefepime. --Patient has been evaluated by ID and is placed on IV daptomycin; remains on IV cefepime 24-hour interval change 10/19/2023 Patient is seen and evaluated in room with family members at bedside; denies any specific complaints Vital signs are reviewed temperature 98.8, pulse 72, respirations 16 and blood pressure of 118/57 Lab review shows WBC of 11.1, hemoglobin of 8.7 and platelet count of 345, sodium 134, potassium 3.5, BUNs/creatinine of 14/0.63 patient presented to the hospital with a worsening wound especially to the left heel area that has been there for couple of weeks patient bonus palpable and there was some purulent drainage concerning for osteomyelitis. patient also have a stage III sacral pressure ulcer with the wound exposed no significant slough tissue or surrounding redness. local wound care to the left heel with a dry Aquacel dressing change daily to every 48 hours depending upon the drainage, will apply wound VAC to the sacral wound with a layer of Medihoney change Friday and patient to continue with cefepime local culture currently growing Staph aureus sensitivities pending add daptomycin pending culture we will order PICC line for tomorrow Objective - Vital Signs Vital signs: Vital Signs Temp 98.8 F 10/19/23 07:54 Pulse 72 10/19/23 07:54 Resp 16 10/19/23 07:54 BP 118/57 10/19/23 07:54 Pulse Ox 100 10/19/23 07:54 FiO2 Intake & Output 10/18/23 10/19/23 10/19/23 18:59 06:59 18:59 Intake Total 365 Output Total 800 725 900 Balance -787 -781 -697 Intake: Intake, IV Titration 125 Amount Cefepime 2 gm In Sodium 125 Chloride 0.9% 100 ml @ 200 mls/hr IVPB Q8H [facility] Rx#:[id number] Oral 240 Output: Urine 800 725 900 Other: Voiding Method Self-Catheterization Self-Catheterization Self-Catheterization - Exam General appearance: alert, in no apparent distress Head exam: Present: atraumatic, normocephalic, normal inspection Respiratory exam: Present: normal lung sounds bilaterally. Absent: respiratory distress, wheezes, rales, rhonchi, stridor Cardiovascular Exam: Present: regular rate, normal rhythm, normal heart sounds. Absent: systolic murmur, diastolic murmur, rubs, gallop, clicks Neurological exam: Present: alert, oriented X3, CN II-XII intact Psychiatric exam: Present: normal affect, normal mood Skin exam: Present: warm, dry, intact, normal color. Absent: rash - Labs CBC & Chem 7: 10/19/23 14:45 10/19/23 14:45 Labs: Microbiology - Last 24 Hours (Table) 10/16/23 17:00 Blood Culture - Preliminary Blood 10/16/23 17:15 Blood Culture - Preliminary Blood 10/17/23 17:23 Gram Stain - Preliminary Foot - Left Wound Culture - Preliminary Presumptive Staph aureus Assessment and Plan Assessment: 1. Cellulitis both lower extremities with stage IV pressure ulcer left heel/osteomyelitis -Patient received IV cefepime 2 g IV every 8 hours along with vancomycin; vancomycin had to be discontinued due to allergic reaction -Patient remains on IV cefepime; vancomycin is discontinued -ID to evaluate and make further recommendations 2. Infected decubitus ulcers; --sacral decubitus ulcer; stage III; present on admission -- Stage IV pressure ulcer left heel; present on admission Patient has been placed on IV antibiotics; wound care consulted 3. Leukocytosis; related to cellulitis and infected ulcers; will monitor CBC, CRP and procalcitonin; blood cultures and wound cultures have been obtained 4. Mild hyponatremia; sodium at 135 upon admission; we will continue with IV fluids in form of normal saline; monitor electrolytes and make adjustments as n eeded 5. Chronic anemia; hemoglobin at 9.0 which seems to be at baseline; we will continue to monitor CBC 6. History of hypertension; patient not on any antihypertensive therapy DVT prophylaxis; SCDs CODE STATUS; full code
[2023-10-19 19:30] VITALS: RESP 16
[2023-10-20 07:32] VITALS: BP 118/63; PULSE 66; TEMP 98.1
[2023-10-20] MEDS ORDERED: DAPTOmycin 500 MG VIAL ONE (09:00)
[2023-10-20] MEDS ORDERED: SODIUM CHLORIDE 0.9% 50 ML BAG ONE (09:00)
[2023-10-20] MEDS ORDERED: ONDANSETRON 4 MG/2 ML VIAL ONE (11:47)
[2023-10-20] MEDS ORDERED: oxyCODONE-APAP 10-325MG 1 EACH TAB ONE ×3 (12:32→21:02)
[2023-10-20] MEDS ORDERED: CEFEPIME 2 GM VIAL IVPB ONE (17:02)
[2023-10-20] MEDS ORDERED: SODIUM CHLORIDE 0.9% 100 ML ONE (17:02)
[2023-10-21] MEDS ORDERED: CEFEPIME 2 GM VIAL IVPB ONE ×5 (00:23→17:09)
[2023-10-21] MEDS ORDERED: SODIUM CHLORIDE 0.9% 100 ML ONE ×4 (00:24→17:09)
[2023-10-21] MEDS ORDERED: SENNOSIDES 8.6 MG TAB ONE (07:46)
[2023-10-21] MEDS ORDERED: oxyCODONE-APAP 10-325MG 1 EACH TAB ONE ×4 (07:46→21:01)
[2023-10-21] MEDS ORDERED: PANTOPRAZOLE 40 MG/10 ML VIAL ONE (07:46)
[2023-10-21] MEDS ORDERED: SODIUM CHLORIDE 0.9% 50 ML BAG ONE (09:00)
[2023-10-21] MEDS ORDERED: DAPTOmycin 500 MG VIAL ONE (09:00)
[2023-10-21] MEDS ORDERED: POTASSIUM CHLORIDE ER 20 MEQ TAB.ER PO ONE ×2 (17:41)
[2023-10-22] MEDS ORDERED: SODIUM CHLORIDE 0.9% 100 ML ONE ×3 (01:09→16:29)
[2023-10-22] MEDS ORDERED: CEFEPIME 2 GM VIAL IVPB ONE ×3 (01:09→16:29)
[2023-10-22] MEDS ORDERED: SODIUM CHLORIDE 0.9% 50 ML BAG ONE (09:00)
[2023-10-22] MEDS ORDERED: DAPTOmycin 500 MG VIAL ONE (09:00)
[2023-10-22] MEDS ORDERED: PANTOPRAZOLE 40 MG/10 ML VIAL ONE (10:00)
[2023-10-22] MEDS ORDERED: oxyCODONE-APAP 10-325MG 1 EACH TAB ONE ×4 (10:00→22:39)
[2023-10-22] MEDS ORDERED: ACETAMINOPHEN TAB 325 MG TAB ONE (16:18)
[2023-10-22] MEDS ORDERED: ONDANSETRON 4 MG/2 ML VIAL ONE (16:27)
[2023-10-22] MEDS ORDERED: SENNOSIDES 8.6 MG TAB ONE (22:40)
[2023-10-23] MEDS ORDERED: CEFEPIME 2 GM VIAL IVPB ONE ×4 (01:52→16:54)
[2023-10-23] MEDS ORDERED: SODIUM CHLORIDE 0.9% 100 ML ONE ×4 (01:52→16:54)
[2023-10-23] MEDS ORDERED: PANTOPRAZOLE 40 MG/10 ML VIAL ONE (08:50)
[2023-10-23] MEDS ORDERED: SENNOSIDES 8.6 MG TAB ONE ×2 (08:50→21:11)
[2023-10-23] MEDS ORDERED: oxyCODONE-APAP 10-325MG 1 EACH TAB ONE ×4 (08:50→21:11)
[2023-10-23] MEDS ORDERED: SODIUM CHLORIDE 0.9% 50 ML BAG ONE (09:00)
[2023-10-23] MEDS ORDERED: DAPTOmycin 500 MG VIAL ONE (09:00)
[2023-10-24] MEDS ORDERED: CEFEPIME 2 GM VIAL IVPB ONE ×4 (01:06→18:00)
[2023-10-24] MEDS ORDERED: PANTOPRAZOLE 40 MG/10 ML VIAL ONE (08:36)
[2023-10-24] MEDS ORDERED: oxyCODONE-APAP 10-325MG 1 EACH TAB ONE ×4 (08:36→20:36)
[2023-10-24] MEDS ORDERED: DAPTOmycin 500 MG VIAL ONE (09:00)
[2023-10-24] MEDS ORDERED: SODIUM CHLORIDE 0.9% 50 ML BAG ONE (09:00)
[2023-10-24] MEDS ORDERED: SENNOSIDES 8.6 MG TAB ONE ×2 (09:30→20:41)
[2023-10-24] MEDS ORDERED: ONDANSETRON 4 MG/2 ML VIAL ONE (10:36)
[2023-10-24] MEDS ORDERED: MELATONIN 5 MG TABLET ONE (20:36)
[2023-10-25] MEDS ORDERED: CEFEPIME 2 GM VIAL IVPB ONE ×3 (01:01→16:49)
[2023-10-25] MEDS ORDERED: PANTOPRAZOLE 40 MG/10 ML VIAL ONE (08:15)
[2023-10-25] MEDS ORDERED: SENNOSIDES 8.6 MG TAB ONE (08:15)
[2023-10-25] MEDS ORDERED: oxyCODONE-APAP 10-325MG 1 EACH TAB ONE ×4 (08:21→21:26)
[2023-10-25] MEDS ORDERED: SODIUM CHLORIDE 0.9% 50 ML BAG ONE (09:00)
[2023-10-25] MEDS ORDERED: DAPTOmycin 500 MG VIAL ONE (09:00)
[2023-10-25] MEDS ORDERED: MELATONIN 5 MG TABLET ONE (21:26)
[2023-10-25] MEDS ORDERED: SENNOSIDES-DOCUSATE SODIUM 1 EACH TAB PO ONE ×2 (21:27)
[2023-10-26] MEDS ORDERED: CEFEPIME 2 GM VIAL IVPB ONE ×3 (00:14→17:30)
[2023-10-26] MEDS ORDERED: SODIUM CHLORIDE 0.9% 50 ML BAG ONE (09:00)
[2023-10-26] MEDS ORDERED: DAPTOmycin 500 MG VIAL ONE (09:00)
[2023-10-26] MEDS ORDERED: PANTOPRAZOLE 40 MG/10 ML VIAL ONE (09:04)
[2023-10-26] MEDS ORDERED: oxyCODONE-APAP 10-325MG 1 EACH TAB ONE ×4 (09:05→21:06)
[2023-10-26] MEDS ORDERED: SENNOSIDES 8.6 MG TAB ONE (09:07)
[2023-10-26] MEDS ORDERED: ONDANSETRON 4 MG/2 ML VIAL ONE (09:28)
[2023-10-26] MEDS ORDERED: MELATONIN 5 MG TABLET ONE (21:05)
[2023-10-26] MEDS ORDERED: SENNOSIDES-DOCUSATE SODIUM 1 EACH TAB PO ONE ×2 (21:06)
[2023-10-27] MEDS ORDERED: CEFEPIME 2 GM VIAL IVPB ONE ×3 (01:06→17:58)
[2023-10-27] MEDS ORDERED: PANTOPRAZOLE 40 MG/10 ML VIAL ONE (09:10)
[2023-10-27] MEDS ORDERED: SENNOSIDES-DOCUSATE SODIUM 1 EACH TAB PO ONE ×4 (09:11→20:19)
[2023-10-27] MEDS ORDERED: oxyCODONE-APAP 10-325MG 1 EACH TAB ONE ×4 (09:11→22:43)
[2023-10-27] MEDS ORDERED: MELATONIN 5 MG TABLET ONE (20:18)
[2023-10-28] MEDS ORDERED: CEFEPIME 2 GM VIAL IVPB ONE ×2 (01:21→09:00)
[2023-10-28] MEDS ORDERED: PANTOPRAZOLE 40 MG/10 ML VIAL ONE (08:58)
[2023-10-28] MEDS ORDERED: SENNOSIDES-DOCUSATE SODIUM 1 EACH TAB PO ONE ×2 (08:59)
[2023-10-28] MEDS ORDERED: oxyCODONE-APAP 10-325MG 1 EACH TAB ONE ×3 (08:59→17:41)
[2023-11-01] MEDS ORDERED: PANTOPRAZOLE 40 MG/10 ML VIAL ONE (08:42)
[2023-11-01] MEDS ORDERED: APIXABAN 5 MG TAB ONE (08:42)
--- NOTE | 2023-11-07 15:52 | PN ---
Date of service 10/26/2023 PROGRESS NOTE LOCATION: [address] [place] [address]. REASON FOR FOLLOWUP: 1. Left heel osteomyelitis and stage IV pressure ulcer. 2. Sacral pressure ulcer. INTERVAL HISTORY: The patient is afebrile. The patient seems to be slightly frustrated and he is waiting for transfer to the half-way, pending insurance authorization. The patient is complaining of some nausea, but no vomiting. Denies any headache. No chest pain, shortness of breath, or cough. No abdominal pain. Denies having any diarrhea. PHYSICAL EXAMINATION: VITAL SIGNS: Blood pressure is 121/64, pulse of 78, temperature of 98. GENERAL DESCRIPTION: This is an elderly male, lying in bed, in no distress. HEENT: No pallor or scleral icterus. Oral mucosa is dry. LUNGS: Unlabored breathing. Clear to auscultation anteriorly. HEART: S1 and S2. Regular rate. ABDOMEN: Soft. No tenderness. No guarding or rigidity. EXTREMITIES: Left heel wound is currently nice. LABORATORY DATA: The patient's last white count was normal. Creatinine is normal. DIAGNOSTIC IMPRESSION AND PLAN: 1. The patient with left heel stage IV pressure ulcer with secondary cellulitis, underlying osteomyelitis. Culture positive for MSSA. Consideration for the patient on cefepime 2 g q.8 hours to continue, finish a 6-week course of therapy. 2. The patient with sacral pressure ulcer. Continue local wound care with wound VAC. Multiple questions and concerns were answered. MMODL / IJN: [id number] / MTDD
--- NOTE | 2023-11-07 15:52 | PN ---
PROGRESS NOTE DATE OF SERVICE: 10/27/2023 LOCATION: 7. REASON FOR FOLLOWUP: Left heel stage IV pressure ulcer with underlying osteomyelitis. INTERVAL HISTORY: The patient is afebrile, mentioned feeling slightly better today. He was seen on rounds this morning. The patient denies any chest pain, shortness of breath, or cough. No nausea, no vomiting. No abdominal pain. Has been complaining about his self catheterization and not getting the right side of the catheter. PHYSICAL EXAMINATION: VITAL SIGNS: Blood pressure is 117/63, pulse of 71, temperature 98.8. GENERAL DESCRIPTION: This is an elderly male, lying in bed, in no distress. RESPIRATORY: Unlabored breathing. Clear to auscultation anteriorly. HEART: S1, S2. Regular rate. ABDOMEN: Soft, no tenderness. LABORATORY DATA: Reviewed. DIAGNOSTIC IMPRESSION AND PLAN: 1. The patient with left heel stage IV pressure ulcer with underlying osteomyelitis. Culture positive for MSSA and Serratia. The patient is covered with cefepime. Currently waiting for placement. Plan is for a 6-week course of antibiotic and close outpatient followup. 2. Patient with a stage III pressure ulcer to the sacral area. Continue local wound care with wound VAC. MMODL / IJN: [id number] /
--- NOTE | 2023-11-07 15:53 | PN ---
PROGRESS NOTE DATE OF SERVICE: 10/28/2023 LOCATION: 7. REASON FOR FOLLOWUP: 1. Left heel pressure ulcer with underlying osteomyelitis. 2. Sacral pressure ulcer. INTERVAL HISTORY: The patient is afebrile. The patient is breathing comfortably on room air. Denies any chest pain, shortness of breath, or cough. No nausea, vomiting. No abdominal pain. No diarrhea has been reported. The has been complaining of developing a rash to the bilateral groin areas. PHYSICAL EXAMINATION: VITAL SIGNS: Blood pressure 120/65, pulse of 63, temperature 98 F. GENERAL DESCRIPTION: This is an elderly male lying in bed, in no distress. RESPIRATORY SYSTEM: Unlabored breathing. Clear to auscultation anteriorly. HEART: S1, S2. Regular rate. ABDOMEN: Soft. No tenderness. Bilateral groin areas do have evidence of rash suggestive of cutaneous candidiasis. EXTREMITIES: Left heel wound is currently dressed. DIAGNOSTIC IMPRESSION AND PLAN: 1. Patient with left heel stage IV pressure ulcer with underlying osteomyelitis. Culture positive for serratia and methicillin-sensitive Staphylococcus aureus. The patient is on cefepime. Plan is for a 6 week course of therapy, local wound care with dry Aquacel silver dressing. Keep the area off the pressure, that will help healing this wound, with weekly monitoring of CRP and sedimentation rate. 2. Bilateral groin area cutaneous candidiasis. Will consider nystatin powder twice a day. at the bedside. She did have multiple questions and concerns and I did answer in layman terms MMODL / IJN: [id number] / MTDD
[2023-11-12 14:50] LABS: HCT 27.6 % (39.0-53.0); HGB 8.5 gm/dL (13.0-17.5); RBC 3.64 m/uL (4.30-5.90); WBC 8.5 k/uL (3.8-10.6)
[2023-11-12 14:51] LABS: Basophils % (A) 0 %; Eosinophils # (A) 0.3 k/uL (0-0.7); Eosinophils % (A) 3 %; Lymphocytes # (A) 1.3 k/uL (1.0-4.8); Lymphocytes % (A) 15 %; MCH 23.2 pg (25.0-35.0); MCHC 30.6 g/dL (31.0-37.0); MCV 75.9 fL (80.0-100.0); Monocytes # (A) 0.6 k/uL (0-1.0); Monocytes % (A) 7 %; Neutrophils # (A) 6.3 k/uL (1.3-7.7); Neutrophils % (A) 74.4; Platelet Count 350 k/uL (150-450); RDW 16.1 % (11.5-15.5)
[2023-11-12 14:52] LABS: Glucose 95 mg/dL (74-99); Sodium 136 mmol/L (137-145)
[2023-11-12 14:53] LABS: ALT 75 U/L (4-49); AST 117 U/L (17-59); African American GFR (CKD) >90; Albumin 2.4 g/dL (3.5-5.0); Albumin/Globulin Ratio 0.8; Alkaline Phosphatase 349 U/L (38-126); Anion Gap 4 mmol/L; Blood Urea Nitrogen 14 mg/dL (9-20); C Reactive Protein 11.6 mg/dL (<1.0); Calcium 8.7 mg/dL (8.4-10.2); Carbon Dioxide 27 mmol/L (22-30); Chloride 105 mmol/L (98-107); Non-African American GFR(CKD) >90; Total Bilirubin 0.4 mg/dL (0.2-1.3); Total Protein 5.4 g/dL (6.3-8.2)
--- NOTE | 2023-11-23 16:44 | CDI ---
Documentation Clarification Form Date: 11/23/2023 04:32:02 PM From: Paige Almaraz Phone: Admit Date: 10/16/2023 04:17:00 PM Patient Name: Mohan Amato Visit Number: [id number] Discharge Date: 10/28/2023 08:01:00 PM ATTENTION: The Clinical Documentation Specialists (CDI) and [facility] Coding Staff appreciate your assistance in clarifying documentation. Please respond to the clarification below the line at the bottom and electronically sign. The CDI & [facility] Coding staff will review the response and follow-up if needed. Please note: Queries are made part of the Legal Health Record. If you have any questions, please contact the author of this message via ITS. Doctor/Provider: Shahzad Blount There is documentation of [facility] heel wounds per 10/23 SOAP Note (pg 1 of 14 paper chart) and multiple Progress Notes from 10/19 on (pg 2 of 14 paper chart). Additional specificity regarding the severity of the right heel wound is requested. Patient history/risk factors: 68yo M, paraplegia w Stg 4Left heel PUwith OM, Stg 3 Sacral PU, BLE cellulitis, Hyponatremia, MSSA, Serratia, colostomy Clinical Indicators: Cellulitis both lower extremities with stage IV pressure ulcer left heel/osteomyelitis. Infecteddecubitus ulcers; present on admission Stage IV pressure ulcer left heel; POA Treatment: Cefepime 2 g every 8hrs via PICC; vancomycin had to be discontinued due to allergicreaction. Wound care consulted Please clarify the severity of the right heel wound: [ ] Limited to breakdown of skin [ ] With fat layer exposed [ ] With necrosis of muscle [ x ] With necrosis of bone [ ] Other, Please specify [ ] Unable to determine (Template Last Revised: May 2020) MTDD
== END 2023-10-28 20:01 | DRG 602 ==
LOC: EC 13:48 → 4SSUR 16:17 → 5NMEDONC 21:05
PROVIDERS: ADMIT Internal Medicine; ATTEND Internal Medicine
PROC: 02HV33Z Insertion of Infusion Device into Superior Vena Cava, Percutaneous Approach (ICD-10-PCS; principal; 2023-10-20)
DX: L03.116 Cellulitis of left lower limb (principal); L89.153 Pressure ulcer of sacral region, stage 3; L89.614 Pressure ulcer of right heel, stage 4; L89.624 Pressure ulcer of left heel, stage 4; G82.20 Paraplegia, unspecified; M86.8X7 Other osteomyelitis, ankle and foot; E87.1 Hypo-osmolality and hyponatremia; L03.115 Cellulitis of right lower limb; Z88.0 Allergy status to penicillin; I10 Essential (primary) hypertension; Z88.1 Allergy status to other antibiotic agents; Z87.39 Personal history of other diseases of the musculoskeletal system and connective tissue; B37.2 Candidiasis of skin and nail; B96.89 Other specified bacterial agents as the cause of diseases classified elsewhere; B95.61 Methicillin susceptible Staphylococcus aureus infection as the cause of diseases classified elsewhere; D64.9 Anemia, unspecified; Z75.1 Person awaiting admission to adequate facility elsewhere; Z93.3 Colostomy status; M54.9 Dorsalgia, unspecified
CPT/HCPCS: 36415; 80048; 80053; 82306; 83605; 83735; 85025; 85027; 85652; 86140; 87040; 87070; 87075; 87077; 87186; 87205; 93005; 96365; 96366; 96375; 99285